=== PATIENT | female | born 1945 | race Hispanic/Latino ===

== ENCOUNTER 2017-08-18 01:42 | Inpatient (IN) | payer MEDICARE ==
[~2017-08-18] VITALS: Ht 160 cm; Wt 68.0 kg
[2017-08-18] MEDS ORDERED: SODIUM CHLORIDE 0.9% 1000ML 1,000 ML IV STA (02:00)
[2017-08-18] MEDS ORDERED: MORPHINE SULFATE 2 MG/ML SYR IV STA (02:00)
[2017-08-18] MEDS ORDERED: PANTOPRAZOLE 40 MG 10ML VIAL IV STA (02:00)
[2017-08-18] MEDS ORDERED: ONDANSETRON HCL 4 MG ORAL DISINTEGRATING TAB PO ONE (02:00)
[2017-08-18] MEDS ORDERED: PROMETHAZINE 12.5MG/ NACL 0.9% 12.5 MG/50 ML BAG IV ONE (02:00)
[2017-08-18 02:33] LABS: BASOPHILS # (AUTO) 0.1 (0.0-0.1); BASOPHILS % 0.4 % (0.0-1.0); EOSINOPHILS # (AUTO) 0.2 (0.0-0.4); EOSINOPHILS % 1.5 % (0.0-6.0); HEMATOCRIT 39.8 % (34.2-44.1); HEMOGLOBIN 13.5 g/dL (12.0-16.0); LYMPHOCYTES # (AUTO) 1.8 (1.0-3.2); MEAN CORPUSCULAR HEMOGLOBIN 29.2 pg (28-32); MEAN CORPUSCULAR HGB CONC 33.9 g/dL (31-35); MEAN CORPUSCULAR VOLUME 86.1 fL (81-99); MONOCYTES # (AUTO) 0.4 (0.2-0.8); MONOCYTES % 2.9 % (4.4-11.3); NEUTROPHILS # (AUTO) 11.6 (2.1-6.9); NEUTROPHILS % 81.6 % (38.7-80.0); PLATELET COUNT 233 x10e3/uL (140-360); RED BLOOD COUNT 4.62 x10e6/uL (3.6-5.1); RED CELL DISTRIBUTION WIDTH 12.9 % (11.7-14.4)
[2017-08-18 02:41] LABS: BILIRUBIN,URINE NEGATIVE (NEGATIVE); CLARITY,URINE CLEAR (CLEAR); COLOR,URINE YELLOW (YELLOW); KETONES,URINE NEGATIVE (NEGATIVE); LEUKOCYTE ESTERASE ,URINE NEGATIVE (NEGATIVE); NITRITE,URINE NEGATIVE (NEGATIVE); PROTEIN,URINE DIPSTICK TRACE (NEGATIVE); URINE UROBILINOGEN 0.2 mg/dL (0.2 - 1)
[2017-08-18 02:44] LABS: INR 1.08; PARTIAL THROMBOPLASTIN TIME 26.3 seconds (23.8-35.5); PROTHROMBIN TIME 13.2 seconds (11.9-14.5)
[2017-08-18 02:48] LABS: RBC,URINE 0-5 /HPF (0-5)
[2017-08-18 02:49] LABS: ALANINE AMINOTRANSFERASE 16 IU/L (0-55); ALBUMIN 3.8 g/dL (3.5-5.0); ALBUMIN/GLOBULIN RATIO 0.9 (0.8-2.0); ALKALINE PHOSPHATASE 86 IU/L (40-150); AMYLASE 116 U/L (25-125); ANION GAP 15.3 mmol/L (8-16); BLOOD UREA NITROGEN 15 mg/dL (7-26); BUN/CREATININE RATIO 18 (6-25); CALCIUM 9.3 mg/dL (8.4-10.2); CARBON DIOXIDE 28 mmol/L (22-29); CHLORIDE 103 mmol/L (98-107); CREATINE KINASE 84 IU/L (29-168); CREATININE, SERUM 0.82 mg/dL (0.57-1.11); EPITHELIAL CELLS,URINE FEW /LPF; EST GLOMERULAR FILTRATION RATE > 60 ML/MIN (60-); GLUCOSE 133 mg/dL (74-118); LIPASE 43 U/L (8-78); MAGNESIUM 2.1 MG/DL (1.3-2.1); POTASSIUM 3.3 mmol/L (3.5-5.1); SODIUM 143 mmol/L (136-145)
[2017-08-18] MEDS ORDERED: IOPAMIDOL 370 MG/ML 200 ML INFUS..BTL INJ ONE (03:59)
[2017-08-18] MEDS ORDERED: SODIUM CHLORIDE 0.9% 50ML 50 ML ONE (03:59)
--- NOTE | 2017-08-18 04:22 | Diagnostic Imaging Report ---
CHEST SINGLE (PORTABLE), 08/18/2017 2:00 AM Technique: CHEST SINGLE (PORTABLE) Comparison: None available. Clinical history: Abdominal pain Findings: Unremarkable portable appearance of the heart, mediastinum, lungs and pleural spaces. Impression: 1. Lines/Tubes: None 2. No acute abnormality. Signed by: Dr Daisy Santos MD on 08/18/2017 4:18 AM
--- NOTE | 2017-08-18 04:29 | Diagnostic Imaging Report ---
EXAM: CT ABDOMEN/PELVIS W DATE: 08/18/2017 2:00 AM INDICATION: \S\ORAL AND IV, ABD PAIN WORSE IN LLQ/N/V/CONSTIPATION \S\[id number] \S\0323 COMPARISON: None TECHNIQUE: The abdomen and pelvis were scanned using a multidetector helical scanner. Coronal and sagittal reformations were obtained. Routine protocol performed. IV Contrast: 100 ml Isovue 370 Oral contrast was administered. FINDINGS: LOWER THORAX: No consolidations LIVER/BILIARY: No masses. No ductal dilatation. GALLBLADDER: Unremarkable SPLEEN: Unremarkable PANCREAS: Unremarkable ADRENALS: No nodules KIDNEYS: No masses. Focal right inferior renal scarring. No hydronephrosis. GI TRACT: Diverticulosis is worse of the sigmoid colon with inflammatory change and thickening of the perisigmoid fascia (image 58, 59). Mild sigmoid thickening which could reflect chronic fibrosis/diverticular disease. Apparent thickening of the right/transverse colon likely related to underdistention. VESSELS: Mild atherosclerotic disease. PERITONEUM/RETROPERITONEUM: No free air or fluid LYMPH NODES: No lymphadenopathy REPRODUCTIVE ORGANS/BLADDER: Hysterectomy. BONES: No. Scattered degenerative changes worse at L5-S1. IMPRESSION: Acute uncomplicated sigmoid diverticulitis. 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 Signed by: Dr Daisy Santos MD on 08/18/2017 4:25 AM
[2017-08-18] MEDS ORDERED: LEVOFLOXACIN 500MG/D5W 100ML 100 ML IV SCH (04:30)
[2017-08-18] MEDS: METRONIDAZOLE 500MG/NS 100ML 100 ML IV SCH ×5 (05:00→23:23)
[2017-08-18] MEDS ORDERED: PROMETHAZINE HCL (IM) 25 MG/ML VIAL IV PRN (05:00)
--- OUTSIDE RECORDS SUMMARY | 2017-08-18 05:05 | XMS REPORT ---
Author Author 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 Allergies, Adverse Reactions, Alerts This patient has no known allergies or adverse reactions. Medications This patient has no known medications. Results Test Description Test Time Test Comments Text Results Atomic Results Result Comments RBC, Crossmatch 2 2016-09-23 13:59:00 Product 1 Code (test code=PRODCODE1) E0336 Unit 1 ID (test code=UNITID1) [id number] Unit 1 ABO (test code=UNITABO1) O Unit 1 Rh (test code=UNITRH1) POS Unit 1 Interp (test code=UNITINTERP1) Compatible Unit 1 Status (test code=UNITSTAT1) RE Product 2 Code (test code=PRODCODE2) E4532 Unit 2 ID (test code=UNITID2) [id number] Unit 2 ABO (test code=UNITABO2) O Unit 2 Rh (test code=UNITRH2) POS Unit 2 Interp (test code=UNITINTERP2) Compatible Unit 2 Status (test code=UNITSTAT2) RE [id number] 04:02:00* Test Item Value Reference Range Comments WBC (test code=WBC) 8.4 K/cumm 4.4-10.5 RBC (test code=RBC) 3.44 M/cumm 3.75-5.20 Hemoglobin (test code=HGB) 10.4 gm/dL 12.2-14.8 Hematocrit (test code=HCT) 30.6 % 36.5-44.4 MCV (test code=MCV) 89.0 fL 80-100 MCH (test code=MCH) 30.2 pg 27.0-32.5 MCHC (test code=MCHC) 34.0 % 32.0-37.5 RDW (test code=RDW) 13.4 % 11.5-14.5 Platelet Count (test code=PLTCT) 179 K/cumm 140-440 MPV (test code=MPV) 12.0 fL [id number] 21:30:00* Test Item Value Reference Range Comments WBC (test code=WBC) 9.9 K/cumm 4.4-10.5 RBC (test code=RBC) 3.73 M/cumm 3.75-5.20 Hemoglobin (test code=HGB) 11.2 gm/dL 12.2-14.8 Hematocrit (test code=HCT) 33.5 % 36.5-44.4 MCV (test code=MCV) 89.8 fL 80-100 MCH (test code=MCH) 30.0 pg 27.0-32.5 MCHC (test code=MCHC) 33.4 % 32.0-37.5 RDW (test code=RDW) 13.5 % 11.5-14.5 Platelet Count (test code=PLTCT) 197 K/cumm 140-440 MPV (test code=MPV) 12.0 fL [id number] 16:08:00* Test Item Value Reference Range Comments WBC (test code=WBC) 11.1 K/cumm 4.4-10.5 RBC (test code=RBC) 3.69 M/cumm 3.75-5.20 Hemoglobin (test code=HGB) 11.0 gm/dL 12.2-14.8 Hematocrit (test code=HCT) 33.0 % 36.5-44.4 MCV (test code=MCV) 89.4 fL 80-100 MCH (test code=MCH) 29.8 pg 27.0-32.5 MCHC (test code=MCHC) 33.3 % 32.0-37.5 RDW (test code=RDW) 13.3 % 11.5-14.5 Platelet Count (test code=PLTCT) 177 K/cumm 140-440 MPV (test code=MPV) 12.1 fL Antibody Screen - [id number] 12:57:00* Test Item Value Reference Range Comments Antibody Screen (test code=ABSCR) Negative Comprehensive Metabolic [id number] 12:46:00* Test Item Value Reference Range Comments Sodium (test code=NA) 141 mmol/L 135-145 Potassium (test code=K) 4.6 mmol/L 3.5-5.1 Chloride (test code=CL) 104 mmol/L 98-105 Carbon Dioxide (test code=CO2) 27 mmol/L 22-29 Anion Gap (test code=AGAP) 10 mmol/L 7-16 Glucose (test code=GLU) 103 mg/dL 70-115 Blood Urea Nitrogen (test code=BUN) 15 mg/dL 8-23 Creatinine (test code=CREAT) 0.6 mg/dL 0.5-0.9 BUN/Creatinine Ratio (test code=BCRATIO) 25.0 Calcium (test code=CA) 9.6 mg/dL 8.3-10.5 Prot Total (test code=TP) 7.2 g/dL 6.4-8.3 Albumin (test code=ALB) 4.2 g/dL 3.5-5.2 A/G Ratio (test code=AGRATIO) 1.4 Ratio Globulin (test code=GLOB) 3.0 2.9-3.1 Bili Total (test code=TBIL) 0.5 mg/dL 0.1-0.9 Alk Phos (test code=APHOS) 80 U/L 35-104 AST (test code=AST) 18 U/L 1-32 ALT (test code=ALT) 13 U/L 1-33 Estimated GFR (test code=GFR) >60 mL/min/1.73m2 eGFR (estimated Glomerular Filtration Rate) is an estimated value,calculated from the patient's serum creatinine using the MDRD equation.It is NOT the patient's actual GFR. The eGFR provides a more clinicallyuseful measure of kidney disease than serum creatinine alone.This calculation takes sex and race into account, if the informationis provided. If the race is not provided, and the patient isAfrican- Slovenian, multiply by 1.212. If sex is not provided, and thepatient is female, multiply by 0.742. Results for patients <18 years ofage have not been validated by the MDRD study and should be interpretedwith caution.eGFR Result Interpretation:eGFR > or=60 is in the Normal RangeeGFR < 60 may mean kidney diseaseeGFR < 15 may mean kidney failureRanges recommended by the National Kidney Foundation,http://nkdep.nih.gov CBC with [id number] 12:42:00* Test Item Value Reference Range Comments WBC (test code=WBC) 8.0 K/cumm 4.4-10.5 RBC (test code=RBC) 4.17 M/cumm 3.75-5.20 Hemoglobin (test code=HGB) 12.6 gm/dL 12.2-14.8 Hematocrit (test code=HCT) 37.1 % 36.5-44.4 MCV (test code=MCV) 89.0 fL 80-100 MCH (test code=MCH) 30.2 pg 27.0-32.5 MCHC (test code=MCHC) 34.0 % 32.0-37.5 RDW (test code=RDW) 13.4 % 11.5-14.5 Platelet Count (test code=PLTCT) 194 K/cumm 140-440 MPV (test code=MPV) 12.0 fL Diff Method (test code=DIFFM) Smear Neutrophil (test code=NEUT) 74.9 % 36-70 Lymphocyte (test code=LYMPH) 17.9 % 12-44 Monocyte (test code=MONO) 4.5 % 0-11 Eosinophil (test code=EOS) 2.4 % 0-7 Basophil (test code=BASO) 0.3 % 0-2 Neutro Abs (test code=ANEUT) 6.0 K/cumm 1.6-7.4 Lymph Abs (test code=ALYMPH) 1.4 K/cumm 0.5-4.6 [place]verse Abs (test code=AMONO) 0.4 K/cumm 0.0-1.2 Eos Abs (test code=AEOS) 0.19 K/cumm 0.00-0.74 Baso Abs (test code=ABASO) 0.0 K/cumm 0.00-0.21 RBC Morphology (test code=RBCMRPH) Normal Platelet Est (test code=PLTEST) Adequate Platelets on Smear Few platelet clumps noted on smear Prothrombin [id number] 12:41:00* Test Item Value Reference Range Comments PT (test code=PT) 10.2 seconds 9.6-13.1 INR (test code=INR) 1.02 Ratio 0.6-1.2 Partial Thromboplastin [id number] 12:41:00* Test Item Value Reference Range Comments aPTT (test code=PTT) 23.1 seconds 22.4-33.2 Blood Type and [id number] 12:35:00* Test Item Value Reference Range Comments ABO type (test code=ABO) A Rh Type (test code=RH) Positive Occult [id number] 12:20:00* Test Item Value Reference Range Comments Occ Bld (test code=HSOB) Positive Negative CHEST SINGLE (PORTABLE) [place] [address] Patient Name: KAI MARIE MR #: [id number] : 1945 Age/Sex: 71/F Req #: [id number] Adm Physician: Ordered by: LISA WRIGHT MD Report #: [id number] Location: ER Room/Bed: Procedure: [id number] DX/ CHEST SINGLE (PORTABLE) Exam Date: 08/18/17 Exam Time: 334 REPORT STATUS: Signed CHEST SINGLE (PORTABLE), 08/18/2017 2: 00 AM Technique: CHEST SINGLE (PORTABLE) Comparison: None available. Clinical history: Abdominal pain Findings: Unremarkable portable appearance of the heart, mediastinum, lungs and pleural spaces. Impression: 1. Lines/Tubes: None 2. No acute abnormality. Signed by: Dr Michelle Santos MD on 08/18/2017 4:18 AM Dictated By: MICHELLE SANTOS MD 7 Transcribed By: KAIT on 08/18/17417 COPY TO: LISA WRIGHT MD CT ABDOMEN /PELVIS W [facility] [address] [place] [address] Patient Name: KAI MARIE MR #: [id number] : 1945 Age/Sex: 71/F Req #: [id number] Adm Physician: Ordered by: LISA WRIGHT MD Report #: [id number] Location: ER Room/Bed: Procedure: [id number] CT/CT ABDOMEN/PELVIS W Exam Date: 08/18/17 Exam Time: 322 REPORT STATUS: Signed EXAM: CT ABDOMEN/PELVIS W DATE: 08/18/2017 2:00 AM INDICATION: S ORAL AND IV, ABD PAIN WORSE IN LLQ/N/V/CONSTIPATION S [id number] COMPARISON: None TECHNIQUE: The abdomen and pelvis were scanned using a multidetector helical scanner. Coronal and sagittal reformations were obtained. Routine protocol performed. IV Contrast: 100 ml Isovue 370 Oral contrast was administered. FINDINGS: LOWER THORAX: No consolidations LIVER/BILIARY: No masses. No ductal dilatation. GALLBLADDER: Unremarkable SPLEEN: Unremarkable PANCREAS: Unremarkable ADRENALS: No nodules KIDNEYS: No masses. Focal right inferior renal scarring. No hydronephrosis. GI TRACT: Diverticulosis is worse of the sigmoid colon with inflammatory change and thickening of the perisigmoid fascia (image 58, 59). Mild sigmoid thickening which could reflect chronic fibrosis/ diverticular disease. Apparent thickening of the right/transverse colon likely related to underdistention. VESSELS: Mild atherosclerotic disease. PERITONEUM/RETROPERITONEUM: No free air or fluid LYMPH NODES: No lymphadenopathy REPRODUCTIVE ORGANS/BLADDER: Hysterectomy. BONES: No. Scattered degenerative changes worse at L5-S1. IMPRESSION: Acute uncomplicated sigmoid diverticulitis. 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 Signed by: Dr Michelle Santos MD on 2017 4:25 AM Dictated By: MICHELLE SANTOS MD 4 Transcribed By: KAIT on 08/18/17424 COPY TO: LISA WRIGHT MD
[2017-08-18] MEDS: SODIUM CHLORIDE 0.9% 1000ML 1,000 ML IV SCH ×2 (06:15→17:15)
[2017-08-18 06:16] VITALS: BP 190/78
[2017-08-18] MEDS: MORPHINE SULFATE 2 MG/ML SYR IV PRN ×3 (06:56→16:38)
[2017-08-18 08:00] VITALS: BP 159/72
--- NOTE | 2017-08-18 08:35 | History and Physical ---
PRIMARY CARE PHYSICIAN: Doctor in [place]. CHIEF COMPLAINT: Abdominal pain, nausea, vomiting and diarrhea. HISTORY OF PRESENT ILLNESS: A 71-year-old woman with a history of diverticulitis, now developing lower abdominal pain over the past month now worsening. Pain now 10/10 with diarrhea and vomiting for the past few days. Therefore, she came to the hospital. Here she was found to have acute diverticulitis. She was admitted for further evaluation and management. PAST MEDICAL HISTORY: Diverticulitis, right renal cancer, status post partial nephrectomy. PAST SURGICAL HISTORY: Hysterectomy, right renal cancer, status post partial nephrectomy. ALLERGIES: PER ELECTRONIC MEDICAL RECORD. FAMILY HISTORY/SOCIAL HISTORY: Patient is . She has 2 children. One is . No alcohol, illicits or cigarettes. MEDICATIONS: Per electronic medical record. REVIEW OF SYSTEMS: Denies any dizziness or chest pain. PHYSICAL EXAMINATION VITAL SIGNS: Reviewed. GENERAL: A tired-appearing woman resting in bed. HEENT: Anicteric. Pupils respond to light. No oral lesions. CARDIOVASCULAR: Normal S1 and S2. LUNGS: Moderate breath sounds. ABDOMEN: Soft and nondistended. She has tenderness in the lower quadrants. EXTREMITIES: No edema or calf tenderness. NEUROLOGICAL: Alert and oriented times 3. Moving all extremities. SKIN: Dry. PSYCHIATRIC: Flat affect. LABS: Reviewed. MEDICATIONS: Reviewed. ASSESSMENT AND PLAN: A 71-year-old woman with: 1. Acute sigmoid diverticulitis: Make the patient n.p.o. Intravenous fluid rehydration. Intravenous Levaquin and intravenous Flagyl. 2. Urinary tract infection: Treat with Levaquin and follow up cultures. 3. Hypertension: Treat empirically. 4. Overweight state: Body mass index 26.6. Hemoglobin A1c and lipid panel. 5. Abdominal pain: Use p.r.n. pain medications. 6. Prophylaxis: Use sequential compression devices and proton pump inhibitor. 7. Disposition: Monitor closely. N.p.o. today. Reassess tomorrow. Follow up urine culture. Job#: [id number] [place]
[2017-08-18 08:49] VITALS: BP 159/72
[2017-08-18] MEDS ORDERED: POTASSIUM CHLORIDE 20MEQ/100ML 100 ML IV ONE (09:00)
[2017-08-18] MEDS ORDERED: FAMOTIDINE 20 MG/2 ML VIAL IV SCH (09:00)
[2017-08-18] MEDS: PANTOPRAZOLE 40 MG 10ML VIAL IV SCH (09:00)
[2017-08-18 12:49] VITALS: BP 151/67
[2017-08-18 15:50] VITALS: BP 169/72
[2017-08-18 20:58] VITALS: BP 172/76
[2017-08-18] MEDS: LABETALOL HCL 100 MG TAB PO SCH (22:21)
[2017-08-19] VITALS (8 sets, daily range): BP systolic 130–164; BP diastolic 66–84
[2017-08-19] MEDS: SODIUM CHLORIDE 0.9% 1000ML 1,000 ML IV SCH ×3 (00:47→20:47)
[2017-08-19] MEDS: METRONIDAZOLE 500MG/NS 100ML 100 ML IV SCH ×4 (05:41→23:26)
[2017-08-19 07:28] LABS: BASOPHILS # (AUTO) 0.1 (0.0-0.1); BASOPHILS % 0.6 % (0.0-1.0); EOSINOPHILS # (AUTO) 0.2 (0.0-0.4); EOSINOPHILS % 2.3 % (0.0-6.0); HEMATOCRIT 35.8 % (34.2-44.1); HEMOGLOBIN 11.9 g/dL (12.0-16.0); LYMPHOCYTES # (AUTO) 1.8 (1.0-3.2); LYMPHOCYTES % 20.6 % (18.0-39.1); MEAN CORPUSCULAR HEMOGLOBIN 29.2 pg (28-32); MEAN CORPUSCULAR HGB CONC 33.2 g/dL (31-35); MEAN CORPUSCULAR VOLUME 87.7 fL (81-99); MONOCYTES # (AUTO) 0.5 (0.2-0.8); MONOCYTES % 6.3 % (4.4-11.3); NEUTROPHILS % 69.7 % (38.7-80.0); PLATELET COUNT 193 x10e3/uL (140-360); RED BLOOD COUNT 4.08 x10e6/uL (3.6-5.1); RED CELL DISTRIBUTION WIDTH 13.2 % (11.7-14.4)
[2017-08-19 07:53] LABS: ALANINE AMINOTRANSFERASE 15 IU/L (0-55); ALBUMIN/GLOBULIN RATIO 0.9 (0.8-2.0); ALKALINE PHOSPHATASE 65 IU/L (40-150); ANION GAP 10.6 mmol/L (8-16); BLOOD UREA NITROGEN 8 mg/dL (7-26); BUN/CREATININE RATIO 11 (6-25); CALCIUM 8.7 mg/dL (8.4-10.2); CARBON DIOXIDE 25 mmol/L (22-29); CHLORIDE 106 mmol/L (98-107); CREATININE, SERUM 0.73 mg/dL (0.57-1.11); EST GLOMERULAR FILTRATION RATE > 60 ML/MIN (60-); GLUCOSE 90 mg/dL (74-118); POTASSIUM 3.6 mmol/L (3.5-5.1); SODIUM 138 mmol/L (136-145)
[2017-08-19] MEDS: LEVOFLOXACIN 500MG/D5W 100ML 100 ML IV SCH (08:25)
[2017-08-19] MEDS: LABETALOL HCL 100 MG TAB PO SCH ×2 (08:26→20:34)
[2017-08-19] MEDS: PANTOPRAZOLE 40 MG 10ML VIAL IV SCH (08:26)
[2017-08-19] MEDS: MORPHINE SULFATE 2 MG/ML SYR IV PRN (09:23)
[2017-08-19] MEDS ORDERED: POTASSIUM CHLORIDE 20MEQ/100ML 100 ML IV ONE (15:30)
[2017-08-19 17:42] LABS: BASOPHILS % 0.4 % (0.0-1.0); EOSINOPHILS # (AUTO) 0.2 (0.0-0.4); EOSINOPHILS % 2.4 % (0.0-6.0); HEMATOCRIT 33.6 % (34.2-44.1); HEMOGLOBIN 11.3 g/dL (12.0-16.0); LYMPHOCYTES # (AUTO) 1.3 (1.0-3.2); LYMPHOCYTES % 13.7 % (18.0-39.1); MEAN CORPUSCULAR HEMOGLOBIN 29.2 pg (28-32); MEAN CORPUSCULAR HGB CONC 33.6 g/dL (31-35); MEAN CORPUSCULAR VOLUME 86.8 fL (81-99); MONOCYTES # (AUTO) 0.5 (0.2-0.8); MONOCYTES % 5.3 % (4.4-11.3); NEUTROPHILS # (AUTO) 7.4 (2.1-6.9); NEUTROPHILS % 77.7 % (38.7-80.0); PLATELET COUNT 181 x10e3/uL (140-360); RED BLOOD COUNT 3.87 x10e6/uL (3.6-5.1); RED CELL DISTRIBUTION WIDTH 13.2 % (11.7-14.4)
--- NOTE | 2017-08-19 18:40 | Progress Note ---
DATE: August 19, 2017 INTERNAL MEDICINE PROGRESS NOTE TIME: 1620 hours. OVERNIGHT: Improvement in symptoms. REVIEW OF SYSTEMS: Patient denies shortness of breath or chest pain. Furthermore, denies headache, dizziness, or vomiting. Denies constipation. Continues with complaint of lower abdomen pain with soft stools and flatus. Denies any nausea or vomiting. PHYSICAL EXAMINATION VITAL SIGNS: Temperature 98.6 orally, pulse 83, respirations 18, blood pressure is 145/66, and pulse ox 98% on room air. Blood pressure taken after patient returned from bathroom. GENERAL: This is a tired-appearing elderly female, lying supine in bed. HEENT: Oral mucosa moist and intact. PERRLA. No sinus tenderness. CARDIOVASCULAR: S1 and S2 auscultated without clicks, murmurs, or rubs. LUNGS: Bilateral breath sounds CTA with good excursion. ABDOMEN: Soft and nondistended. Patient has tenderness in the lower quadrants to include the umbilical area. EXTREMITIES: No edema or calf tenderness. SKIN: Dry. PSYCHIATRIC: Flat affect. NEUROLOGIC: Moves all extremities and follows all commands. Conversant and alert and oriented x3. LABS: WBCs are 8.6 and H and H is 11.9 and 35.8 respectively, and platelet count is 193. Chemistries with sodium 138, potassium 3.6, chloride 106, CO2 25, gap 10.6, BUN is 8, creatinine 0.73, and estimated GFR is greater than 60. Total protein is low at 6.3 with an albumin of 3. Amylase and lipase within normal limits from previous days prior. Lipid panel within normal limits. MEDICATIONS 1. Flagyl q.6h. IV. 2. P.r.n. IV morphine sulfate as needed every 4 hours. 3. Labetalol 150 mg p.o. q.12h. 4. Protonix 40 mg IV daily. 5. Levaquin IV daily. 6. IV fluids at 100 mL/hour normal saline. 7. P.r.n. labetalol q.2h. for elevated blood pressure. 8. P.r.n. Zofran q.4h. p.r.n. 4 mg nausea and vomiting. 9. Phenergan 6.25 mg q.4h. p.r.n. IV nausea and vomiting. ASSESSMENT AND PLAN: This is a 71-year-old woman with; 1. Acute sigmoid diverticulitis: Failed outpatient treatment. Patient NPO day #2 with slight improvement, consider advancing diet to clear liquids in morning. Continue IV Levaquin and Flagyl. 2. Urinary tract infection: Levaquin and follow up urinary cultures. 3. Hypertension: Advancing beta dalila, can titrate on following day. 4. Overweight state, body mass index greater than 25: Hemoglobin A1c 5.5 and lipid panel within normal limits. Caloric restriction as an outpatient. 1. Prophylaxis: Sequential compression devices and proton pump inhibitor. 2. Disposition: Obtain H and H for reports of purnima stool. Continue NPO as the patient has only slight improvement in cramping symptoms. Urine culture is positive for gram-negative rods and contamination. Covered by Silvia. Dictated By: Carrie Liao NP Job#: [id number] VINEET
[2017-08-20] VITALS (9 sets, daily range): BP systolic 133–150; BP diastolic 60–70
[2017-08-20] MEDS: SODIUM CHLORIDE 0.9% 1000ML 1,000 ML IV SCH ×3 (03:16→17:18)
[2017-08-20] MEDS: METRONIDAZOLE 500MG/NS 100ML 100 ML IV SCH ×3 (05:20→17:18)
[2017-08-20 07:04] LABS: BASOPHILS % 0.5 % (0.0-1.0); EOSINOPHILS # (AUTO) 0.2 (0.0-0.4); EOSINOPHILS % 2.8 % (0.0-6.0); HEMATOCRIT 34.2 % (34.2-44.1); HEMOGLOBIN 11.5 g/dL (12.0-16.0); LYMPHOCYTES # (AUTO) 1.5 (1.0-3.2); LYMPHOCYTES % 17.7 % (18.0-39.1); MEAN CORPUSCULAR HEMOGLOBIN 29.1 pg (28-32); MEAN CORPUSCULAR HGB CONC 33.6 g/dL (31-35); MEAN CORPUSCULAR VOLUME 86.6 fL (81-99); MONOCYTES # (AUTO) 0.5 (0.2-0.8); MONOCYTES % 5.4 % (4.4-11.3); NEUTROPHILS # (AUTO) 6.3 (2.1-6.9); PLATELET COUNT 195 x10e3/uL (140-360); RED BLOOD COUNT 3.95 x10e6/uL (3.6-5.1)
[2017-08-20 07:32] LABS: ALANINE AMINOTRANSFERASE 12 IU/L (0-55); ALBUMIN/GLOBULIN RATIO 0.9 (0.8-2.0); ALKALINE PHOSPHATASE 74 IU/L (40-150); ANION GAP 12.5 mmol/L (8-16); BLOOD UREA NITROGEN 7 mg/dL (7-26); BUN/CREATININE RATIO 10 (6-25); CALCIUM 8.7 mg/dL (8.4-10.2); CARBON DIOXIDE 23 mmol/L (22-29); CHLORIDE 107 mmol/L (98-107); CREATININE, SERUM 0.67 mg/dL (0.57-1.11); EST GLOMERULAR FILTRATION RATE > 60 ML/MIN (60-); GLUCOSE 71 mg/dL (74-118); POTASSIUM 3.5 mmol/L (3.5-5.1); SODIUM 139 mmol/L (136-145)
[2017-08-20] MEDS: MORPHINE SULFATE 2 MG/ML SYR IV PRN (09:12)
[2017-08-20] MEDS: PANTOPRAZOLE 40 MG 10ML VIAL IV SCH (09:34)
[2017-08-20] MEDS: LEVOFLOXACIN 500MG/D5W 100ML 100 ML IV SCH (09:34)
[2017-08-20] MEDS: LABETALOL HCL 100 MG TAB PO SCH ×2 (09:34→20:51)
[2017-08-20] MEDS: ONDANSETRON HCL 4 MG ORAL DISINTEGRATING TAB PO PRN (09:35)
--- NOTE | 2017-08-20 11:13 | Progress Note ---
DATE: August 20, 2017 TIME: 6:49 a.m. OVERNIGHT: Some blood per rectum. REVIEW OF SYSTEMS: Denies any dizziness or chest pain. PHYSICAL EXAMINATION VITAL SIGNS: Reviewed. GENERAL: A tired-appearing woman resting in bed. HEENT: Anicteric. CARDIOVASCULAR: Normal S1 and S2. LUNGS: Moderate breath sounds. ABDOMEN: Soft and nondistended. She has left lower abdominal tenderness. EXTREMITIES: No edema. SKIN: Dry. PSYCHIATRIC: Flat affect. LABS: Reviewed. MEDICATIONS: Reviewed. ASSESSMENT: This is a 71-year-old woman with: 1. Acute sigmoid diverticulitis. 2. Rectal bleeding. 3. Urinary tract infection with gram-negative rods. 4. Overweight state: Body mass index 26.6. Hemoglobin A1c is 5.5, LDL is 90. 5. Abdominal pain. PLAN 1. Continue IV metronidazole and IV Levaquin. 2. Continue blood pressure control. 3. Continue IV PPI. 4. Endoscopy is pending. 5. Continue n.p.o. status at this time. 6. Check H and H. 7. Follow up urine culture. Job#: [id number] MARI
[2017-08-21] VITALS (7 sets, daily range): BP systolic 123–155; BP diastolic 58–67
[2017-08-21] MEDS: METRONIDAZOLE 500MG/NS 100ML 100 ML IV SCH ×4 (00:08→17:29)
[2017-08-21] MEDS: SODIUM CHLORIDE 0.9% 1000ML 1,000 ML IV SCH ×4 (03:05→17:30)
[2017-08-21] MEDS ORDERED: AZTREONAM 0.5 GM in WATER STERILE 10ML VIAL 10 ML IV SCH (07:15)
[2017-08-21] MEDS: LABETALOL HCL 100 MG TAB PO SCH ×2 (08:17→21:27)
[2017-08-21] MEDS: PANTOPRAZOLE 40 MG 10ML VIAL IV SCH (08:17)
[2017-08-21] MEDS: AZTREONAM 1 GM VIAL IV SCH ×3 (08:51→21:28)
[2017-08-21] MEDS: ONDANSETRON HCL 4 MG ORAL DISINTEGRATING TAB PO PRN (08:52)
[2017-08-21] MEDS: LEVOFLOXACIN 500MG/D5W 100ML 100 ML IV SCH (08:52)
--- NOTE | 2017-08-21 08:54 | Progress Note ---
DATE: August 21, 2017 TIME: 8:26 a.m. OVERNIGHT: Abdominal discomfort with diet. REVIEW OF SYSTEMS: Denies any dizziness. PHYSICAL EXAMINATION VITAL SIGNS: Reviewed. GENERAL: A tired-appearing woman resting in bed. HEENT: Anicteric. CARDIOVASCULAR: Normal S1 and S2. LUNGS: Moderate breath sounds. ABDOMEN: Soft and nontender. She has mild midabdominal discomfort on palpation. EXTREMITIES: No edema. SKIN: Dry. PSYCHIATRIC: Flat affect. LABS: Reviewed. MEDICATIONS: Reviewed. ASSESSMENT: A 71-year-old woman with: 1. Acute sigmoid diverticulitis. 2. Rectal bleeding. 3. Urinary tract infection with Escherichia coli. 4. Overweight state: Body mass index 26.6. Hemoglobin A1c 5.5, LDL 90. 5. Abdominal pain. PLAN 1. Start IV aztreonam due penicillin and sulfa allergy and for E. coli urinary tract infection. 2. Diet per GI service. 3. Monitor H and H. 4. Leukocytosis has resolved. 5. Continue current management. Job#: [id number] MARI
[2017-08-21] MEDS ORDERED: MORPHINE SULFATE 2 MG/ML SYR IV PRN (12:15)
[2017-08-22] VITALS (8 sets, daily range): BP systolic 135–163; BP diastolic 63–73
[2017-08-22] MEDS: METRONIDAZOLE 500MG/NS 100ML 100 ML IV SCH ×5 (00:12→23:18)
[2017-08-22] MEDS: AZTREONAM 1 GM VIAL IV SCH ×2 (06:36→13:22)
--- NOTE | 2017-08-22 07:35 | Progress Note ---
DATE: August 22, 2017 TIME: 6 a.m. OVERNIGHT: Feeling a little better. Continues on liquid diet. REVIEW OF SYSTEMS: Denies any dizziness or chest pain. PHYSICAL EXAMINATION VITAL SIGNS: Reviewed. GENERAL: A tired-appearing woman resting in bed. HEENT: Anicteric. CARDIOVASCULAR: Normal S1 and S2. LUNGS: Moderate breath sounds. ABDOMEN: Soft and nondistended. She has tenderness and diffuse which is mild. EXTREMITIES: No edema. SKIN: Dry. PSYCHIATRIC: Flat affect. LABS: Reviewed. MEDICATIONS: Reviewed. ASSESSMENT: A 71-year-old woman with: 1. Acute sigmoid diverticulitis. 2. Rectal bleeding. 3. Urinary tract infection with Escherichia coli. 4. Overweight state: Body mass index 26.6. Hemoglobin A1c 5.5. 5. Abdominal pain. PLAN 1. Continue IV aztreonam for E. coli urinary tract infection. 2. Continue liquid diet per GI services. 3. Follow H and H. 4. Leukocytosis has resolved. 5. Renal function appears normal. 6. Continue current care. Continue Flagyl and Levaquin. Job#: [id number] MARI
[2017-08-22] MEDS: SODIUM CHLORIDE 0.9% 1000ML 1,000 ML IV SCH ×2 (07:59→18:47)
[2017-08-22] MEDS: LEVOFLOXACIN 500MG/D5W 100ML 100 ML IV SCH (07:59)
[2017-08-22] MEDS: PANTOPRAZOLE 40 MG 10ML VIAL IV SCH (07:59)
[2017-08-22] MEDS: LABETALOL HCL 100 MG TAB PO SCH ×2 (08:00→21:11)
[2017-08-22] MEDS: AZTREONAM IV SCH (21:53)
[2017-08-22] MEDS: SODIUM CHLORIDE 0.9% IV SCH (21:53)
[2017-08-23] VITALS: BP 147/68
[2017-08-23] MEDS: SODIUM CHLORIDE 0.9% 1000ML 1,000 ML IV SCH ×2 (04:36→14:47)
[2017-08-23] MEDS: LABETALOL HCL 5 MG/ML 20ML VIAL IV PRN ×2 (05:09→23:43)
[2017-08-23] MEDS: SODIUM CHLORIDE 0.9% IV SCH ×3 (05:30→21:29)
[2017-08-23] MEDS: AZTREONAM IV SCH ×3 (05:30→21:29)
[2017-08-23] MEDS: METRONIDAZOLE 500MG/NS 100ML 100 ML IV SCH ×4 (06:05→23:30)
[2017-08-23 06:28] LABS: BASOPHILS % 0.5 % (0.0-1.0); EOSINOPHILS # (AUTO) 0.3 (0.0-0.4); EOSINOPHILS % 4.3 % (0.0-6.0); HEMATOCRIT 33.1 % (34.2-44.1); HEMOGLOBIN 11.3 g/dL (12.0-16.0); LYMPHOCYTES # (AUTO) 1.6 (1.0-3.2); LYMPHOCYTES % 28.3 % (18.0-39.1); MEAN CORPUSCULAR HEMOGLOBIN 29.4 pg (28-32); MEAN CORPUSCULAR HGB CONC 34.1 g/dL (31-35); MEAN CORPUSCULAR VOLUME 86.2 fL (81-99); MONOCYTES # (AUTO) 0.5 (0.2-0.8); MONOCYTES % 8.3 % (4.4-11.3); NEUTROPHILS # (AUTO) 3.3 (2.1-6.9); NEUTROPHILS % 58.1 % (38.7-80.0); PLATELET COUNT 196 x10e3/uL (140-360); RED BLOOD COUNT 3.84 x10e6/uL (3.6-5.1); RED CELL DISTRIBUTION WIDTH 13.5 % (11.7-14.4)
[2017-08-23 07:45] VITALS: BP 156/67
[2017-08-23] MEDS ORDERED: HYDROCODONE/APAP 5MG-325MG TAB PO PRN (08:00)
[2017-08-23] MEDS: PANTOPRAZOLE 40 MG 10ML VIAL IV SCH (08:06)
[2017-08-23] MEDS: LEVOFLOXACIN 500MG/D5W 100ML 100 ML IV SCH (08:06)
[2017-08-23] MEDS: LABETALOL HCL 100 MG TAB PO SCH ×2 (08:06→20:54)
[2017-08-23 08:19] VITALS: BP 151/80
[2017-08-23 15:55] VITALS: BP 138/64
[2017-08-23 19:43] VITALS: BP 158/73
[2017-08-23 20:55] VITALS: BP 158/73
[2017-08-24] VITALS (7 sets, daily range): BP systolic 141–162; BP diastolic 65–74
[2017-08-24] MEDS: SODIUM CHLORIDE 0.9% 1000ML 1,000 ML IV SCH ×3 (03:33→21:25)
[2017-08-24] MEDS: LABETALOL HCL 5 MG/ML 20ML VIAL IV PRN (05:10)
[2017-08-24] MEDS: SODIUM CHLORIDE 0.9% IV SCH ×3 (05:10→21:25)
[2017-08-24] MEDS: AZTREONAM IV SCH ×3 (05:10→21:25)
[2017-08-24] MEDS: METRONIDAZOLE 500MG/NS 100ML 100 ML IV SCH ×3 (06:00→17:46)
--- NOTE | 2017-08-24 07:49 | Progress Note ---
DATE: August 23, 2017 TIME: 7:15 a.m. OVERNIGHT: Feeling a little better. REVIEW OF SYSTEMS: Denies any dizziness. PHYSICAL EXAMINATION VITAL SIGNS: Reviewed. GENERAL: A tired-appearing woman resting in bed. HEENT: Anicteric. CARDIOVASCULAR: Normal S1 and S2. LUNGS: Moderate breath sounds. ABDOMEN: Soft and nondistended. Mild tenderness in the midabdomen. EXTREMITIES: No edema. SKIN: Dry. PSYCHIATRIC: Flat affect. LABS: Reviewed. MEDICATIONS: Reviewed. ASSESSMENT: A 71-year-old woman with: 1. Acute sigmoid diverticulitis. 2. Rectal bleeding. 3. Urinary tract infection with Escherichia coli. 4. Overweight state: Body mass index 26.6. Hemoglobin A1c 5.5. 5. Abdominal pain. PLAN 1. IV antibiotics for E. coli urinary tract infection. 2. Liquid diet . 3. Follow up H and H. 4. Discontinue IV pain medications. Use oral medication. 5. Continue ambulation. Job#: [id number] MARI
--- NOTE | 2017-08-24 07:58 | Progress Note ---
DATE: August 24, 2017 TIME: 7:28 a.m. OVERNIGHT: No events. REVIEW OF SYSTEMS: Denies any dizziness. PHYSICAL EXAMINATION VITAL SIGNS: Reviewed. GENERAL: A tired-appearing woman resting in bed. HEENT: Anicteric. Pupils respond to light. CARDIOVASCULAR: Normal S1 and S2. LUNGS: Moderate breath sounds. ABDOMEN: Soft, nontender and nondistended. EXTREMITIES: No edema. SKIN: Dry. PSYCHIATRIC: Flat affect. LABS: Reviewed. MEDICATIONS: Reviewed. ASSESSMENT: A 71-year-old woman with: 1. Acute sigmoid diverticulitis. 2. Rectal bleeding. 3. Urinary tract infection with Escherichia coli. 4. Overweight state: Body mass index 26.6. Hemoglobin A1c 5.5. 5. Abdominal pain. PLAN 1. IV antibiotics for urinary tract infection. 2. GI service managing diet. The patient is on a soft diet currently. 3. Follow H and H. 4. Leukocytosis has resolved. 5. Renal function is stable. 6. The patient is doing better. 7. Discharge planning. Job#: [id number] [place]
[2017-08-24] MEDS: LEVOFLOXACIN 500MG/D5W 100ML 100 ML IV SCH (08:57)
[2017-08-24] MEDS: PANTOPRAZOLE 40 MG 10ML VIAL IV SCH (08:58)
[2017-08-24] MEDS: LABETALOL HCL 100 MG TAB PO SCH ×2 (08:58→21:25)
[2017-08-25] VITALS: BP 152/70
[2017-08-25] MEDS: METRONIDAZOLE 500MG/NS 100ML 100 ML IV SCH (02:03)
[2017-08-25 04:00] VITALS: BP 167/72
[2017-08-25] MEDS: AZTREONAM IV SCH (06:05)
[2017-08-25] MEDS: SODIUM CHLORIDE 0.9% IV SCH (06:05)
[2017-08-25] MEDS: SODIUM CHLORIDE 0.9% 1000ML 1,000 ML IV SCH (06:47)
[2017-08-25 07:39] VITALS: BP 164/74
[2017-08-25] MEDS ORDERED: FLAGYL500 MG PO (07:49)
[2017-08-25] MEDS ORDERED: PANTOPRAZOLE SO40 MG PO (07:49)
[2017-08-25] MEDS ORDERED: ZOFRAN ODT4 MG PO (07:49)
[2017-08-25] MEDS ORDERED: LEVAQUIN500 MG PO (07:49)
[2017-08-25] MEDS ORDERED: SENNA LAX8.6 MG PO (07:49)
[2017-08-25] MEDS ORDERED: LABETALOL HCL100 MG PO (07:49)
[2017-08-25] MEDS: LEVOFLOXACIN 500MG/D5W 100ML 100 ML IV SCH (08:50)
[2017-08-25] MEDS: PANTOPRAZOLE 40 MG 10ML VIAL IV SCH (08:51)
--- NOTE | 2017-08-25 08:52 | Discharge Summary ---
PRINCIPAL DIAGNOSES 1. Acute sigmoid diverticulitis. 2. Rectal bleeding. 3. Urinary tract infection with Escherichia coli. 4. Abdominal pain. 5. Overweight state. BMI 26.6. Hemoglobin A1c of 5.5. SECONDARY DIAGNOSIS: Diverticulosis. CHIEF COMPLAINT: Abdominal pain, nausea and vomiting and diarrhea. HISTORY OF PRESENT ILLNESS: A 71-year-old woman developing abdominal pain, nausea and vomiting and diarrhea. Please refer to H\T\P for further details. HOSPITAL COURSE: The patient was found to have sigmoid diverticulitis. She was on n.p.o. status and subsequently transitioned to clear liquid diet, and now tolerating a soft GI diet. She was treated with antibiotics. She was also found to have E. coli urinary tract infection treated with aztreonam. The patient had rectal bleeding, but the hemoglobin has remained stable. She has overweight state with BMI of 26.6, hemoglobin A1c 5.5. She is doing well tolerating a soft GI diet. She is currently appropriate for discharge. DISCHARGE MEDICATIONS: Per electronic medical records. Discharge medications include Levaquin and Flagyl for 5 days. DISCHARGE DIET: She needs to increase fiber in diet and caloric restriction for weight loss which will assist in any further flares of diverticulitis. FOLLOWUP INSTRUCTIONS: Follow up with primary care physician in one week. Followup with Dr. Maravilla in 2 weeks. CONDITION ON DISCHARGE: Stable. DISCHARGE LOCATION: Home with physical therapy. FLOR MARTIN MD Job#: [id number]
[2017-08-25 08:56] VITALS: BP 164/74
[2017-08-25] MEDS ORDERED: LABETALOL HCL 100 MG TAB PO SCH (09:00)
== END 2017-08-25 14:14 | disposition home or self-care (01) | DRG 378 ==
LOC: ER 01:42 → ERHOLD 05:03 → MED/SURG 06:09
PROVIDERS: ADMIT Internal Medicine; ATTEND Internal Medicine
DX: K57.33 Diverticulitis of large intestine without perforation or abscess with bleeding (principal); N39.0 Urinary tract infection, site not specified; I10 Essential (primary) hypertension; E66.9 Obesity, unspecified; Z68.26 Body mass index [BMI] 26.0-26.9, adult; B96.20 Unspecified Escherichia coli [E. coli] as the cause of diseases classified elsewhere; Z85.528 Personal history of other malignant neoplasm of kidney; Z90.5 Acquired absence of kidney
CPT/HCPCS: 36415; 71045; 74177; 80053; 80061; 81001; 82150; 82550; 82553; 83036; 83605; 83690; 83735; 84484; 85025; 85610; 85730; 87086; 87186; 93005; 99284; J1956; J2270; J2550; J3480; J7030; Q9967

== ENCOUNTER → 2017-11-19 | Outpatient (CLI) | payer MEDICARE ==
[~2017-11-19] MED LIST: FLAGYL500 MG PO; LABETALOL HCL100 MG PO; LEVAQUIN500 MG PO; PANTOPRAZOLE SO40 MG PO; SENNA LAX8.6 MG PO; ZOFRAN ODT4 MG PO
--- NOTE | 2017-11-19 09:09 | Diagnostic Imaging Report ---
PROCEDURE: Frontal and lateral views of the chest. COMPARISON: None. INDICATIONS: "follow up right kidney cancer september 2015" FINDINGS: Lines/tubes: None. Lungs: The lungs are well inflated and clear. There is no evidence of pneumonia or pulmonary edema. Pleura: There is no pleural effusion or pneumothorax. Heart and mediastinum: The cardiomediastinal silhouette is unremarkable. Bones: No acute bony abnormality. Scattered degenerative changes. IMPRESSION: No acute cardiopulmonary disease. No specific radiographic evidence of metastatic disease in the thorax as clinically queried however CT chest would be more sensitive for evaluation. Dictated by: BEBETO LOFTON M.D. on 11/19/2017 at 9:13 Electronically approved by: BEBETO LOFTON M.D. on 11/19/2017 at 9:13
--- NOTE | 2017-11-19 09:33 | Diagnostic Imaging Report ---
PROCEDURE:US RETROPERITONEAL ( KIDNEY ). COMPARISON:None. INDICATIONS:Follow Up Renal Cancer TECHNIQUE:Ultrasound examination was performed of the kidneys and bladder. FINDINGS: RIGHT KIDNEY:Measures up to 10.9. Normal echogenicity. No hydronephrosis or stone. No evidence of solid mass. LEFT KIDNEY:Bowel gas somewhat limits visualization. Measures up to 9.8 cm. Normal echogenicity and no hydronephrosis or stone. No evidence of solid mass. BLADDER:Normal. Bilateral ureteral jets are visualized. CONCLUSION: Unremarkable renal ultrasound. No evidence of solid mass or hydronephrosis. DICTATED BY: BEBETO LOFTON M.D. ON 11/19/2017 AT 9:37 ELECTRONICALLY APPROVED BY: BEBETO LOFTON M.D. ON 11/19/2017 AT 9:37
== END ==
LOC: US 08:29
PROVIDERS: ATTEND Urology
DX: C64.1 Malignant neoplasm of right kidney, except renal pelvis (principal)
CPT/HCPCS: 71046; 76770

== ENCOUNTER 2018-10-29 06:53 | Inpatient (IN) | payer MEDICARE ==
[2018-10-28 10:08] LABS: BASOPHILS # (AUTO) 0.1 (0.0-0.1); EOSINOPHILS # (AUTO) 0.2 (0.0-0.4); EOSINOPHILS % 2.2 % (0.0-6.0); HEMATOCRIT 38.9 % (34.2-44.1); HEMOGLOBIN 12.8 g/dL (12.0-16.0); LYMPHOCYTES # (AUTO) 2.2 (1.0-3.2); LYMPHOCYTES % 26.8 % (18.0-39.1); MEAN CORPUSCULAR HGB CONC 32.9 g/dL (31-35); MONOCYTES # (AUTO) 0.5 (0.2-0.8); NEUTROPHILS # (AUTO) 5.2 (2.1-6.9); NEUTROPHILS % 63.6 % (38.7-80.0); PLATELET COUNT 212 x10e3/uL (140-360); RED BLOOD COUNT 4.42 x10e6/uL (3.6-5.1); RED CELL DISTRIBUTION WIDTH 13.2 % (11.7-14.4)
[2018-10-28 10:25] LABS: ANION GAP 11.8 mmol/L (8-16); BLOOD UREA NITROGEN 16 mg/dL (7-26); BUN/CREATININE RATIO 22 (6-25); CALCIUM 9.3 mg/dL (8.4-10.2); CARBON DIOXIDE 28 mmol/L (22-29); CHLORIDE 104 mmol/L (98-107); CREATININE, SERUM 0.74 mg/dL (0.57-1.11); EST GLOMERULAR FILTRATION RATE > 60 ML/MIN (60-); GLUCOSE 90 mg/dL (74-118); POTASSIUM 3.8 mmol/L (3.5-5.1); SODIUM 140 mmol/L (136-145)
[~2018-10-29] VITALS: Ht 160 cm; Wt 64.0 kg
[~2018-10-29 06:53] MED LIST changes: +ALENDRONATE SOD70 MG PO; +ATORVASTATIN CA20 MG PO; +CALCIUM CARBON500 MG PO; +CALTRATE PLUS1 EACH PO; +CENTRUM SILVER1 EAC3 PO; +CULTURELLE CAP1 EACH PO; +LABETALOL HCL200 MG PO
--- OUTSIDE RECORDS SUMMARY | 2018-10-29 07:14 | XMS REPORT | Clinical Summary ---
Author Author [facility] [employer] Address Unknown Phone Unavailable Care Team Providers Care Body Welder Name Role Phone Jarad Jacome MD PCP Allergies Comments Active Allergy Reactions Severity Noted Date Amoxicillin Hives 08/09/2018 Clarithromycin Hives 08/09/2018 Penicillins Hives 08/09/2018 Medications End Date Status Medication Sig Dispensed Refills Start Date Active labetalol (NORMODYNE) 100 TK 1 T PO BID 0 MG tablet 9 Active pantoprazole (PROTONIX) TK 1 T PO D 0 40 MG EC tablet 9 Active ondansetron ODT (ZOFRAN Take 1 tablet 10 tablet 0 ODT) 4 MG disintegrating (4 mg total) 9 tablet by mouth every 8 (eight) hours as needed for nausea for up to 10 doses. 08/16/2018 metroNIDAZOLE (FLAGYL) Take 1 tablet 21 tablet 0 500 MG tablet (500 mg 9 total) by mouth 3 (three) times a day for 7 days. 08/16/2018 ciprofloxacin (CIPRO) 500 Take 1 tablet 14 tablet 0 MG tablet (500 mg 9 total) by mouth 2 (two) times a day for 7 days. 09/08/2018 Lactobacillus rhamnosus Take 1 30 capsule 0 GG (CULTURELLE) 10 capsule by 9 billion cell capsule mouth daily for 30 days. Active Problems Not on file Encounters Care Team Description Date Type Specialty John Nuñez MD Colitis (Primary Dx) 08/09/2018 Emergency Emergency Medicine after 10/28/2017 Social History Date Tobacco Use Types Packs/Day Years Used Never Smoker Smokeless Tobacco: Never Used Alcohol Use Drinks/Week oz/Week Comments No Alcohol Habits Answer Date Recorded How often do you have a drink containing alcohol? Never 08/09/2018 How many drinks containing alcohol do you have on Not asked a typical day when you are drinking? How often do you have six or more drinks on one Not asked occasion? Sex Assigned at Date Recorded Not on file Industry Job Start Date Occupation Not on file Not on file Not on file Travel End Travel History Travel Start No recent travel history available. Last Filed Vital Signs Time Taken Vital Sign Reading 08/09/2018 5:45 PM CDT Blood Pressure 175/89 08/09/2018 5:45 PM CDT Pulse 65 08/09/2018 1:20 PM CDT Temperature 37.1 C (98.8 F) 08/09/2018 5:45 PM CDT Respiratory Rate 16 08/09/2018 5:45 PM CDT Oxygen Saturation 99% - Inhaled Oxygen - Concentration 08/09/2018 1:21 PM CDT Weight 65.3 kg (144 lb) 08/09/2018 1:21 PM CDT Height 160 cm (5' 3") 08/09/2018 1:21 PM CDT Body Mass Index 25.51 Plan of Treatment Health Maintenance Due Date Last Done Comments BREAST CANCER SCREENING 11/11/1997 COLONOSCOPY SCREENING 11/11/1997 SHINGLES VACCINES (#1) 11/11/1997 65+ PNEUMOCOCCAL VACCINE 11/11/2012 (1 of 2 - PCV13) INFLUENZA VACCINE 11/28/2018 Procedures Comments Procedure Name Priority Date/Time Associated Diagnosis CT ABDOMEN PELVIS W STAT 08/09/2018 CONTRAST 4:54 PM CDT URINALYSIS SCREEN AND STAT 08/09/2018 MICROSCOPY, WITH REFLEX 4:30 PM CDT TO CULTURE URINE CULTURE STAT 08/09/2018 4:30 PM CDT ESTIMATED GFR STAT 08/09/2018 3:05 PM CDT COMPREHENSIVE METABOLIC STAT 08/09/2018 PANEL 3:05 PM CDT HC COMPLETE BLD COUNT STAT 08/09/2018 W/AUTO DIFF 3:05 PM CDT after 10/28/2017 Results * CT Abdomen Pelvis W Contrast (08/09/2018 4:54 PM CDT) Specimen Narrative Performed At EXAMINATION:CT ABDOMEN PELVIS W CONTRAST [facility] CLINICAL HISTORY:Abd paingastroenteritis or colitis suspected TECHNIQUE: Multiple axial images of the abdomen and pelvis were obtained following intravenous administration of iodinated contrast. Sagittal and coronal computerized reformatted images were also obtained. CT imaging was performed with iterative reconstruction technique and/or automated exposure control to reduce radiation dose. COMPARISON:None. FINDINGS: 1.Small bleb in the posterior right costophrenic angle. Mild dependent atelectasis bilaterally. 2.Normal liver, gallbladder, adrenals, spleen, and pancreas. 3.Symmetric renal enhancement. Cortical irregularity in the inferior pole right kidney, likely sequelae of prior insult or intervention. 4.Normal stomach. Contrast passes through multiple loops of unremarkable appearing small bowel. 5.Colonic diverticulosis. Generalized colonic wall thickening extending from the transverse colon to sigmoid colon. More suggestive of colitis than diverticulitis. 6.Bladder is unremarkable. Hysterectomy. No free fluid. 7.Unremarkable abdominal and pelvic vasculature. 8.Generalized bone demineralization. IMPRESSION: Colonic diverticulosis. Generalized colonic wall thickening extending from the transverse colon to sigmoid colon. More suggestive of colitis than diverticulitis. [id number] Procedure Note [facility], Radiology Results Incoming - 08/09/2018 5:02 PM CDT EXAMINATION: CT ABDOMEN PELVIS W CONTRAST CLINICAL HISTORY: Abd pain gastroenteritis or colitis suspected TECHNIQUE: Multiple axial images of the abdomen and pelvis were obtained following intravenous administration of iodinated contrast. Sagittal and coronal computerized reformatted images were also obtained. CT imaging was performed with iterative reconstruction technique and/or automated exposure control to reduce radiation dose. COMPARISON: None. FINDINGS: 1. Small bleb in the posterior right costophrenic angle. Mild dependent atelectasis bilaterally. 2. Normal liver, gallbladder, adrenals, spleen, and pancreas. 3. Symmetric renal enhancement. Cortical irregularity in the inferior pole right kidney, likely sequelae of prior insult or intervention. 4. Normal stomach. Contrast passes through multiple loops of unremarkable appearing small bowel. 5. Colonic diverticulosis. Generalized colonic wall thickening extending from the transverse colon to sigmoid colon. More suggestive of colitis than diverticulitis. 6. Bladder is unremarkable. Hysterectomy. No free fluid. 7. Unremarkable abdominal and pelvic vasculature. 8. Generalized bone demineralization. IMPRESSION: Colonic diverticulosis. Generalized colonic wall thickening extending from the transverse colon to sigmoid colon. More suggestive of colitis than diverticulitis. [facility]-[id number] Performing Organization Address City/State/Zipcode Phone Number [address] [place] [address] * Urinalysis screen and microscopy, with reflex to culture (08/09/2018 4:30 PM CDT) Specimen site Clean catch [facility] Color, UA Yellow [facility] Appearance, UA Hazy [facility] Specific 1.024 1.001 - 1.035 [place] gravity, UA [facility] pH, UA 5.0 5.0 - 8.5 [facility] Protein, UA 1+ (A) Negative [facility] Glucose, UA Negative Negative [facility] Ketones, UA 1+ (A) Negative [facility] Bilirubin, UA Negative Negative [facility] Blood, UA Moderate (A) Negative [facility] Nitrite, UA Negative Negative [facility] Urobilinogen, <2.[address] [facility] Leukocyte Negative Negative [place] esterase, UA [facility] Epithelial 1 /HPF [place] cells, UA [facility] WBC, UA <1 0 - 4 /HPF [facility] RBC, UA 42 (H) 0 - 5 /HPF [facility] Bacteria, UA None seen None seen [facility] Yeast, UA None seen [facility] Yeast with None seen [place] [facility] Specimen Urine Performing Organization Address City/State/Zipcode Phone Number [facility] [place] [place] [address] [place] [address] PATHOLOGY AND GENOMIC MEDICINE [facility] [id number] [place] [address] * Urine culture (08/09/2018 4:30 PM CDT) Urine culture SEE COMMENTComment: [place] Bacteriuria screen negative. [facility] Specimen Performing Organization Address City/[facility]/Zipcode Phone Number [facility] [place] [address] [place] [address] PATHOLOGY AND GENOMIC MEDICINE [facility] [id number] [place] [address] * Estimated GFR (08/09/2018 3:05 PM CDT) Estimated GFR >=90 mL/min/1.73 m2 [place] Comment: [facility] rpretation G1 >=90 Normal or high G2 60-89Mildly decreased [id number] Mildly to moderately decreased [id number] Moderately to severely decreased G4 15-29Severely decreased G5 <15Kidney failure The eGFR was calculated using the Chronic Kidney Disease Epidemiology Collaboration (CKD-EPI) equation. Interpretation is based on recommendations of the National Kidney Foundation-Kidney Disease Outcomes Quality Initiative (NKF-KDOQI) published in 2014. Specimen Plasma specimen Performing Organization Address City/State/Zipcode Phone Number [facility] [place] [address] [address] [place] [id number] PATHOLOGY AND GENOMIC MEDICINE [facility] [id number] [place] [address] HOSPITAL * CBC with platelet and differential (08/09/2018 3:05 PM CDT) WBC 10.66 4.50 - 11.00 k/uL [facility] RBC 4.92 4.20 - 5.50 m/uL [facility] HGB 14.3 12.0 - 16.0 g/dL [facility] HCT 42.5 37.0 - 47.0 % [facility] MCV 86.4 82.0 - 100.0 fL [facility] MCH 29.1 27.0 - 34.0 pg [facility] MCHC 33.6 31.0 - 37.0 g/dL [facility] RDW - SD 40.6 37.0 - 55.0 fL [facility] MPV 11.8 8.8 - 13.2 fL [facility] Platelet count 218 150 - 400 k/uL [facility] Neutrophils 81.3 (H) 39.0 - 69.0 % [facility] Lymphocytes 12.1 (L) 25.0 - 45.0 % [facility] Monocytes 5.1 0.0 - 10.0 % [facility] Eosinophils 0.4 0.0 - 5.0 % [facility] Basophils 0.6 0.0 - 1.0 % [facility] Immature 0.5 0.0 - 1.0 % [place] granulocytes [facility] Specimen Blood Performing Organization Address City/State/Zipcode Phone Number [facility] [place] [address] [place] [address] PATHOLOGY AND GENOMIC MEDICINE [facility] [address] [place] [address] HOSPITAL * Comprehensive metabolic panel (08/09/2018 3:05 PM CDT) Sodium 142 135 - 148 mEq/L [facility] Potassium 4.4 3.5 - 5.0 mEq/L [facility] Chloride 103 99 - 109 mEq/L [facility] CO2 25 24 - 31 mEq/L [facility] Anion gap 14@ANIO 7 - 15 mEq/L [facility] BUN 13 8 - 24 mg/dL [facility] Creatinine 0.60 0.50 - 0.90 mg/dL [facility] Glucose 99 65 - 99 mg/dL [facility] Calcium 9.5 8.6 - 10.6 mg/dL [facility] Protein 8.2 6.3 - 8.2 g/dL [facility] Albumin 4.2 3.5 - 5.0 g/dL [facility] A/G ratio 1.0 0.7 - 3.8 [facility] Alkaline 94 30 - 115 U/L [place] phosphatase [facility] AST 29 15 - 46 U/L [facility] ALT 17 10 - 55 U/L [facility] Total bilirubin 0.5 0.2 - 1.2 mg/dL [facility] Specimen Plasma specimen Performing Organization Address City/State/Zipcode Phone Number [facility] [place] [address] [place] [address] PATHOLOGY AND GENOMIC MEDICINE [facility] [address] [place] [address] HOSPITAL after 10/28/2017 Insurance Type Payer Benefit Subscriber ID Effective Phone Address Plan / Dates Group HMO [employer] CIGNA xxxxxxxxxxx [id number] HEALTHSPRI resent NG O MCR ADV Advance Directives Patient has advance care planning documents on file. For more information, jayne cooper contact: [facility] [address] [place] [address]
--- OUTSIDE RECORDS SUMMARY | 2018-10-29 07:15 | XMS REPORT | Summary of Care ---
Author Author [facility] Organization [facility] Address Unknown Phone Unavailable Encounter DIOGO Bazan(TRACE) [id number] Date(s): 08/05/18 - 08/05/18 [facility] [address] [place] [address]- [phone] Discharge Disposition: Home or Self Care Attending Physician: Astrid Colmenares MD Referring Physician: Teto Mayorga MD Vital Signs Most recent to 1 oldest [Reference Range]: Height 160.02 cm (08/05/18 3:26 PM) Temperature Oral 98.1 DegF [96.4-99.1 DegF] (08/05/18 3:26 PM) Blood Pressure 181/85 mmHg [90-140/60-90 mmHg] *HI* (08/05/18 3:26 PM) Respiratory Rate 18 BRMIN [14-20 BRMIN] (08/05/18 3:26 PM) Peripheral Pulse 74 bpm Rate [60-100 bpm] (08/05/18 3:26 PM) Weight 65.909 kg (08/05/18 3:26 PM) Body Mass Index 25.74 m2 (08/05/18 3:26 PM) Problem List Condition Effective Dates Status Health Status Informant Diverticulitis(Confi Resolved rmed) Allergies, Adverse Reactions, Alerts Substance Reaction Severity Status amoxicillin Active penicillin Active Biaxin Active Levaquin Active Medications labetalol 200 mg oral tablet 200 mg=1 tab, PO, BID, 0 Refill(s) Start Date: 08/05/18 Status: Ordered pantoprazole 40 mg oral granule =1 Pack, PO, Daily, # 30 ea, 0 Refill(s) Start Date: 08/05/18 Status: Ordered Results No data available for this section Immunizations No data available for this section Procedures Procedure Date Related Diagnosis Body Site Status Laparoscopic partial nephrectomy 10/12/15 Completed Suspension of bladder 04/30/04 Completed Ovarian operation1 2004 Completed Hysterectomy 06/02/93 Completed 1Right ovarian benign tumor Social History Social History Type Response Substance Abuse Use: None. Type: Marijuana. Recreational Drug Route: Inhaled. Alcohol Current, Type Beer, Wine, Liquor. Frequency: 1-2 times per month. Previous treatment: None. Smoking Status Never smoker; Exposure to Tobacco Smoke None; Cigarette Smoking Last 365 Days No; Reg Smoking Cessation Counseling No entered on: 08/05/18 Assessment and Plan No data available for this section
--- OUTSIDE RECORDS SUMMARY | 2018-10-29 07:15 | XMS REPORT | Summary of Care ---
Author Author [facility] Organization [facility] Address Unknown Phone Unavailable Encounter DIOGO Bazan(TRACE) [id number] Date(s): 11/15/17 - 11/15/17 [facility] [address] [place] [address]- Encounter Diagnosis Nausea with vomiting, unspecified (Final) - 11/20/17 Left lower quadrant pain (Final) - Diverticulitis of intestine, part unspecified, without perforation or abscess wi thout bleeding (Final) - Diverticulosis of large intestine without perforation or abscess without bleedin g (Final) - Melena (Final) - Personal history of colonic polyps (Final) - Discharge Disposition: Home or Self Care Attending Physician: Micky Silva MD Referring Physician: Micky Silva MD Vital Signs No data available for this section Problem List Condition Effective Dates Status Health Status Informant Diverticulitis(Confi Resolved rmed) Allergies, Adverse Reactions, Alerts Substance Reaction Severity Status amoxicillin Active penicillin Active Biaxin Active Levaquin Active Medications No data available for this section Results No data available for this section [...] Reg Smoking Cessation Counseling No entered on: 09/04/16 Assessment and Plan No data available for this section
--- OUTSIDE RECORDS SUMMARY | 2018-10-29 07:15 | XMS REPORT | Summary of Care ---
Author Author [facility] Organization [facility] Address Unknown Phone Unavailable Encounter DIOGO Bazan(TRACE) [id number] Date(s): 10/02/16 - 10/02/16 [facility] [address] [place] [address]- [phone] Discharge Disposition: Home or Self Care Attending Physician: Sudhakar Dunlap MD Admitting Physician: Sudhakar Dunlap MD Referring Physician: Sudhakar Dunlap MD Vital Signs No data available for this section Problem List Condition Effective Dates Status Health Status Informant Diverticulitis(Confi Resolved rmed) Allergies, Adverse Reactions, Alerts Substance Reaction Severity Status amoxicillin Active Biaxin Active Levaquin Active penicillin Active Medications No data available for this section Results No data available for this section Immunizations No data available for this section Procedures Procedure Date Related Diagnosis Body Site Laparoscopic partial nephrectomy 10/12/15 Suspension of bladder 04/30/04 Ovarian operation1 2004 Hysterectomy 06/02/93 1Right ovarian benign tumor Social History Social History Type Response Substance Abuse Use: None. Type: Marijuana. Recreational Drug Route: Inhaled. Alcohol Current, Type Beer, Wine, Liquor. Frequency: 1-2 times per month. Previous treatment: None. Smoking Status Never smoker; Exposure to Tobacco Smoke None; Cigarette Smoking Last 365 Days No; Reg Smoking Cessation Counseling No Assessment and Plan No data available for this section
--- OUTSIDE RECORDS SUMMARY | 2018-10-29 07:15 | XMS REPORT | Summary of Care ---
Author Author [facility] Organization [facility] Address Unknown Phone Unavailable Encounter [facility] Hortensia(FIN) [id number] Date(s): 03/15/18 - 03/15/18 [facility] [address] [place] [address]- Encounter Diagnosis Pain in left lower leg (Final) - 03/20/18 Other specified soft tissue disorders (Final) - Discharge Disposition: Home or Self Care Attending Physician: Jarad Jacome MD Referring Physician: Jarad Jacome MD Vital Signs No data available for [...]
--- OUTSIDE RECORDS SUMMARY | 2018-10-29 07:15 | XMS REPORT | Summary of Care ---
Author Author [facility] Organization [facility] Address Unknown Phone Unavailable Encounter [facility] Encntr_alikeanu(TRACE) [id number] Date(s): 07/08/15 - 07/08/15 [facility] [address] [place] [address]- Discharge Disposition: Home Attending Physician: Sudhakar Dunlap MD Admitting Physician: Sudhakar Dunlap MD Referring Physician: Sudhakar Dunlap MD Vital Signs No data available for this section Problem List No data available for this section Allergies, Adverse Reactions, Alerts Substance Reaction Severity Status Biaxin Active penicillin Active Medications No data available for this section Results No data available for this section Immunizations No data available for this section Procedures No data available for this section Social History No data available for this section Assessment and Plan No data available for this section
--- OUTSIDE RECORDS SUMMARY | 2018-10-29 07:15 | XMS REPORT | Summary of Care ---
Author Author [facility] Organization [facility] Address Unknown Phone Unavailable Encounter DIOGO Bazan(TRACE) [id number] Date(s): 08/30/15 - 08/30/15 [facility] [address] [place] [address]- Discharge Disposition: Home Attending Physician: Sudhakar Dunlap MD Referring Physician: Sudhakar Dunlap MD Vital Signs No data available for this section Problem List No data available for this section Allergies, Adverse Reactions, Alerts Substance Reaction Severity Status Biaxin Active penicillin Active Medications Omnipaque 300 100 mL, Route: IV, Drug Form: NAIDA URIARTE, Start date: 08/30/15 11:00:00 CDT, D uration: 1 doses or times Notes: (Same as:Omnipaque 300).WASTE: F/P - Black; E - Municipal Trash Bin Start Date: 08/30/15 Stop Date: 08/30/15 Status: Completed Results CHEM PANEL Most recent to 1 oldest [Reference Range]: eGFR 90 mL/min/1.73m2 1 *NA* (08/30/15 10:09 AM) POC Creatinine 0.7 mg/dL [0.5-1.4 mg/dL] (08/30/15 10:09 AM) 1Result Comment: The eGFR is calculated using the CKD-EPI formula. In most young, healthy individuals the eGFR will be >90 mL/min/1.73m2. The eGFR declines with age. An eGFR of 60-89 may be normal in some populations, particularly the elderly, for whom the CKD-EPI formula has not been extensively validated. Use of the eGFR is not recommended in the following populations: Individuals with unstable creatinine concentrations, including patients and those with serious co-morbid conditions. Patients with extremes in muscle mass or diet. The data above are obtained from the National Kidney Disease Education Program ( NKDEP) which additionally recommends that when the eGFR is used in patients with extremes of body mass index for purposes of drug dosing, the eGFR should be mul tiplied by the estimated BMI. Immunizations No data available for this section Procedures No data available for this section Social History No data available for this section Assessment and Plan No data available for this section
--- OUTSIDE RECORDS SUMMARY | 2018-10-29 07:15 | XMS REPORT | Continuity of Care Document ---
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 Active 10/30/2017 [facility] C64.1 Active 09/08/2016 [facility] MALIGNANT NEOPLASM OF RIGHT KIDNEY Active 02/23/2016 [facility] MALIGNANT NEOPLASM Active 09/13/2015 [facility] MALIGNANT NEOPLASM RIGHT KIDNEY EXCEPT R Active 09/13/2015 [facility] N28.89 Active 08/02/2015 [facility] N28.89 RIGHT RENAL MASS Active 08/02/2015 [facility] R35.0 FREQUENCY OF MICTURITION Active 07/01/2015 [facility] Left lower quadrant pain 06/04/2018 [facility] Diverticulitis of intestine, part unspecified, without perforation or abscess without bleeding 06/04/2018 [facility] Diverticulosis of large intestine without perforation or abscess without bleeding 06/04/2018 [facility] Melena 06/04/2018 [facility] Personal history of colonic polyps 06/04/2018 [facility] Other specified soft tissue disorders 10/03/2018 [id number] Diverticulitis Resolved Problem 10/03/2018 [facility][id number],[facility] Diverticulitis of sigmoid colon Active Problem 08/25/2017 [facility] Failure of outpatient treatment Active Problem 08/25/2017 [facility] FREQUENCY OF MICTURITION Active [facility] OTHER SPECIFIED DISORDERS OF KIDNEY AND Active [facility] MALIGNANT NEOPLASM OF RIGHT KIDNEY, EXCE Active [facility] Medications Medication Details Route Status Patient Instructions Ordering Provider Order Date Source pantoprazole 40 mg oral granule =1 Pack, PO, Daily, # 30 ea, 0 Refill(s) Active 08/05/2018 [facility] labetalol 200 mg oral tablet 200 mg=1 tab, PO, BID, 0 Refill(s) Active 08/05/2018 [facility] Labetalol Hcl 100 Mg Tablet Every 12 Hours Active [facility] 08/25/2017 [facility] Levofloxacin (Levaquin) 500 Mg Tablet Daily Active [facility] 08/25/2017 [facility] Metronidazole (Flagyl) 500 Mg Tablet Three Times A Day Active [facility] 08/25/2017 [facility] Ondansetron (Zofran Odt) 4 Mg Tab.rapdis Q4-6H Prn Active [facility] 08/25/2017 [facility] Pantoprazole Sodium (Protonix) 40 Mg Tablet. Daily Active [facility] 08/25/2017 [facility] Sennosides (Senna Lax) 8.6 Mg Tablet Daily Active [facility] 08/25/2017 [facility] Acetaminophen 325 MG / Hydrocodone Bitartrate 7.5 MG Oral Tablet [Fortine 7.5/325] 1 tab, PO, Q6H, PRN Headache 4-6, # 40 tab, 0 Refill(s) Active 10/15/2015 [facility] Docusate Sodium 100 MG Oral Capsule [Colace] 100 mg=1 cap, PO, BID, PRN Constipation, # 60 cap, 0 Refill(s) Active 10/15/2015 [facility] Trazodone 25 mg, 0.5 tab, Route: PO, Drug form: TAB, Bedtime, Dosing Weight 65, kg, PRN Sleep, Start date: 10/14/15 17:45:00 CDT, Duration: 30 day, Stop date: 11/13/15 17:44:00 CDT, ..Notes: (Same As: Nisreen) No Longer Active 10/14/2015 [facility] Acetaminophen 325 MG / Hydrocodone Bitartrate 7.5 MG Oral Tablet [Fortine 7.5/325] 2 tab, Route: PO, Drug Form: TAB, Dosing Weight 65, kg, Q4H, PRN Pain Score 7-10, Start date: 10/14/15 10:19:00 CDT, Duration: 30 day, Stop date: 11/13/15 10:18:00 CDTNotes: Same as Fortine 325-7.5mg Do not exceed 4gm/day of acetaminophen. No Longer Active 10/14/2015 [facility] docusate sodium 100 mg oral capsule 100 mg, 1 cap, Route: PO, Drug form: CAP, BID, Dosing Weight 66.273, kg, Start date: 10/12/15 17:00:00 CDT, Duration: 30 day, Stop date: 11/11/15 9:00:00 CDTNotes: (Same as: Colace) (Do Not Crush) No Longer Active 10/12/2015 [facility] Hydromorphone 0.5 mg, 0.25 mL, Route: IVP, Drug form: INJ, Q5Min, Dosing Weight 66.273, kg, PRN Pain Score 7-10, Start date: 10/12/15 11:56:00 CDT, Duration: 4 doses or times, Stop date: 10/12/15 20:00:00 CDTNotes: (Same as: Dilaudid) Inactive 10/12/2015 [facility] Meperidine 12.5 mg, 0.5 mL, Route: IVP, Drug form: INJ, Q30Min, Dosing Weight 66.273, kg, PRN Other -See Comment, For shivering, Start date: 10/12/15 11:56:00 CDT, Duration: 2 doses or times, Stop date: 10/12/15 2 0:00:00 CDTNotes: (Same as: Demerol) "Use Precaution in Elderly, Seizure disorders, and Renal impairment" Inactive 10/12/2015 [facility] Morphine 4 mg, 1 mL, Route: IVP, Drug form: INJ, Q5Min, Dosing Weight 66.273, kg, PRN Pain Score 7-10, Start date: 10/12/15 11:56:00 CDT, Duration: 3 doses or times, Stop date: 10/12/15 20:00:00 CDTNotes: (Same as:MORPhine Sulfate) Inactive 10/12/2015 [facility] Ondansetron 4 mg, 2 mL, Route: IVP, Drug form: INJ, ONCE, Dosing Weight 66.273, kg, PRN Nausea & Vomiting, Start date: 10/12/15 11:56:00 CDTNotes: (Same as: Zoadilene) MEDICATION WASTE Product Size: 4 mg Product Wasted: ___ mg No Longer Active 10/12/2015 [facility] Naloxone 0.4 mg, 1 mL, Route: IVP, Drug form: INJ, Q2MIN, Dosing Weight 66.273, kg, PRN Narcotic Reversal, Start date: 10/12/15 11:56:00 CDT, Duration: 8 doses or times, Stop date: 10/12/15 20:00:00 CDTNotes: Same as Narcan Inactive 10/12/2015 [facility] Flumazenil 0.2 mg, 2 mL, Route: IVP, Drug form: INJ, PRN, Dosing Weight 66.273, kg, PRN Benzodiazepine Reversal, Initial dose, Start date: 10/12/15 11:56:00 CDT, Stop date: 10/12/15 20:00:00 CDTNotes: (Same as: Romazicon) Inactive 10/12/2015 [facility] Fentanyl 25 microgram, 0.5 mL, Route: IVP, Drug form: INJ, Q5Min, Dosing Weight 66.273, kg, PRN Pain Score 4-6, Start date: 10/12/15 11:56:00 CDT, Duration: 4 doses or times, Stop date: 10/12/15 20:00:00 CDTNotes: (Same as: Sublimaze) Preservative free. Inactive 10/12/2015 [facility] hydromorphone (ANES) Route: IV, Drug form: INJ, ONCE, Stop date: 10/12/15 11:33:00 CDT Inactive 10/12/2015 [facility] Morphine 30 mg, 30 mL, Route: IV, Initial Loading Dose: 2 mg, [employer] Dose: 1 mg, [employer] Lockout: 10 minutes, Continuous Basal Rate: 0 mg, 4 Hour Limit (In MG): 30, Drug Form: INJ, Continuous, Start date: 10/12/15 11: 30:00 CDT, Duration: 30 day, Stop date: 11/11/15...Notes: Dose: Delay: Basal rate: 4hr limit: (Same as:Maryjane-Chase) No Longer Active 10/12/2015 [facility] Naloxone 0.04 mg, 0.1 mL, Route: IVP, Drug form: INJ, Q2MIN, Dosing Weight 66.273, kg, PRN Narcotic Reversal, Start date: 10/12/15 11:17:00 CDT, Duration: 30 day, Stop date: 11/11/15 11:16:00 CDTNotes: Same as Narcan No Longer Active 10/12/2015 [facility] Saline Flush 0.9% 10 ml, Route: IVP, Drug Form: INJ, Dosing Weight 66.273, kg, PRN, PRN Line Flush, Start date: 10/12/15 11:17:00 CDT, Duration: 30 day, Stop date: 11/11/15 11:16:00 CDTNotes: Same as: BD Posiflush Sterile No Longer Active 10/12/2015 [facility] Sodium Chloride 0.0769 MEQ/ML Injectable Solution 1,000 mL, Rate: 30 ml/hr, Infuse over: 33.3 hr, Route: IV, Dosing Weight 66.273 kg, Total Volume: 1,000, Start date: 10/12/15 11:17:00 CDT, Stop date: 11/11/15 11:16:00 CDT No Longer Active 10/12/2015 [facility] Ondansetron 4 mg, 2 mL, Route: IVP, Drug form: INJ, Q6H, Dosing Weight 66.273, kg, PRN Nausea & Vomiting, Start date: 10/12/15 11:17:00 CDT, Duration: 30 day, Stop date: 11/11/15 11:16:00 CDTNotes: (Same as: Zofran) MEDICATION WASTE Product Size: 4 mg Product Wasted: ___ mg No Longer Active 10/12/2015 [facility] glycopyrrolate (ANES) Route: IV, Drug form: INJ, ONCE, Stop date: 10/12/15 11:14:00 CDT Inactive 10/12/2015 [facility] dexamethasone (ANES) Route: IV, Drug form: INJ, ONCE, Stop date: 10/12/15 11:14:00 CDT Inactive 10/12/2015 [facility] acetaminophen (ANES) Route: IV, Drug form: INJ, ONCE, Stop date: 10/12/15 11:14:00 CDT Inactive 10/12/2015 [facility] neostigmine (ANES) Route: IV, Drug form: INJ, ONCE, Stop date: 10/12/15 11:14:00 CDT Inactive 10/12/2015 [facility] ondansetron (ANES) Route: IV, Drug form: INJ, ONCE, Stop date: 10/12/15 11:14:00 CDT Inactive 10/12/2015 [facility] levofloxacin (ANES) Route: IV, Drug form: INJ, ONCE, Stop date: 10/12/15 10:08:00 CDT Inactive 10/12/2015 [facility] lidocaine (ANES) Route: IV, Drug form: INJ, ONCE, Stop date: 10/12/15 9:57:00 CDT Inactive 10/12/2015 [facility] fentaNYL (ANES) Route: IV, Drug form: INJ, ONCE, Stop date: 10/12/15 9:57:00 CDT Inactive 10/12/2015 [facility] rocuronium (ANES) Route: IV, Drug form: INJ, ONCE, Stop date: 10/12/15 9:57:00 CDT Inactive 10/12/2015 [facility] propofol (ANES) Route: IV, Drug form: INJ, ONCE, Stop date: 10/12/15 9:57:00 CDT Inactive 10/12/2015 [facility] midazolam (ANES) Route: IV, Drug form: SOLN, ONCE, Stop date: 10/12/15 9:36:00 CDT Inactive 10/12/2015 [facility] Hextend (ANES) (ANES) Route: IV, Drug Form: INJ, Start date: 10/12/15 9:00:00 CDT, Stop date: 10/12/15 10:00:00 CDT Inactive 10/12/2015 [facility] LR 1000 mL INJ (ANES) Route: IV, Total Volume: 1,000, Start date: 10/12/15 8:43:00 CDT, Stop date: 10/12/15 9:43:00 CDT Inactive 10/12/2015 [facility] Calcium Chloride 0.0014 MEQ/ML / Potassium Chloride 0.004 MEQ/ML / Sodium Chloride 0.103 MEQ/ML / Sodium Lactate 0.028 MEQ/ML Injectable Solution 1,000 mL, Rate: 25 ml/hr, Infuse over: 40 hr, Route: IV, Dosing Weight 66.273 kg, Total Volume: 1,000, Start date: 10/12/15 7:53:00 CDT, Duration: 30 day, Stop date: 11/11/15 7:52:00 CDT No Longer Active 10/12/2015 [facility] Omnipaque 300 100 mL, Route: IV, Drug Form: SOLN, ONCALL, Start date: 08/30/15 11:00:00 CDT, Duration: 1 doses or timesNotes: (Same as:Omnipaque 300). WASTE: F/P - Black; E - Municipal Trash Bin Inactive 08/30/2015 [facility] Allergies, Adverse Reactions, Alerts Substance Category Reaction Severity Reaction type Status Date Reported Comments Source Penicillin Unknown Allergy to Substance Active 08/18/2017 [facility] Sulfa (Sulfonamide Antibiotics) Unknown Allergy to Substance Active 08/18/2017 [facility] Clarithromycin Unknown Allergy to Substance Active 08/18/2017 [facility] Biaxin Assertion Drug allergy Active [id number] penicillin Assertion Drug allergy Active [id number] amoxicillin Assertion Drug allergy Active [id number] Levaquin Assertion Drug allergy Active [id number] Immunizations No Data Provided for This Section Results Order Name Results Value Reference Range Date Interpretation Comments Source Automated blood basophil count (count/volume) Automated blood basophil count (count/volume) 0.0 0.0 - 0.1 08/23/2017 [facility] Automated blood basophil count as percentage of total leukocytes Automated blood basophil count as percentage of total leukocytes 0.5 0.0 - 1.0 08/23/2017 [facility] Automated blood eosinophil count Automated blood eosinophil count 0.3 0.0 - 0.4 08/23/2017 [facility] Automated blood eosinophil count as percentage of total leukocytes Automated blood eosinophil count as percentage of total leukocytes 4.3 0.0 - 6.0 08/23/2017 [facility] Automated blood hematocrit (volume fraction) Automated blood hematocrit (volume fraction) 33.1 34.2 - 44.1 08/23/2017 [facility] Automated blood lymphocyte count as percentage ot total leukocytes Automated blood lymphocyte count as percentage ot total leukocytes 28.3 18.0 - 39.1 08/23/2017 [facility] Automated blood monocyte count as percentage of total leukocytes Automated blood monocyte count as percentage of total leukocytes 8.3 4.4 - 11.3 08/23/2017 [facility] Automated blood neutrophil count Automated blood neutrophil count 3.3 2.1 - 6.9 08/23/2017 [facility] Automated blood platelet count (count/volume) Automated blood platelet count (count/volume) 196 140 - 360 08/23/2017 [facility] Automated blood segmented neutrophil count as percentage of total leukocytes Automated blood segmented neutrophil count as percentage of total leukocytes 58.1 38.7 - 80.0 08/23/2017 [facility] Automated erythrocyte mean corpuscular hemoglobin (mass per erythrocyte) Automated erythrocyte mean corpuscular hemoglobin (mass per erythrocyte) 29.4 28 - 32 08/23/2017 [facility] Automated erythrocyte mean corpuscular hemoglobin concentration measurement (mass/volume) Automated erythrocyte mean corpuscular hemoglobin concentration measurement (mass/volume) 34.1 31 - 35 08/23/2017 [facility] Automated erythrocyte mean corpuscular volume Automated erythrocyte mean corpuscular volume 86.2 81 - 99 08/23/2017 [facility] Blood erythrocytes automated count (number/volume) Blood erythrocytes automated count (number/volume) 3.84 3.6 - 5.1 08/23/2017 [facility] Blood hemoglobin measurement (moles/volume) Blood hemoglobin measurement (moles/volume) 11.3 12.0 - 16.0 08/23/2017 [facility] Blood leukocytes automated count (number/volume) Blood leukocytes automated count (number/volume) 5.75 4.8 - 10.8 08/23/2017 [facility] Blood lymphocytes count (number/volume) Blood lymphocytes count (number/volume) 1.6 1.0 - 3.2 08/23/2017 [facility] Blood monocytes automated count (number/volume) Blood monocytes automated count (number/volume) 0.5 0.2 - 0.8 08/23/2017 [facility] Red Cell Distribution Width 13.5 11.7 - 14.4 08/23/2017 [facility] IM GRANULOCYTES % 0.5 0.0 - 1.0 08/23/2017 [facility] Absolute Immature Granulocyte (auto 0.03 0 - 0.1 08/23/2017 [facility] Estimated glomerular filtration rate (GFR) determination Estimated glomerular filtration rate (GFR) determination >60 60 08/20/2017 [facility] Glucose measurement Glucose measurement 71 74 - 118 08/20/2017 [facility] Plasma globulin measurement (mass/volume) Plasma globulin measurement (mass/volume) 3.4 2.3 - 3.5 08/20/2017 [facility] Serum or plasma alanine aminotransferase measurement (enzymatic activity/volume) Serum or plasma alanine aminotransferase measurement (enzymatic activity/volume) 12 0 - 55 08/20/2017 [facility] Serum or plasma albumin measurement (mass/volume) Serum or plasma albumin measurement (mass/volume) 3.0 3.5 - 5.0 08/20/2017 [facility] Serum or plasma albumin/globulin mass ratio Serum or plasma albumin/globulin mass ratio 0.9 0.8 - 2.0 08/20/2017 [facility] Serum or plasma alkaline phosphatase measurement (enzymatic activity/volume) Serum or plasma alkaline phosphatase measurement (enzymatic activity/volume) 74 40 - 150 08/20/2017 [facility] Serum or plasma anion gap Serum or plasma anion gap 12.5 8 - 16 08/20/2017 [facility] Serum or plasma calcium measurement (mass/volume) Serum or plasma calcium measurement (mass/volume) 8.7 8.4 - 10.2 08/20/2017 [facility] Serum or plasma carbon dioxide, total measurement (moles/volume) Serum or plasma carbon dioxide, total measurement (moles/volume) 23 22 - 29 08/20/2017 [facility] Serum or plasma chloride measurement (moles/volume) Serum or plasma chloride measurement (moles/volume) 107 98 - 107 08/20/2017 [facility] Serum or plasma creatinine measurement (mass/volume) Serum or plasma creatinine measurement (mass/volume) 0.67 0.57 - 1.11 08/20/2017 [facility] Serum or plasma potassium measurement (moles/volume) Serum or plasma potassium measurement (moles/volume) 3.5 3.5 - 5.1 08/20/2017 [facility] Serum or plasma protein measurement (mass/volume) Serum or plasma protein measurement (mass/volume) 6.4 6.5 - 8.1 08/20/2017 [facility] Serum or plasma sodium measurement (moles/volume) Serum or plasma sodium measurement (moles/volume) 139 136 - 145 08/20/2017 [facility] Serum or plasma total bilirubin measurement (mass/volume) Serum or plasma total bilirubin measurement (mass/volume) 0.8 0.2 - 1.2 08/20/2017 [facility] Serum or plasma urea nitrogen measurement (mass/volume) Serum or plasma urea nitrogen measurement (mass/volume) 7 7 - 26 08/20/2017 [facility] Serum or plasma urea nitrogen/creatinine mass ratio Serum or plasma urea nitrogen/creatinine mass ratio 10 6 - 25 08/20/2017 [facility] Aspartate Amino Transf (AST/SGOT) 18 5 - 34 08/20/2017 [facility] Activated partial thromboplastin time (aPTT) in platelet poor plasma bycoagulation assay Activated partial thromboplastin time (aPTT) in platelet poor plasma bycoagulation assay 26.3 23.8 - 35.5 08/18/2017 [facility] Automated urine sediment leukocyte count by microscopy (number/high power field) Automated urine sediment leukocyte count by microscopy (number/high power field) <10 0 - 5 08/18/2017 [facility] Bacteria detection in urine sediment by light microscopy Bacteria detection in urine sediment by light microscopy NONE NONE 08/18/2017 [facility] Epithelial cells detection in urine sediment by light microscopy Epithelial cells detection in urine sediment by light microscopy FEW NONE 08/18/2017 [facility] Erythrocytes detection in urine sediment by light microscopy Erythrocytes detection in urine sediment by light microscopy <5 0 - 5 08/18/2017 [facility] INR in Platelet poor plasma by Coagulation assay INR in Platelet poor plasma by Coagulation assay 1.08 08/18/2017 [facility] Prothrombin time (PT) in platelet poor plasma by coagulation assay Prothrombin time (PT) in platelet poor plasma by coagulation assay 13.2 11.9 - 14.5 08/18/2017 [facility] Serum or plasma amylase measurement (enzymatic activity/volume) Serum or plasma amylase measurement (enzymatic activity/volume) 116 25 - 125 08/18/2017 [facility] Serum or plasma cholesterol in HDL measurement (mass/volume) Serum or plasma cholesterol in HDL measurement (mass/volume) 56 40 - 60 08/18/2017 [facility] Serum or plasma cholesterol in LDL measurement (mass/volume) Serum or plasma cholesterol in LDL measurement (mass/volume) 90 60 - 130 08/18/2017 [facility] Serum or plasma cholesterol measurement (mass/volume) Serum or plasma cholesterol measurement (mass/volume) 166 0 - 199 08/18/2017 [facility] Serum or plasma creatine kinase MB measurement (mass/volume) Serum or plasma creatine kinase MB measurement (mass/volume) 1.70 0 - 5.0 08/18/2017 [facility] Serum or plasma creatine kinase measurement (enzymatic activity/volume) Serum or plasma creatine kinase measurement (enzymatic activity/volume) 84 29 - 168 08/18/2017 [facility] Serum or plasma lipase measurement (enzymatic activity/volume) Serum or plasma lipase measurement (enzymatic activity/volume) 43 8 - 78 08/18/2017 [facility] Serum or plasma magnesium measurement (mass/volume) Serum or plasma magnesium measurement (mass/volume) 2.1 1.3 - 2.1 08/18/2017 [facility] Serum or plasma total cholesterol/cholesterol in HDL mass ratio Serum or plasma total cholesterol/cholesterol in HDL mass ratio 3.0 3.0 - 3.6 08/18/2017 [facility] Serum or plasma triglyceride measurement (mass/volume) Serum or plasma triglyceride measurement (mass/volume) 102 0 - 149 08/18/2017 [facility] Specific gravity of Urine by Test strip Specific gravity of Urine by Test strip 1.020 1.010 - 1.025 08/18/2017 [facility] Troponin I measurement by highly sensitive enzyme immunoassay Troponin I measurement by highly sensitive enzyme immunoassay 0.003 0 - 0.300 08/18/2017 [facility] Urine clarity Urine clarity CLEAR CLEAR 08/18/2017 [facility] Urine color determination Urine color determination YELLOW YELLOW 08/18/2017 [facility] Urine erythrocytes detection Urine erythrocytes detection TRACE NEGATIVE 08/18/2017 [facility] Urine glucose detection Urine glucose detection NEGATIVE NEGATIVE 08/18/2017 [facility] Urine ketones detection by automated test strip Urine ketones detection by automated test strip NEGATIVE NEGATIVE 08/18/2017 [facility] Urine leukocyte esterase detection by dipstick Urine leukocyte esterase detection by dipstick NEGATIVE NEGATIVE 08/18/2017 [facility] Urine nitrite detection Urine nitrite detection NEGATIVE NEGATIVE 08/18/2017 [facility] Urine pH measurement by automated test strip Urine pH measurement by automated test strip 7 5 - 7 08/18/2017 [facility] Urine protein measurement by test strip (mass/volume) Urine protein measurement by test strip (mass/volume) TRACE NEGATIVE 08/18/2017 [facility] Urine total bilirubin measurement (mass/volume) Urine total bilirubin measurement (mass/volume) NEGATIVE NEGATIVE 08/18/2017 [facility] Urine urobilinogen measurement by test strip (mass/volume) Urine urobilinogen measurement by test strip (mass/volume) 0.2 0.2 - 1 08/18/2017 [facility] Hemoglobin A1c Percent 5.5 4.0 - 7.0 08/18/2017 [facility] Lactic Acid Level 12.1 4.5 - 19.8 08/18/2017 [facility] ELECTROLYTES AGAP 10.1 10.0 - 20.0 10/13/2015 [facility] ELECTROLYTES eGFR 97 10/13/2015 Result Comment: The eGFR is calculated using the [...] from the National Kidney Disease Education Program (NKDEP) which additionally recommends that when the eGFR is used in patients with extremes of body mass index for purposes of drug dosing, the eGFR should be multiplied by the estimated BMI. [facility] ELECTROLYTES Calcium Lvl 7.9 8.5 - 10.5 10/13/2015 [facility] ELECTROLYTES Sodium Lvl 137 135 - 145 10/13/2015 [facility] ELECTROLYTES Potassium Lvl 5.1 3.5 - 5.1 10/13/2015 [facility] ELECTROLYTES Chloride Lvl 103 95 - 109 10/13/2015 [facility] ELECTROLYTES CO2 29 24 - 32 10/13/2015 [facility] ELECTROLYTES BUN 11 7 - 22 10/13/2015 [facility] ELECTROLYTES Glucose Lvl 99 70 - 99 10/13/2015 [facility] ELECTROLYTES Creatinine Lvl 0.56 0.50 - 1.40 10/13/2015 [facility] HEMATOLOGY Monocytes # 1.0 0.0 - 0.8 10/13/2015 [facility] HEMATOLOGY Basophils 0.1 0.0 - 1.0 10/13/2015 [facility] HEMATOLOGY Monocytes 6.8 2.0 - 12.0 10/13/2015 [facility] HEMATOLOGY Lymphocytes # 1.0 1.0 - 5.5 10/13/2015 [facility] HEMATOLOGY Segs-Bands # 12.1 1.5 - 8.1 10/13/2015 [facility] HEMATOLOGY Lymphocytes 7.3 20.0 - 40.0 10/13/2015 [facility] HEMATOLOGY Segs 85.8 45.0 - 75.0 10/13/2015 [facility] HEMATOLOGY RDW 14.5 11.5 - 14.5 10/13/2015 [facility] HEMATOLOGY MPV 10.1 7.4 - 10.4 10/13/2015 [facility] HEMATOLOGY Platelet 179 133 - 450 10/13/2015 [facility] HEMATOLOGY MCHC 32.2 32.0 - 36.0 10/13/2015 [facility] HEMATOLOGY MCH 28.4 27.0 - 31.0 10/13/2015 [facility] HEMATOLOGY Hgb 11.8 12.0 - 16.0 10/13/2015 [facility] HEMATOLOGY MCV 88.2 80.0 - 98.0 10/13/2015 [facility] HEMATOLOGY Hct 36.6 36.0 - 48.0 10/13/2015 [facility] HEMATOLOGY RBC 4.16 4.20 - 5.40 10/13/2015 [facility] HEMATOLOGY WBC 14.1 3.7 - 10.4 10/13/2015 [facility] BLOOD BANK RESULTS ABO/Rh A POS 10/11/2015 [facility] BLOOD BANK RESULTS Antibody Scrn Negative (10/11/15 9:35 AM) 10/11/2015 [facility] BLOOD BANK RESULTS RBC product Product available (10/11/15 9:34 AM) 10/11/2015 [facility] ELECTROLYTES AGAP 8.1 10.0 - 20.0 10/06/2015 [facility] ELECTROLYTES eGFR 96 10/06/2015 Result Comment: The eGFR is calculated using the [...] from the National Kidney Disease Education Program (NKDEP) which additionally recommends that when the eGFR is used in patients with extremes of body mass index for purposes of drug dosing, the eGFR should be multiplied by the estimated BMI. [facility] ELECTROLYTES Sodium Lvl 141 135 - 145 10/06/2015 [facility] ELECTROLYTES Chloride Lvl 107 95 - 109 10/06/2015 [facility] ELECTROLYTES Calcium Lvl 8.6 8.5 - 10.5 10/06/2015 [facility] ELECTROLYTES Potassium Lvl 4.1 3.5 - 5.1 10/06/2015 [facility] ELECTROLYTES CO2 30 24 - 32 10/06/2015 [facility] ELECTROLYTES Glucose Lvl 88 70 - 99 10/06/2015 [facility] ELECTROLYTES Creatinine Lvl 0.57 0.50 - 1.40 10/06/2015 [facility] ELECTROLYTES BUN 15 7 - 22 10/06/2015 [facility] HEMATOLOGY Hct 39.3 36.0 - 48.0 10/06/2015 [facility] HEMATOLOGY Hgb 12.7 12.0 - 16.0 10/06/2015 [facility] CHEM PANEL POC Creatinine 0.7 0.5 - 1.4 08/30/2015 [facility] CHEM PANEL eGFR 90 08/30/2015 Result Comment: The eGFR is calculated using the [...] from the National Kidney Disease Education Program (NKDEP) which additionally recommends that when the eGFR is used in patients with extremes of body mass index for purposes of drug dosing, the eGFR should be multiplied by the estimated BMI. [facility] Bacterial urine culture Bacterial urine culture Urine Culture [facility] Pathology Reports No Data Provided for This Section Diagnostic Reports Report Value Date Source Ext Lower Venous Doppler Bilat US Clinical Indication: - M79.662 Pain in left lower leg. Comparison: None. TECHNIQUE: Sonographic evaluation of the bilateral lower extremity veins was performed using high resolution B-mode imaging, along with pulse and color Doppler imaging. FINDINGS: Right lower extremity: The common femoral vein, superficial femoral vein, popliteal vein and visualized posterior tibial/calf veins are patent. There is no echogenic debris to suggest deep venous thrombosis. The saphenofemoral junction is unremarkable. Left lower extremity: The common femoral vein, superficial femoral vein, popliteal vein and visualized posterior tibial/calf veins are patent. There is no echogenic debris to suggest deep venous thrombosis. The saphenofemoral junction is unremarkable. IMPRESSION: 1. No deep venous thrombosis of bilateral lower extremities. REFERENCE: Deep veins include: common femoral vein, superficial femoral vein (also can be referred to as 'femoral vein'), popliteal vein, posterior tibial vein Superficial veins include: greater and lesser saphenous veins SL: [id number] 03/15/2018 [facility] Barium enema air contrast DX Barium enema air contrast DX COMPARISON: CT abdomen pelvis 10/02/2016 CLINICAL HISTORY: - R11.2 Nausea with vomiting, unspecified/ R10.32 Left lower quadrant pain/Z86.010 Personal history of colonic polyps/K57.92 Diverticulitis of intestine, part unspecified, without perforation or abscess without bleeding/ K92.1 Melena. Fluoro Time and Dose: 1 MIN 10 SEC / 49.06 [facility] TECHNIQUE: Air and barium were administered into the rectum in a retrograde fashion. Fluoroscopic and overhead images of the colon were subsequently performed. 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 No large contour deforming mass is visible. No pathologic calcifications are evident. BARIUM ENEMA: Evaluation is mildly limited secondary to redundancy of sigmoid colon. There are numerous diverticula are identified in the sigmoid colon and distal descending colon. Remainder the colon demonstrates scattered colonic diverticula as well. No leakage of contrast to suggest diverticulitis. No obstructing mass lesion or stricture is visualized. Haustral pattern of the colon is within normal limits. No significant colonic wall thickening. Presacral space is within normal limits. IMPRESSION: Extensive colonic diverticulosis with diverticula most prevalent in the distal descending colon and sigmoid colon. [id number] 11/15/2017 [facility] Abdomen/Pelvis w IV contrast CT Clinical Indication:70 years Female C64.1 Malignant neoplasm of right kidney, except renal pelvis, tumor removed last yr, f/u, diverticulitis episode 2wks ago Comparison: CT abdomen and pelvis 08/30/2015 TECHNIQUE: Helical imaging was performed diaphragm through the symphysis with multiplanar reformations obtained. IV CONTRAST: 100 ML Omnipaque GI CONTRAST: Redicat DLP: 1735 mGy-cm FINDINGS: Lower thorax: Right lower lobe bronchiectasis is unchanged. Hepatobiliary: No focal hepatic lesion. No biliary ductal dilatation. Pancreas: No focal mass or ductal dilatation. Spleen: No splenomegaly. Adrenals: No nodules. Kidneys: Patient has undergone resection of the previously described exophytic right lower pole mass. Multiple nodular enhancing foci in the resection bed are noted. Pelvic organs: The uterus is surgically absent. Ovaries not seen. Bladder unremarkable. Peritoneum/Retroperitoneum: No free air or free fluid. Lymph nodes: No lymphadenopathy. Vessels: No acute vascular abnormalities. Aorta and mesenteric arteries are patent. Main portal vein, splenic vein, SMV are patent. Bilateral renal veins patent. No evidence of thrombus. Bowel: No significant bowel thickening or dilatation. The appendix is not seen. Extensive diverticulosis without evidence of diverticulitis. Bones and soft tissues: No acute osseous abnormalities. IMPRESSION: 1. Patient has undergone resection of the mass in the lower pole of the right kidney on the prior CT. Multiple nodular enhancing foci in and adjacent to the nephrectomy bed. These appear to be prominent vessels, however local recurrence not completely excluded. Attention on follow-up recommended. 2. No evidence of metastatic disease in abdomen or pelvis. 3. Diverticulosis without diverticulitis. SL: [id number] 10/02/2016 [facility] Chest 1view DX Study: Chest 1view DX ND 10/02/2016 Clinical Indication: - C64.1 Malignant neoplasm of right kidney, metastatic workup Comparison: Chest 02/23/2016 FINDINGS: Cardiac size is normal. There is minor aortic atherosclerosis. The lungs are well-expanded and appear clear. No vascular congestion or pleural effusion is seen. There is mild thoracic dextroscoliosis. IMPRESSION: No evidence of metastases or other significant abnormality. SL: [id number] 10/02/2016 [facility] Chest 2 views DX Patient Name: KAI MARIE : 1945; Age: 70 years y/o Female MR: [id number] Study: Chest 2 views DX dated 02/23/2016. Clinical Indication: C64.1 Malignant neoplasm of right kidney, except renal pelvis; Comparison: None Heart size is normal. Aortic calcification. Mediastinal structures otherwise unremarkable. Mild nonspecific biapical pleural thickening. No focal infiltrate identified within the lungs, no edema, no pleural effusions and no pneumothorax. Slight degenerative changes about the thoracic spine. SL: [id number] 02/23/2016 [facility] Abdomen w IV contrast CT Study: Abdomen w IV contrast CT Clinical Indication: N28.89 Other specified disorders of kidney and ureter, right renal cyst Comparison: Renal ultrasound from 07/08/2015 TECHNIQUE: Multiple axial CT images of the abdomen were acquired following the administration of intravenous contrast. Sagittal and coronal reformatted images were performed. Oral contrast was administered to the patient. CT Radiation Dose DLP 950.11 mGy-cm FINDINGS: The visualized lung bases are clear bilaterally. There is an exophytic 2.5 x 3.1 x 2.3 cm complex hypodense cystic lesion arising from the inferior pole of the right kidney with peripheral nodular enhancing components. Smaller 8 mm hypodense cyst in the inferior pole of the right kidney is seen. The liver, gallbladder, pancreas, spleen, adrenal glands, and left kidney are unremarkable. No intrahepatic or extrahepatic biliary duct dilatation is seen. Multiple diverticula of the descending colon are noted. The remaining visualized hollow viscera are unremarkable. Mild arterial calcifications are seen. No intraperitoneal free air, free fluid, or pathologic adenopathy is seen. Degenerative changes of the lower lumbar spine are seen. 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 IMPRESSION: 1. Exophytic 2.5 x 3.1 x 2.3 cm complex hypodense cystic lesion arising from the inferior pole of the right kidney with peripheral nodular enhancing components. This is highly suspicious for malignancy. SL: [id number] 08/30/2015 [facility] Retroperitoneal Complete US Study: Retroperitoneal Complete US Clinical Indication: R35.0 Frequency of micturition; Comparison: None TECHNIQUE: Multiple longitudinal and transverse real time sonographic images of the kidneys and urinary bladder are obtained. FINDINGS: KIDNEY: The right kidney measures 10.6 x 4.4 x 4.5 cm. The left kidney measures 10.6 x 4.4 x 4.5 cm. Each kidney demonstrates a normal sonographic texture. A simple 4.2 cm right cortical cyst is noted. No mass, hydronephrosis, calculus or perinephric fluid collection is identified. BLADDER: The visualized small volume urinary bladder is not remarkable. Bladder volume is 83 cc. The patient voided prior to the procedure. IMPRESSION: Small volume bladder, otherwise unremarkable examination. SL: [id number] 07/08/2015 [facility] Consultation Notes No Data Provided for This Section Discharge Summaries No Data Provided for This Section History and Physicals No Data Provided for This Section Vital Signs Vital Sign Value Date Comments Source Temperature Oral (F) 98.1 F 08/05/2018 [facility] BMI Calculated 25.74 08/05/2018 [facility] Height 160.02 cm 08/05/2018 [facility] Weight 65.909 08/05/2018 [facility] Respitory Rate 18 08/05/2018 [facility] Systolic (mm Hg) 181 08/05/2018 [facility] Diastolic (mm Hg) 85 08/05/2018 [facility] Heart Rate 74 08/05/2018 [facility] Systolic (mm Hg) 133 10/15/2015 [facility] Diastolic (mm Hg) 72 10/15/2015 [facility] Respitory Rate 16 10/15/2015 [facility] Heart Rate 84 10/15/2015 [facility] Temperature Oral (F) 98.0 F 10/15/2015 [facility] Systolic (mm Hg) 144 10/15/2015 [facility] Diastolic (mm Hg) 72 10/15/2015 [facility] Respitory Rate 18 10/15/2015 [facility] Heart Rate 72 10/15/2015 [facility] Temperature Oral (F) 98.3 F 10/15/2015 [facility] Temperature Oral (F) 98 F 10/15/2015 [facility] Heart Rate 81 10/15/2015 [facility] Respitory Rate 18 10/15/2015 [facility] Systolic (mm Hg) 125 10/15/2015 [facility] Diastolic (mm Hg) 71 10/15/2015 [facility] Height 157.48 cm 10/12/2015 [facility] Weight 65 10/12/2015 [facility] BMI Calculated 26.21 10/12/2015 [facility] BMI Calculated 26.72 10/06/2015 [facility] Weight 66.273 10/06/2015 [facility] Height 157.48 cm 10/06/2015 [facility] Encounters Location Location Details Encounter Type Encounter Number Reason For Visit Attending Provider ADM Date DC Date Status Source [facility] Outpatient [id number] Andrew Dunlap 07/08/2015 07/09/2015 [facility] Outpatient [id number] Andrew Dunlap 08/30/2015 08/31/2015 [facility] Inpatient [id number] Andrew Dunlap 10/12/2015 10/15/2015 [facility] Outpatient [id number] Andrew Dunlap 02/23/2016 02/24/2016 [facility] Outpatient [id number] ANDREW DUNLAP 09/04/2016 Active [facility] Outpatient [id number] Andrew Dunlap 10/02/2016 10/03/2016 [facility] Discharged Inpatient [id number] JARAD MARTIN MD 08/18/2017 08/25/2017 [facility] Outpatient [id number] Micky Silva 11/15/2017 11/16/[address] [facility] Outpatient Imaging [facility] [id number] Jarad Martin 03/15/2018 03/16/2018 [id number] Outpatient [id number] Astrid Colmenares 08/05/2018 [facility] Outpatient [id number] Astrid Colmenares 08/05/2018 08/06/2018 [facility] Procedures Procedure Code Date Perfomer Comments Source Computed tomography of abdomen and pelvis with contrast [id number] 08/18/2017 [facility] Laparoscopic partial nephrectomy [id number] 10/12/2015 [facility] Laparoscopic partial nephrectomy [id number] 10/12/2015 [facility] Laparoscopic partial nephrectomy [id number] 10/12/2015 [id number] Laparoscopic partial nephrectomy [id number] 10/12/2015 [facility] Suspension of bladder [id number] 04/30/2004 [facility] Suspension of bladder [id number] 04/30/2004 [facility] Suspension of bladder [id number] 04/30/2004 [id number] Suspension of bladder [id number] 04/30/2004 [facility] Ovarian operation<sup>1</sup> [id number] 04/30/2004 Right ovarian benign tumor [facility] Ovarian operation<sup>1</sup> [id number] 04/30/2004 Right ovarian benign tumor [facility] Ovarian operation<sup>1</sup> [id number] 04/30/2004 Right ovarian benign tumor [id number] Ovarian operation<sup>1</sup> [id number] 04/30/2004 Right ovarian benign tumor [facility] Hysterectomy [id number] 06/02/1993 [facility] Hysterectomy [id number] 06/02/1993 [facility] Hysterectomy [id number] 06/02/1993 [id number] Hysterectomy [id number] 06/02/1993 [facility] Assessment and Plan Assessment and Plan Date Source Extracted from:Title: Clinical Document Author: Andrew Dunlap MD Date: 10/14/15 Progress Daily [facility] Completed: Sep, 10:20 by Andrew Dunlap MD RM: 363 - 00, NW DSW2 KAI MARIE 69y (: 1945) F Attending: Andrew Dunlap MD Service: Urology Service Reason for Admission: MALIGNANT NEOPLASM RIGHT KIDNEY EXCEPT RENAL PELVIS Working DRG: Kidney and ureter procedures for neoplasm w/o CC/[facility] Code status: None Specified=FULL CODE Current diet: Isolation: None Documented Allergies: amoxicillin, Levaquin, penicillin, Biaxin SUBJECTIVE The patient passed flatus this AM. She has incisional pain with moving only but otherwise is doing well. Clear liquids have been tolerated and yesterday she sat in the chair. 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 Stover still necessary (Yes/No): Line still necessary (Yes/No): (no lab data in past 24 hours) Vitals Tmp(F) Pulse BP RR SpO2 FIO2 10/13 07:55 99.6 93 163/77 18 --- --- 10/13 04:45 99.9 97 156/67 18 97 --- 10/12 23:46 99.0 98 163/72 18 98 --- 10/12 19:43 98.6 72 158/67 18 98 --- 10/12 17:00 98.2 77 148/67 18 --- --- 24 Hr Tmax: 99.9F (37.72c) at 10/13 04:45 Vital Signs are the last 5 in the past 48 hours. Date Wt(kg) Wt(lb) Ht(cm) Ht(in) Method 10/11 65.00 143.00 157.48 62.00 Estimated 10/05 (initial) 66.27 145.80 157.48 62.00 Measured I&O Record In Out Bal 10/13 24hr Tot 240 840 -600 10/12 24hr Tot 2700 3395 -695 Medications (7) Active Scheduled Meds (1): 10/12/15 docusate (docusate sodium 100 mg oral capsule) 100 mg PO BID Unscheduled Meds: None PRN Meds (4): 10/14/15 acetaminophen-hydrocodone (Fortine 7.5/325 oral tablet) 2 tab PO Q4H 10/12/15 naloxone 0.04 mg IVP Q2MIN 10/12/15 ondansetron 4 mg IVP Q6H 10/12/15 sodium chloride (Saline Flush 0.9%) 10 ml IVP PRN One Time Meds: None Continuous Infusions (2): 10/12/15 Lactated Ringers 1,000 mL 1,000 mL 25 ml/hr 10/12/15 sodium chloride 0.45% 1000 ml INJ 1000 mL 1,000 mL 30 ml/hr 10/15/2015 [facility] Plan of Care Plan of Care Date Source Discharge Date 08/25/17 2:14pm Disposition HOME, SELF-CARE Instructions/Education Provided Diverticulitis Prescriptions See Medication Section Referrals PCP (Internal Medicine) Order Date: 5-7 Days Entered Date: 08/25/2017 7:50am NAHUM COLEMAN MD (Gastroenterology) Order Date: 2 Weeks Entered Date: 08/25/2017 7:50am Address: [address] [place] [id number] Additional Instructions/Education DIET TOLERATED NO SEEDS, ACTIVITY TOLERATED KEEP ALL FOLLOW UP APPOINTMENTS RETURN TO ER FOR UNCONTROLLED PAIN NOT RELIEVED BY PAIN MEDICATIONS 08/25/2017 [facility] Social History Social History Date Source Social History Problem Response Recorded Date/Time Onset Date Status Hx Psychiatric Problems No 08/18/2017 8:00am Not Applicable Not Applicable 08/25/2017 [facility] Social History TypeResponse Substance Abuse Use: None. Type: Marijuana. Recreational Drug Route: Inhaled. Alcohol Current, Type Beer, Wine, Liquor. Frequency: 1-2 times per month. Previous treatment: None. Smoking Status Never smoker; Exposure to Tobacco Smoke None; Cigarette Smoking Last 365 Days No; Reg Smoking Cessation Counseling No 10/06/2015 [facility] Social History TypeResponse Substance Abuse Use: None. Type: Marijuana. Recreational Drug Route: Inhaled. Alcohol Current, Type Beer, Wine, Liquor. Frequency: 1-2 times per month. Previous treatment: None. Smoking Status Never smoker; Exposure to Tobacco Smoke None; Cigarette Smoking Last 365 Days No; Reg Smoking Cessation Counseling No entered on: 09/04/16 10/06/2015 [facility] Social [facility] TypeResponse Substance Abuse Use: None. Type: Marijuana. Recreational Drug Route: Inhaled. Alcohol Current, Type Beer, Wine, Liquor. Frequency: 1-2 times per month. Previous treatment: None. Smoking Status Never smoker; Exposure to Tobacco Smoke None; Cigarette Smoking Last 365 Days No; Reg Smoking Cessation Counseling No entered on: 08/05/18 10/06/2015 [id number] Social History TypeResponse Substance Abuse Use: None. Type: Marijuana. Recreational Drug Route: Inhaled. Alcohol Current, Type Beer, Wine, Liquor. Frequency: 1-2 times per month. Previous treatment: None. Smoking Status Never smoker; Exposure to Tobacco Smoke None; Cigarette Smoking Last 365 Days No; Reg Smoking Cessation Counseling No entered on: 08/05/18 10/06/2015 [facility] Family History No Data Provided for This Section Advance Directives Order Name Results Value Date Source Advance Directives Advance Directives Directive Response Recorded Date/Time Does the patient have an advance directive? No 08/18/17 8:00am If yes, is advance directive on file with [facility]? No 08/18/17 8:00am If not on file with [facility] will patient provide a copy? Yes 08/18/17 2:33am Do you have a Directive to Physician? No 08/18/17 2:33am Do you have a Medical Power of Store Mgr? No 08/18/17 2:33am Do you have an out of hospital Do Not Resuscitate Order? No 08/18/17 2:33am Do you have any special needs we should be aware of? No 08/18/17 2:33am Do you have a support person here with you today? Yes 08/18/17 2:33am Did patient receive Notice of Privacy Practices? Yes 08/18/17 2:33am Did patient receive patient rights and responsibilities? Yes 08/18/17 2:33am 08/25/2017 [facility] Functional Status No Data Provided for This Section
--- OUTSIDE RECORDS SUMMARY | 2018-10-29 07:16 | XMS REPORT | Summary of Care ---
Author Author [facility] Organization [facility] Address Unknown Phone Unavailable Encounter DIOGO Bazan(TRACE) [id number] Date(s): 02/23/16 - 02/23/16 [facility] [address] [place] [address]- [phone] Discharge Disposition: Home or Self Care Attending Physician: Sudhakar Dunlap MD Admitting Physician: Sudhakar Dunlap MD Vital Signs No [...]
--- OUTSIDE RECORDS SUMMARY | 2018-10-29 07:16 | XMS REPORT | Summary of Care ---
Author Author [facility] Organization [facility] Address Unknown Phone Unavailable Encounter DIOGO Bazan(TRACE) [id number] Date(s): 10/12/15 - 10/15/15 [facility] [address] [place] [address]- Discharge Disposition: Home Attending Physician: Sudhakar Dunlap MD Admitting Physician: Sudhakar Dunlap MD Referring Physician: Sudhakar Dunlap MD Vital Signs 1 2 3 Most recent to oldest [Reference Range]: 157.48 cm (10/12/15 5:33 PM) 157.48 cm (10/06/15 9:46 AM) Height 98.0 DegF (10/15/15 12:03 PM) 98.3 DegF (10/15/15 7:57 AM) 98 DegF (10/15/15 4:25 AM) Temperature Oral [96.4-99.1 DegF] 133/72 mmHg (10/15/15 12:03 PM) 144/72 mmHg *HI* (10/15/15 7:57 AM) 125/71 mmHg (10/15/15 4:25 AM) Blood Pressure [90-140/60-90 mmHg] 16 BRMIN (10/15/15 12:03 PM) 18 BRMIN (10/15/15 7:57 AM) 18 BRMIN (10/15/15 4:25 AM) Respiratory Rate [14-20 BRMIN] 84 bpm (10/15/15 12:03 PM) 72 bpm (10/15/15 7:57 AM) 81 bpm (10/15/15 4:25 AM) Peripheral Pulse Rate [60-100 bpm] 65 kg (10/12/15 5:33 PM) 66.273 kg (10/06/15 9:46 AM) Weight 26.21 m2 (10/12/15 5:33 PM) 26.72 m2 (10/06/15 9:46 AM) Body Mass Index Problem List Condition Effective Dates Status Health Status Informant Diverticulitis(Confi Resolved rmed) Allergies, Adverse Reactions, Alerts Substance Reaction Severity Status amoxicillin Active Biaxin Active Levaquin Active penicillin Active Medications acetaminophen (ANES) Route: IV, Drug form: INJ, ONCE, Stop date: 10/12/15 11:14:00 CDT Start Date: 10/12/15 Stop Date: 10/12/15 Status: Completed ANES fentaNYL 25 microgram, 0.5 mL, Route: IVP, Drug form: INJ, Q5Min, Dosing Weight 66.273, k g, PRN Pain Score 4-6, Start date: 10/12/15 11:56:00 CDT, Duration: 4 doses or t imes, Stop date: 10/12/15 20:00:00 CDT Notes: (Same as: Sublimaze) Preservative free. Start Date: 10/12/15 Stop Date: 10/12/15 Status: Completed ANES flumazenil 0.2 mg, 2 mL, Route: IVP, Drug form: INJ, PRN, Dosing Weight 66.273, kg, PRN Albert zodiazepine Reversal, Initial dose, Start date: 10/12/15 11:56:00 CDT, Stop date : 10/12/15 20:00:00 CDT Notes: (Same as: Romazicon) Start Date: 10/12/15 Stop Date: 10/12/15 Status: Completed ANES HYDROmorphone 0.5 mg, 0.25 mL, Route: IVP, Drug form: INJ, Q5Min, Dosing Weight 66.273, kg, NE N Pain Score 7-10, Start date: 10/12/15 11:56:00 CDT, Duration: 4 doses or times , Stop date: 10/12/15 20:00:00 CDT Notes: (Same as: Dilaudid) Start Date: 10/12/15 Stop Date: 10/12/15 Status: Completed ANES meperidine 12.5 mg, 0.5 mL, Route: IVP, Drug form: INJ, Q30Min, Dosing Weight 66.273, kg, P RN Other -See Comment, For shivering, Start date: 10/12/15 11:56:00 CDT, Duratio n: 2 doses or times, Stop date: 10/12/15 20:00:00 CDT Notes: (Same as: Demerol) "Use Precaution in Elderly, Seizure disorders, and Re nal impairment" Start Date: 10/12/15 Stop Date: 10/12/15 Status: Completed ANES morphine Sulfate 4 mg, 1 mL, Route: IVP, Drug form: INJ, Q5Min, Dosing Weight 66.273, kg, PRN Juan Jose n Score 7-10, Start date: 10/12/15 11:56:00 CDT, Duration: 3 doses or times, Sto p date: 10/12/15 20:00:00 CDT Notes: (Same as:MORPhine Sulfate) Start Date: 10/12/15 Stop Date: 10/12/15 Status: Completed ANES naloxone 0.4 mg, 1 mL, Route: IVP, Drug form: INJ, Q2MIN, Dosing Weight 66.273, kg, PRN N arcotic Reversal, Start date: 10/12/15 11:56:00 CDT, Duration: 8 doses or times, Stop date: 10/12/15 20:00:00 CDT Notes: Same as Narcan Start Date: 10/12/15 Stop Date: 10/12/15 Status: Completed ANES ondansetron 4 mg, 2 mL, Route: IVP, Drug form: INJ, ONCE, Dosing Weight 66.273, kg, PRN Naus ea & Vomiting, Start date: 10/12/15 11:56:00 CDT Notes: (Same as: Noa) MEDICATION WASTE Product Size: 4 mgProduct Was octavia: ___ mg Start Date: 10/12/15 Stop Date: 10/15/15 Status: Discontinued Colace 100 mg oral capsule 100 mg=1 cap, PO, BID, PRN Constipation, # 60 cap, 0 Refill(s) Start Date: 10/15/15 Status: Ordered dexamethasone (ANES) Route: IV, Drug form: INJ, ONCE, Stop date: 10/12/15 11:14:00 CDT Start Date: 10/12/15 Stop Date: 10/12/15 Status: Completed docusate sodium 100 mg oral capsule 100 mg, 1 cap, Route: PO, Drug form: CAP, BID, Dosing Weight 66.273, kg, Start d ate: 10/12/15 17:00:00 CDT, Duration: 30 day, Stop date: 11/11/15 9:00:00 CDT Notes: (Same as: Colace) (Do Not Crush) Start Date: 10/12/15 Stop Date: 10/15/15 Status: Discontinued fentaNYL (ANES) Route: IV, Drug form: INJ, ONCE, Stop date: 10/12/15 9:57:00 CDT Start Date: 10/12/15 Stop Date: 10/12/15 Status: Completed glycopyrrolate (ANES) Route: IV, Drug form: INJ, ONCE, Stop date: 10/12/15 11:14:00 CDT Start Date: 10/12/15 Stop Date: 10/12/15 Status: Completed Hextend (ANES) (ANES) Route: IV, Drug Form: INJ, Start date: 10/12/15 9:00:00 CDT, Stop date: 10/12/15 10:00:00 CDT Start Date: 10/12/15 Stop Date: 10/12/15 Status: Completed hydromorphone (ANES) Route: IV, Drug form: INJ, ONCE, Stop date: 10/12/15 11:33:00 CDT Start Date: 10/12/15 Stop Date: 10/12/15 Status: Completed Lactated Ringers 1,000 mL 1,000 mL, Rate: 25 ml/hr, Infuse over: 40 hr, Route: IV, Dosing Weight 66.273 kg , Total Volume: 1,000, Start date: 10/12/15 7:53:00 CDT, Duration: 30 day, Stop date: 11/11/15 7:52:00 CDT Start Date: 10/12/15 Stop Date: 10/15/15 Status: Discontinued levofloxacin (ANES) Route: IV, Drug form: INJ, ONCE, Stop date: 10/12/15 10:08:00 CDT Start Date: 10/12/15 Stop Date: 10/12/15 Status: Completed lidocaine (ANES) Route: IV, Drug form: INJ, ONCE, Stop date: 10/12/15 9:57:00 CDT Start Date: 10/12/15 Stop Date: 10/12/15 Status: Completed LR 1000 mL INJ (ANES) Route: IV, Total Volume: 1,000, Start date: 10/12/15 8:43:00 CDT, Stop date: 9:43:00 CDT Start Date: 10/12/15 Stop Date: 10/12/15 Status: Completed midazolam (ANES) Route: IV, Drug form: SOLN, ONCE, Stop date: 10/12/15 9:36:00 CDT Start Date: 10/12/15 Stop Date: 10/12/15 Status: Completed MORPhine sulfate BACK MAKER 30 mg/30 ml INJ syringe 30 mg 30 mg, 30 mL, Route: IV, Initial Loading Dose: 2 mg, BACK MAKER Dose: 1 mg, BACK MAKER Lockou t: 10 minutes, Continuous Basal Rate: 0 mg, 4 Hour Limit (In MG): 30, Drug Form: INJ, Continuous, Start date: 10/12/15 11:30:00 CDT, Duration: 30 day, Stop date: 11/11/15... Notes: Dose: Delay: Basal rate: 4hr limit:( Same as:Maryjane-Chase) Start Date: 10/12/15 Stop Date: 10/14/15 Status: Discontinued naloxone 0.04 mg, 0.1 mL, Route: IVP, Drug form: INJ, Q2MIN, Dosing Weight 66.273, kg, NE N Narcotic Reversal, Start date: 10/12/15 11:17:00 CDT, Duration: 30 day, Stop d ate: 11/11/15 11:16:00 CDT Notes: Same as Narcan Start Date: 10/12/15 Stop Date: 10/15/15 Status: Discontinued neostigmine (ANES) Route: IV, Drug form: INJ, ONCE, Stop date: 10/12/15 11:14:00 CDT Start Date: 10/12/15 Stop Date: 10/12/15 Status: Completed [place] 7.5/325 oral tablet 1 tab, PO, Q6H, PRN Headache 4-6, # 40 tab, 0 Refill(s) Start Date: 10/15/15 Stop Date: 10/26/15 Status: Ordered [place] 7.5/325 oral tablet 2 tab, Route: PO, Drug Form: TAB, Dosing Weight 65, kg, Q4H, PRN Pain Score 7-10 , Start date: 10/14/15 10:19:00 CDT, Duration: 30 day, Stop date: 11/13/15 10:18 :00 CDT Notes: Same as [place] 325-7.5mg Do not exceed 4gm/day of acetaminophen. Start Date: 10/14/15 Stop Date: 10/15/15 Status: Discontinued ondansetron 4 mg, 2 mL, Route: IVP, Drug form: INJ, Q6H, Dosing Weight 66.273, kg, PRN Nause a & Vomiting, Start date: 10/12/15 11:17:00 CDT, Duration: 30 day, Stop date: 11/11/15 11:16:00 CDT Notes: (Same as: Noa) MEDICATION WASTE Product Size: 4 mgProduct Was octavia: ___ mg Start Date: 10/12/15 Stop Date: 10/15/15 Status: Discontinued ondansetron (ANES) Route: IV, Drug form: INJ, ONCE, Stop date: 10/12/15 11:14:00 CDT Start Date: 10/12/15 Stop Date: 10/12/15 Status: Completed propofol (ANES) Route: IV, Drug form: INJ, ONCE, Stop date: 10/12/15 9:57:00 CDT Start Date: 10/12/15 Stop Date: 10/12/15 Status: Completed rocuronium (ANES) Route: IV, Drug form: INJ, ONCE, Stop date: 10/12/15 9:57:00 CDT Start Date: 10/12/15 Stop Date: 10/12/15 Status: Completed Saline Flush 0.9% 10 ml, Route: IVP, Drug Form: INJ, Dosing Weight 66.273, kg, PRN, PRN Line Flush , Start date: 10/12/15 11:17:00 CDT, Duration: 30 day, Stop date: 11/11/15 11:16 :00 CDT Notes: Same as: BD Posiflush Sterile Start Date: 10/12/15 Stop Date: 10/15/15 Status: Discontinued sodium chloride 0.45% 1000 ml INJ 1,000 mL 1,000 mL, Rate: 30 ml/hr, Infuse over: 33.3 hr, Route: IV, Dosing Weight 66.273 kg, Total Volume: 1,000, Start date: 10/12/15 11:17:00 CDT, Stop date: 11/11/15 11:16:00 CDT Start Date: 10/12/15 Stop Date: 10/14/15 Status: Discontinued trazodone 25 mg, 0.5 tab, Route: PO, Drug form: TAB, Bedtime, Dosing Weight 65, kg, PRN Sl eep, Start date: 10/14/15 17:45:00 CDT, Duration: 30 day, Stop date: 11/13/15 17 :44:00 CDT, .. Notes: (Same As: Nisreen) Start Date: 10/14/15 Stop Date: 10/15/15 Status: Discontinued Results BLOOD BANK RESULTS Most recent to 1 2 oldest [Reference Range]: ABO/Rh A POS *Unknown* (10/11/15 9:35 AM) Antibody Scrn Negative (10/11/15 9:35 AM) RBC product Product available (10/11/15 9:34 AM) ELECTROLYTES Most recent to 1 2 oldest [Reference Range]: Sodium Lvl [135-145 137 mEq/L 141 mEq/L mEq/L] (10/13/15 4:20 AM) (10/06/15 8:48 AM) Potassium Lvl 5.1 mEq/L 4.1 mEq/L [3.5-5.1 mEq/L] (10/13/15 4:20 AM) (10/06/15 8:48 AM) Chloride Lvl [95-109 103 mEq/L 107 mEq/L mEq/L] (10/13/15 4:20 AM) (10/06/15 8:48 AM) CO2 [24-32 mEq/L] 29 mEq/L 30 mEq/L (10/13/15 4:20 AM) (10/06/15 8:48 AM) AGAP [10.0-20.0 10.1 mEq/L 8.1 mEq/L mEq/L] (10/13/15 4:20 AM) *LOW* (10/06/15 8:48 AM) CHEM PANEL Most recent to 1 2 oldest [Reference Range]: Creatinine Lvl 0.56 mg/dL 0.57 mg/dL [0.50-1.40 mg/dL] (10/13/15 4:20 AM) (10/06/15 8:48 AM) eGFR 97 mL/min/1.73m2 1 96 mL/min/1.73m2 2 *NA* *NA* (10/13/15 4:20 AM) (10/06/15 8:48 AM) BUN [7-22 mg/dL] 11 mg/dL 15 mg/dL (10/13/15 4:20 AM) (10/06/15 8:48 AM) Glucose Lvl [70-99 99 mg/dL 88 mg/dL mg/dL] (10/13/15 4:20 AM) (10/06/15 8:48 AM) Calcium Lvl 7.9 mg/dL 8.6 mg/dL [8.5-10.5 mg/dL] *LOW* (10/06/15 8:48 AM) (10/13/15 4:20 AM) 1Result Comment: The eGFR is calculated [...] be mul tiplied by the estimated BMI. 2Result Comment: The eGFR is calculated using the [...] be mul tiplied by the estimated BMI. HEMATOLOGY Most recent to 1 2 oldest [Reference Range]: WBC [3.7-10.4 K/CMM] 14.1 K/CMM *HI* (10/13/15 4:20 AM) RBC [4.20-5.40 4.16 M/CMM M/CMM] *LOW* (10/13/15 4:20 AM) Hgb [12.0-16.0 g/dL] 11.8 g/dL 12.7 g/dL *LOW* (10/06/15 8:48 AM) (10/13/15 4:20 AM) Hct [36.0-48.0 %] 36.6 % 39.3 % (10/13/15 4:20 AM) (10/06/15 8:48 AM) MCV [80.0-98.0 fL] 88.2 fL (10/13/15 4:20 AM) MCH [27.0-31.0 pg] 28.4 pg (10/13/15 4:20 AM) MCHC [32.0-36.0 32.2 g/dL g/dL] (10/13/15 4:20 AM) RDW [11.5-14.5 %] 14.5 % (10/13/15 4:20 AM) Platelet [133-450 179 K/CMM K/CMM] (10/13/15 4:20 AM) MPV [7.4-10.4 fL] 10.1 fL (10/13/15 4:20 AM) Segs [45.0-75.0 %] 85.8 % *HI* (10/13/15 4:20 AM) Lymphocytes 7.3 % [20.0-40.0 %] *LOW* (10/13/15 4:20 AM) Monocytes [2.0-12.0 6.8 % %] (10/13/15 4:20 AM) Basophils [0.0-1.0 0.1 % %] (10/13/15 4:20 AM) Segs-Bands # 12.1 K/CMM [1.5-8.1 K/CMM] *HI* (10/13/15 4:20 AM) Lymphocytes # 1.0 K/CMM [1.0-5.5 K/CMM] (10/13/15 4:20 AM) Monocytes # [0.0-0.8 1.0 K/CMM K/CMM] *HI* (10/13/15 4:20 AM) Immunizations No data available for this section [...] Smoking Cessation Counseling No Assessment and Plan Extracted from: Title: Clinical Document Author: Sudhakar Dunlap MD Date: 10/14/15 Progress Daily [facility] Completed: Sep, 10:20 by Sudhakar Dunlap MD RM: [id number], [address] [id number] (: 1945) F Attending: Sudhakar Dunlap MDPhone: Service: Urology Service Reason for Admission: 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 She has incisional pain with moving only but otherwise is doing well. Clear liquids have been tolerated and yesterday she sat in the chair. OBJECTIVE YING 60 cc over 24 hours UOP 4175 cc ASSESSMENT & EXAM ABD soft Incisions are clean YING and stover/ureteral catheter are in place - urine is sl blood tinged PLAN & TREATMENT Advance diet to regular Decrease IVF D/C BACK MAKER [place] prn DIAGNOSES & PROBLEMS s/p R partial nephrectomy POD #2 Ready for Discharge (Yes/No)? Stover still necessary (Yes/No): Line still necessary (Yes/No): (no lab data in past 24 hours) VitalsTmp(F)[id number] 10/13 07:5599.153621/7718------ 10/13 04:4599.158628/578950--- 10/12 23:4699.207855/893271--- 10/12 19:4398.527110/094110--- 10/12 17:0098.959657/6718------ 24 Hr Tmax: 99.9F (37.72c) at 10/13 04:45Vital Signs are the last 5 in the past 48 hours. DateWt(kg)Wt(lb)Ht(cm)Ht(in)Method 10/11 65.00 [id number] 62.00Estimated 10/05 (initial) 66.27 [phone] 62.00Measured I&ORecordInOutBal 1624hr Tot 240 840 -600 1524hr Tot 2700 3395 -695 Medications (7) Active Scheduled Meds (1): 10/12/15 docusate (docusate sodium 100 mg oral capsule) 100 mg PO BID Unscheduled Meds: None PRN Meds (4): 10/14/15 acetaminophen-hydrocodone ([place] 7.5/325 oral tablet) 2 tab PO Q4H [...]
[2018-10-29] MEDS ORDERED: LEVOFLOXACIN 500MG/D5W 100ML 100 ML IV ONE (07:25)
[2018-10-29] MEDS ORDERED: BUPIVACAINE HCL 0.5% INJ 30 ML VIAL INJ ONE (08:28)
[2018-10-29] MEDS ORDERED: ACETAMINOPHEN 1000 MG/100 ML IV PRN (11:15)
[2018-10-29] MEDS ORDERED: MORPHINE SULFATE 1 MG/ML 30ML PCA IV PRN (11:15)
[2018-10-29] MEDS ORDERED: KETOROLAC TROMETHAMINE 30 MG/ML VIAL IV PRN (11:15)
[2018-10-29] MEDS ORDERED: NALOXONE HCL INJ 0.4 MG/ML AMP IV PRN (11:15)
--- NOTE | 2018-10-29 11:38 | Operative Report ---
DATE OF PROCEDURE: 10/29/2018 SURGEON: Parker Emerson MD PREOPERATIVE DIAGNOSIS: Recurrent sigmoid diverticulitis. POSTOPERATIVE DIAGNOSIS: Recurrent sigmoid diverticulitis. PROCEDURE: Diagnostic laparoscopy, open sigmoid colon resection. INVESTOR RELATIONS ASSOCIATE: None. ANESTHESIA: General. INDICATIONS AND FINDINGS: The patient is a 72-year-old female, who had recurrent episodes of sigmoid diverticulitis. At surgery, the patient had a dense inflammatory reaction with a contained perforation involving the proximal sigmoid colon where there was considerable inflammation and fibrosis of the colon in this area. Colon proximal to this was soft without inflammation and the distal sigmoid colon also did not have any inflammation. There were extensive adhesions filling up the entire lower abdomen making laparoscopic surgery unsafe. TECHNIQUE: After adequate general endotracheal anesthesia with the patient in supine position, the abdomen was prepped and draped in a sterile fashion with ChloraPrep solution. Skin just below the umbilicus was infiltrated with 0.5% Marcaine. Incision was made, abdominal wall was elevated, a Veress needle was introduced, pneumoperitoneum was then created. A 10 mm trocar and cannula was passed through this wound. Laparoscopic camera was introduced. Laparoscopy revealed adhesions filling entire lower abdomen. Free peritoneal cavity could not be entered. A 5 mm trocar and cannula was placed in the epigastrium and laparoscope was introduced through this cannula site and there found to be extensive adhesions involving the entire lower abdomen such that laparoscopic surgery would not be safe. A lower midline incision was made, the peritoneal cavity was entered, the adhesions were lysed. There were adhesions involving omentum and small bowel. All the adhesions were lysed freeing the omentum and small bowel completely. Sigmoid colon was examined. There was dense inflammatory reaction around the proximal sigmoid colon. The left colon was mobilized by dividing peritoneal attachments. Left ureter was identified and preserved. The colon was mobilized all the way down to where the dense inflammation was and there was found to be contained perforation with purulent fluid in this area. Distal sigmoid colon also was mobilized. The mobilization continued until all the colon was completely free from the abdominal wall. The ureter was identified and preserved. Once the colon was completely mobilized, the inflamed segment of the colon was resected. The colon proximal to this was divided with a ABY stapler, mesentery was divided with LigaSure device and distal colon divided with a ABY stapler. The specimen removed. The left colon was mobilized further by dividing peritoneal attachments all way up to the splenic flexure such that the colon anastomosis could easily be done without any tension. Anastomosis was made between the proximal and distal colon in two layers with 3-0 silk and 3-0 Vicryl. Hemostasis was seen to be adequate. The wound was irrigated with saline, inspected for hemostasis which was seen to be adequate. The midline fascia was closed with running suture of #1 PDS. Subcutaneous tissue was irrigated with saline. Skin was closed with del. A sterile dressing was applied. The patient tolerated the procedure well, estimated blood loss was 250 mL, there were no complications, all counts were correct and the patient was taken to the recovery room in satisfactory condition. MD IVAN Whitehead/LISANDRA /[id number] cc: Jarad Jacome MD
--- OUTSIDE RECORDS SUMMARY | 2018-10-29 11:48 | XMS REPORT | Clinical Summary ---
Author Author [facility] Organization [facility] Address Unknown Phone Unavailable Care Team Providers Care Xerox Machine Operator Name Role Phone Jarad Jacome MD PCP [...] colon. More suggestive of colitis than diverticulitis. [id number] Procedure Note [facility], Radiology Results Incoming - 08/09/2018 5:02 [...] colon. More suggestive of colitis than diverticulitis. [facility]-[id number] Performing Organization Address City/State/Zipcode Phone Number [address] [place] [address] * Urinalysis screen and microscopy, with reflex to culture (08/09/2018 4:30 PM CDT) Specimen site Clean catch [facility] Color, UA Yellow [facility] Appearance, UA Hazy [facility] Specific 1.024 1.001 - 1.035 [place] gravity, UA [facility] pH, UA 5.0 5.0 - 8.5 [facility] Protein, UA 1+ (A) Negative [facility] Glucose, UA Negative Negative [facility] Ketones, UA 1+ (A) Negative [facility] Bilirubin, UA Negative Negative [facility] Blood, UA Moderate (A) Negative [facility] Nitrite, UA Negative Negative [facility] Urobilinogen, <2.0 <2.0 [facility] Leukocyte Negative Negative [place] esterase, UA [facility] Epithelial 1 /HPF [place] cells, UA [facility] WBC, UA <1 0 - 4 /HPF [facility] RBC, UA 42 (H) 0 - 5 /HPF [facility] Bacteria, UA None seen None seen [facility] Yeast, UA None seen [facility] Yeast with None seen [place] [facility] Specimen Urine Performing Organization Address City/State/Zipcode Phone Number [facility] [place] [address] [place] [address] PATHOLOGY AND GENOMIC MEDICINE [facility] [id number] [place] [address] * Urine culture (08/09/2018 4:30 PM CDT) Urine culture SEE COMMENTComment: [place] Bacteriuria screen negative. [facility] Specimen Performing Organization Address City/[facility]/Zipcode Phone Number [facility] [place] [address] [place] [address] PATHOLOGY AND GENOMIC MEDICINE [facility] [id number] [place] [address] * Estimated GFR (08/09/2018 3:05 PM CDT) Estimated GFR >=90 mL/min/1.73 m2 [place] Comment: [facility] rpretation G1 >=90 Normal or high G2 60-89Mildly decreased [id number] Mildly to moderately decreased Q9r31-10 Moderately to severely decreased G4 15-29Severely decreased G5 <15Kidney failure The eGFR was calculated using the Chronic Kidney Disease Epidemiology Collaboration (CKD-EPI) equation. Interpretation is based on recommendations of the National Kidney Foundation-Kidney Disease Outcomes Quality Initiative (NKF-KDOQI) published in 2014. Specimen Plasma specimen Performing Organization Address City/State/Zipcode Phone Number [facility] [place] [address] [address] [place] [id number] PATHOLOGY AND GENOMIC MEDICINE [facility] [id number] [place] [address] HOSPITAL * CBC with platelet and differential (08/09/2018 3:05 PM CDT) WBC 10.66 4.50 - 11.00 k/uL [facility] RBC 4.92 4.20 - 5.50 m/uL [facility] HGB 14.3 12.0 - 16.0 g/dL [facility] HCT 42.5 37.0 - 47.0 % [facility] MCV 86.4 82.0 - 100.0 fL [facility] MCH 29.1 27.0 - 34.0 pg [facility] MCHC 33.6 31.0 - 37.0 g/dL [facility] RDW - SD 40.6 37.0 - 55.0 fL [facility] MPV 11.8 8.8 - 13.2 fL [facility] Platelet count 218 150 - 400 k/uL [facility] Neutrophils 81.3 (H) 39.0 - 69.0 % [facility] Lymphocytes 12.1 (L) 25.0 - 45.0 % [facility] Monocytes 5.1 0.0 - 10.0 % [facility] Eosinophils 0.4 0.0 - 5.0 % [facility] Basophils 0.6 0.0 - 1.0 % [facility] Immature 0.5 0.0 - 1.0 % [place] granulocytes [facility] Specimen Blood Performing Organization Address City/State/Zipcode Phone Number [facility] [place] [address] [place] [address] PATHOLOGY AND GENOMIC MEDICINE [facility] [address] [place] [address] HOSPITAL * Comprehensive metabolic panel (08/09/2018 3:05 PM CDT) Sodium 142 135 - 148 mEq/L [facility] Potassium 4.4 3.5 - 5.0 mEq/L [facility] Chloride 103 99 - 109 mEq/L [facility] CO2 25 24 - 31 mEq/L [facility] Anion gap 14@ANIO 7 - 15 mEq/L [facility] BUN 13 8 - 24 mg/dL [facility] Creatinine 0.60 0.50 - 0.90 mg/dL [facility] Glucose 99 65 - 99 mg/dL [facility] Calcium 9.5 8.6 - 10.6 mg/dL [facility] Protein 8.2 6.3 - 8.2 g/dL [facility] Albumin 4.2 3.5 - 5.0 g/dL [facility] A/G ratio 1.0 0.7 - 3.8 [facility] Alkaline 94 30 - 115 U/L [place] phosphatase [facility] AST 29 15 - 46 U/L [facility] ALT 17 10 - 55 U/L [facility] Total bilirubin 0.5 0.2 - 1.2 mg/dL [facility] Specimen Plasma specimen Performing Organization Address City/State/Zipcode Phone Number [facility] [place] [address] [place] [address] PATHOLOGY AND GENOMIC MEDICINE [facility] [id number] [place] [address] HOSPITAL after 10/28/2017 Insurance Type Payer Benefit Subscriber ID Effective Phone Address Plan / Dates Group HMO [employer] C[employer] xxxxxxxxxxx [id number] [employer] resent NG O MCR ADV Advance Directives Patient has advance care planning documents on file. For more information, jayne cooper contact: [facility] [address] [place] [address]
--- OUTSIDE RECORDS SUMMARY | 2018-10-29 11:49 | XMS REPORT | Continuity of Care Document ---
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 Active 10/30/2017 [facility] C64.1 Active 09/08/2016 [facility] MALIGNANT NEOPLASM OF RIGHT KIDNEY Active 02/23/2016 [facility] MALIGNANT NEOPLASM Active 09/13/2015 [facility] MALIGNANT NEOPLASM RIGHT KIDNEY EXCEPT R Active 09/13/2015 [facility] N28.89 Active 08/02/2015 [facility] N28.89 RIGHT RENAL MASS Active 08/02/2015 [facility] R35.0 FREQUENCY OF MICTURITION Active 07/01/2015 [facility] Left lower quadrant pain 06/04/2018 [facility] Diverticulitis of intestine, part unspecified, without perforation or abscess without bleeding 06/04/2018 [facility] Diverticulosis of large intestine without perforation or abscess without bleeding 06/04/2018 [facility] Melena 06/04/2018 [facility] Personal history of colonic polyps 06/04/2018 [facility] Other specified soft tissue disorders 10/03/2018 [id number] Diverticulitis Resolved Problem 10/03/2018 [facility],[id number],[facility] Diverticulitis of sigmoid colon Active Problem 08/25/[address] [facility] Failure of outpatient treatment Active Problem 08/25/[address] [facility] FREQUENCY OF MICTURITION Active [facility] OTHER SPECIFIED DISORDERS OF KIDNEY AND Active [facility] MALIGNANT NEOPLASM OF RIGHT KIDNEY, EXCE Active [facility] Medications Medication Details Route Status Patient Instructions Ordering Provider Order Date Source pantoprazole 40 mg oral granule =1 Pack, PO, Daily, # 30 ea, 0 Refill(s) Active 08/05/[facility] labetalol 200 mg oral tablet 200 mg=1 tab, PO, BID, 0 Refill(s) Active 08/05/2018 [facility] Labetalol Hcl 100 Mg Tablet Every 12 Hours Active [facility] 08/25/[address] [facility] Levofloxacin (Levaquin) 500 Mg Tablet Daily Active [facility] 08/25/[address] [facility] Metronidazole (Flagyl) 500 Mg Tablet Three Times A Day Active [facility] 08/25/[address] [facility] Ondansetron (Zofran Odt) 4 Mg Tab.rapdis Q4-6H Prn Active [facility] 08/25/[address] [facility] Pantoprazole Sodium (Protonix) 40 Mg Tablet. Daily Active [facility] 08/25/[address] [facility] Sennosides (Senna Lax) 8.6 Mg Tablet Daily Active [facility] 08/25/[address] [facility] Acetaminophen 325 MG / Hydrocodone Bitartrate 7.5 MG Oral Tablet [Knox 7.5/325] 1 tab, PO, Q6H, PRN Headache 4-6, # 40 tab, 0 Refill(s) Active 10/15/2015 [facility] Docusate Sodium 100 MG Oral Capsule [Colace] 100 mg=1 cap, PO, BID, PRN Constipation, # 60 cap, 0 Refill(s) Active 10/15/2015 [facility] Trazodone 25 mg, 0.5 tab, Route: PO, Drug form: TAB, Bedtime, Dosing Weight 65, kg, PRN Sleep, Start date: 10/14/15 17:45:00 CDT, Duration: 30 day, Stop date: 11/13/15 17:44:00 CDT, ..Notes: (Same As: Nisreen) No Longer Active 10/14/2015 [facility] Acetaminophen 325 MG / Hydrocodone Bitartrate 7.5 MG Oral Tablet [Knox 7.5/325] 2 tab, Route: PO, Drug Form: TAB, Dosing Weight 65, kg, Q4H, PRN Pain Score 7-10, Start date: 10/14/15 10:19:00 CDT, Duration: 30 day, Stop date: 11/13/15 10:18:00 CDTNotes: Same as Knox 325-7.5mg Do not exceed 4gm/day of acetaminophen. [...] Wasted: ___ mg No Longer Active 10/12/2015 [facility] Naloxone 0.4 mg, 1 mL, Route: IVP, Drug form: INJ, Q2MIN, Dosing Weight 66.273, kg, PRN Narcotic Reversal, Start date: 10/12/15 11:56:00 CDT, Duration: 8 doses or times, Stop date: 10/12/15 20:00:00 CDTNotes: Same as Narcan Inactive 10/12/2015 [facility] Flumazenil 0.2 mg, 2 mL, Route: IVP, Drug form: INJ, PRN, Dosing Weight 66.273, kg, PRN Benzodiazepine Reversal, Initial dose, Start date: 10/12/15 11:56:00 CDT, Stop date: 10/12/15 20:00:00 CDTNotes: (Same as: Romazicon) Inactive 10/12/2015 [facility] Fentanyl 25 microgram, 0.5 mL, Route: IVP, Drug form: INJ, Q5Min, Dosing Weight 66.273, kg, PRN Pain Score 4-6, Start date: 10/12/15 11:56:00 CDT, Duration: 4 doses or times, Stop date: 10/12/15 20:00:00 CDTNotes: (Same as: Sublimaze) Preservative free. 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 DRIVER Lockout: 10 minutes, Continuous Basal Rate: 0 [...] Stop date: 10/12/15 11:14:00 CDT Inactive 10/12/2015 [facility] acetaminophen (ANES) Route: IV, Drug form: INJ, ONCE, Stop date: 10/12/15 11:14:00 CDT Inactive 10/12/2015 [facility] neostigmine (ANES) Route: IV, Drug form: INJ, ONCE, Stop date: 10/12/15 11:14:00 CDT Inactive 10/12/2015 [facility] ondansetron (ANES) Route: IV, Drug form: INJ, ONCE, Stop date: 10/12/15 11:14:00 CDT Inactive 10/12/2015 [facility] levofloxacin (ANES) Route: IV, Drug form: INJ, ONCE, Stop date: 10/12/15 10:08:00 CDT Inactive 10/12/2015 [facility] lidocaine (ANES) Route: IV, Drug form: INJ, ONCE, Stop date: 10/12/15 9:57:00 CDT Inactive 10/12/2015 [facility] fentaNYL (ANES) Route: IV, Drug form: INJ, ONCE, Stop date: 10/12/15 9:57:00 CDT Inactive 10/12/2015 [facility] rocuronium (ANES) Route: IV, Drug form: INJ, ONCE, Stop date: 10/12/15 9:57:00 CDT Inactive 10/12/2015 [facility] propofol (ANES) Route: IV, Drug form: INJ, ONCE, Stop date: 10/12/15 9:57:00 CDT Inactive 10/12/2015 [facility] midazolam (ANES) Route: IV, Drug form: SOLN, ONCE, Stop date: 10/12/15 9:36:00 CDT Inactive 10/12/2015 [facility] Hextend (ANES) (ANES) Route: IV, Drug Form: INJ, Start date: 10/12/15 9:00:00 CDT, Stop date: 10/12/15 10:00:00 CDT Inactive 10/12/2015 [facility] LR 1000 mL INJ (ANES) Route: IV, Total Volume: 1,000, Start date: 10/12/15 8:43:00 CDT, Stop date: 10/12/15 9:43:00 CDT Inactive 10/12/2015 [facility] Calcium Chloride 0.0014 MEQ/ML / Potassium Chloride 0.004 MEQ/ML / Sodium Chloride 0.103 MEQ/ML / Sodium Lactate 0.028 MEQ/ML Injectable Solution 1,000 mL, Rate: 25 ml/hr, Infuse over: 40 hr, Route: IV, Dosing Weight 66.273 kg, Total Volume: 1,000, Start date: 10/12/15 7:53:00 CDT, Duration: 30 day, Stop date: 11/11/15 7:52:00 CDT No Longer Active 10/12/2015 [facility] Omnipaque 300 100 mL, Route: IV, Drug Form: SOLN, ONCALL, Start date: 08/30/15 11:00:00 CDT, Duration: 1 doses or timesNotes: (Same as:Omnipaque 300). WASTE: F/P - Black; E - Municipal Trash Bin Inactive 08/30/2015 [facility] Allergies, Adverse Reactions, Alerts Substance Category Reaction Severity Reaction type Status Date Reported Comments Source Penicillin Unknown Allergy to Substance Active 08/18/[address] [facility] Sulfa (Sulfonamide Antibiotics) Unknown Allergy to Substance Active 08/18/[address] [facility] Clarithromycin Unknown Allergy to Substance Active 08/18/[address] [facility] Biaxin Assertion Drug allergy Active [id number] penicillin Assertion Drug allergy Active [id number] amoxicillin Assertion Drug allergy Active [id number] Levaquin Assertion Drug allergy Active [id number] Immunizations No Data Provided for This Section Results Order Name Results Value Reference Range Date Interpretation Comments Source Automated blood basophil count (count/volume) Automated blood basophil count (count/volume) 0.0 0.0 - 0.1 08/23/[address] [facility] Automated blood basophil count as percentage of total leukocytes Automated blood basophil count as percentage of total leukocytes 0.5 0.0 - 1.0 08/23/[address] [facility] Automated blood eosinophil count Automated blood eosinophil count 0.3 0.0 - 0.4 08/23/[address] [facility] Automated blood eosinophil count as percentage of total leukocytes Automated blood eosinophil count as percentage of total leukocytes 4.3 0.0 - 6.0 08/23/[address] [facility] Automated blood hematocrit (volume fraction) Automated blood hematocrit (volume fraction) 33.1 34.2 - 44.1 08/23/[address] [facility] Automated blood lymphocyte count as percentage ot total leukocytes Automated blood lymphocyte count as percentage ot total leukocytes 28.3 18.0 - 39.1 08/23/[address] [facility] Automated blood monocyte count as percentage of total leukocytes Automated blood monocyte count as percentage of total leukocytes 8.3 4.4 - 11.3 08/23/[address] [facility] Automated blood neutrophil count Automated blood neutrophil count 3.3 2.1 - 6.9 08/23/[address] [facility] Automated blood platelet count (count/volume) Automated blood platelet count (count/volume) 196 140 - 360 08/23/[address] [facility] Automated blood segmented neutrophil count as percentage of total leukocytes Automated blood segmented neutrophil count as percentage of total leukocytes 58.1 38.7 - 80.0 08/23/[address] [facility] Automated erythrocyte mean corpuscular hemoglobin (mass per erythrocyte) Automated erythrocyte mean corpuscular hemoglobin (mass per erythrocyte) 29.4 28 - 32 08/23/[address] [facility] Automated erythrocyte mean corpuscular hemoglobin concentration measurement (mass/volume) Automated erythrocyte mean corpuscular hemoglobin concentration measurement (mass/volume) 34.1 31 - 35 08/23/[address] [facility] Automated erythrocyte mean corpuscular volume Automated erythrocyte mean corpuscular volume 86.2 81 - 99 08/23/[address] [facility] Blood erythrocytes automated count (number/volume) Blood erythrocytes automated count (number/volume) 3.84 3.6 - 5.1 08/23/[address] [facility] Blood hemoglobin measurement (moles/volume) Blood hemoglobin measurement (moles/volume) 11.3 12.0 - 16.0 08/23/[address] [facility] Blood leukocytes automated count (number/volume) Blood leukocytes automated count (number/volume) 5.75 4.8 - 10.8 08/23/[address] [facility] Blood lymphocytes count (number/volume) Blood lymphocytes count (number/volume) 1.6 1.0 - 3.2 08/23/[address] [facility] Blood monocytes automated count (number/volume) Blood monocytes automated count (number/volume) 0.5 0.2 - 0.8 08/23/[address] [facility] Red Cell Distribution Width 13.5 11.7 - 14.4 08/23/[address] [facility] IM GRANULOCYTES % 0.5 0.0 - 1.0 08/23/[address] [facility] Absolute Immature Granulocyte (auto 0.03 0 - 0.1 08/23/[address] [facility] Estimated glomerular filtration rate (GFR) determination Estimated glomerular filtration rate (GFR) determination >60 60 08/20/[address] [facility] Glucose measurement Glucose measurement 71 74 - 118 08/20/[address] [facility] Plasma globulin measurement (mass/volume) Plasma globulin measurement (mass/volume) 3.4 2.3 - 3.5 08/20/[address] [facility] Serum or plasma alanine aminotransferase measurement (enzymatic activity/volume) Serum or plasma alanine aminotransferase measurement (enzymatic activity/volume) 12 0 - 55 08/20/[address] [facility] Serum or plasma albumin measurement (mass/volume) Serum or plasma albumin measurement (mass/volume) 3.0 3.5 - 5.0 08/20/[address] [facility] Serum or plasma albumin/globulin mass ratio Serum or plasma albumin/globulin mass ratio 0.9 0.8 - 2.0 08/20/[address] [facility] Serum or plasma alkaline phosphatase measurement (enzymatic activity/volume) Serum or plasma alkaline phosphatase measurement (enzymatic activity/volume) 74 40 - 150 08/20/[address] [facility] Serum or plasma anion gap Serum or plasma anion gap 12.5 8 - 16 08/20/[address] [facility] Serum or plasma calcium measurement (mass/volume) Serum or plasma calcium measurement (mass/volume) 8.7 8.4 - 10.2 08/20/[address] [facility] Serum or plasma carbon dioxide, total measurement (moles/volume) Serum or plasma carbon dioxide, total measurement (moles/volume) 23 22 - 29 08/20/[address] [facility] Serum or plasma chloride measurement (moles/volume) Serum or plasma chloride measurement (moles/volume) 107 98 - 107 08/20/[address] [facility] Serum or plasma creatinine measurement (mass/volume) Serum or plasma creatinine measurement (mass/volume) 0.67 0.57 - 1.11 08/20/[address] [facility] Serum or plasma potassium measurement (moles/volume) Serum or plasma potassium measurement (moles/volume) 3.5 3.5 - 5.1 08/20/[address] [facility] Serum or plasma protein measurement (mass/volume) Serum or plasma protein measurement (mass/volume) 6.4 6.5 - 8.1 08/20/[address] [facility] Serum or plasma sodium measurement (moles/volume) Serum or plasma sodium measurement (moles/volume) 139 136 - 145 08/20/[address] [facility] Serum or plasma total bilirubin measurement (mass/volume) Serum or plasma total bilirubin measurement (mass/volume) 0.8 0.2 - 1.2 08/20/[address] [facility] Serum or plasma urea nitrogen measurement (mass/volume) Serum or plasma urea nitrogen measurement (mass/volume) 7 7 - 26 08/20/[address] [facility] Serum or plasma urea nitrogen/creatinine mass ratio Serum or plasma urea nitrogen/creatinine mass ratio 10 6 - 25 08/20/[address] [facility] Aspartate Amino Transf (AST/SGOT) 18 5 - 34 08/20/[address] [facility] Activated partial thromboplastin time (aPTT) in platelet poor plasma bycoagulation assay Activated partial thromboplastin time (aPTT) in platelet poor plasma bycoagulation assay 26.3 23.8 - 35.5 08/18/[address] [facility] Automated urine sediment leukocyte count by microscopy (number/high power field) Automated urine sediment leukocyte count by microscopy (number/high power field) <10 0 - 5 08/18/[address] [facility] Bacteria detection in urine sediment by light microscopy Bacteria detection in urine sediment by light microscopy NONE NONE 08/18/[address] [facility] Epithelial cells detection in urine sediment by light microscopy Epithelial cells detection in urine sediment by light microscopy FEW NONE 08/18/[address] [facility] Erythrocytes detection in urine sediment by light microscopy Erythrocytes detection in urine sediment by light microscopy <5 0 - 5 08/18/[address] [facility] INR in Platelet poor plasma by Coagulation assay INR in Platelet poor plasma by Coagulation assay 1.08 08/18/[address] [facility] Prothrombin time (PT) in platelet poor plasma by coagulation assay Prothrombin time (PT) in platelet poor plasma by coagulation assay 13.2 11.9 - 14.5 08/18/[address] [facility] Serum or plasma amylase measurement (enzymatic activity/volume) Serum or plasma amylase measurement (enzymatic activity/volume) 116 25 - 125 08/18/[address] [facility] Serum or plasma cholesterol in HDL measurement (mass/volume) Serum or plasma cholesterol in HDL measurement (mass/volume) 56 40 - 60 08/18/[address] [facility] Serum or plasma cholesterol in LDL measurement (mass/volume) Serum or plasma cholesterol in LDL measurement (mass/volume) 90 60 - 130 08/18/[address] [facility] Serum or plasma cholesterol measurement (mass/volume) Serum or plasma cholesterol measurement (mass/volume) 166 0 - 199 08/18/[address] [facility] Serum or plasma creatine kinase MB measurement (mass/volume) Serum or plasma creatine kinase MB measurement (mass/volume) 1.70 0 - 5.0 08/18/[address] [facility] Serum or plasma creatine kinase measurement (enzymatic activity/volume) Serum or plasma creatine kinase measurement (enzymatic activity/volume) 84 29 - 168 08/18/[address] [facility] Serum or plasma lipase measurement (enzymatic activity/volume) Serum or plasma lipase measurement (enzymatic activity/volume) 43 8 - 78 08/18/[address] [facility] Serum or plasma magnesium measurement (mass/volume) Serum or plasma magnesium measurement (mass/volume) 2.1 1.3 - 2.1 08/18/[address] [facility] Serum or plasma total cholesterol/cholesterol in HDL mass ratio Serum or plasma total cholesterol/cholesterol in HDL mass ratio 3.0 3.0 - 3.6 08/18/[address] [facility] Serum or plasma triglyceride measurement (mass/volume) Serum or plasma triglyceride measurement (mass/volume) 102 0 - 149 08/18/[address] [facility] Specific gravity of Urine by Test strip Specific gravity of Urine by Test strip 1.020 1.010 - 1.025 08/18/[address] [facility] Troponin I measurement by highly sensitive enzyme immunoassay Troponin I measurement by highly sensitive enzyme immunoassay 0.003 0 - 0.300 08/18/[address] [facility] Urine clarity Urine clarity CLEAR CLEAR 08/18/[address] [facility] Urine color determination Urine color determination YELLOW YELLOW 08/18/[address] [facility] Urine erythrocytes detection Urine erythrocytes detection TRACE NEGATIVE 08/18/[address] [facility] Urine glucose detection Urine glucose detection NEGATIVE NEGATIVE 08/18/[address] [facility] Urine ketones detection by automated test strip Urine ketones detection by automated test strip NEGATIVE NEGATIVE 08/18/[address] [facility] Urine leukocyte esterase detection by dipstick Urine leukocyte esterase detection by dipstick NEGATIVE NEGATIVE 08/18/[address] [facility] Urine nitrite detection Urine nitrite detection NEGATIVE NEGATIVE 08/18/[address] [facility] Urine pH measurement by automated test strip Urine pH measurement by automated test strip 7 5 - 7 08/18/[address] [facility] Urine protein measurement by test strip (mass/volume) Urine protein measurement by test strip (mass/volume) TRACE NEGATIVE 08/18/[address] [facility] Urine total bilirubin measurement (mass/volume) Urine total bilirubin measurement (mass/volume) NEGATIVE NEGATIVE 08/18/[address] [facility] Urine urobilinogen measurement by test strip (mass/volume) Urine urobilinogen measurement by test strip (mass/volume) 0.2 0.2 - 1 08/18/[address] [facility] Hemoglobin A1c Percent 5.5 4.0 - 7.0 08/18/[address] [facility] Lactic Acid Level 12.1 4.5 - 19.8 08/18/[address] [facility] ELECTROLYTES AGAP 10.1 10.0 - 20.0 10/13/2015 [facility] ELECTROLYTES eGFR 97 10/13/2015 Result Comment: The [...] should be multiplied by the estimated BMI. [facility] ELECTROLYTES Calcium Lvl 7.9 8.5 - 10.5 10/13/2015 [facility] ELECTROLYTES Sodium Lvl 137 135 - 145 10/13/2015 [facility] ELECTROLYTES Potassium Lvl 5.1 3.5 - 5.1 10/13/2015 [facility] ELECTROLYTES Chloride Lvl 103 95 - 109 10/13/2015 [facility] ELECTROLYTES CO2 29 24 - 32 10/13/2015 [facility] ELECTROLYTES BUN 11 7 - 22 10/13/2015 [facility] ELECTROLYTES Glucose Lvl 99 70 - 99 10/13/2015 [facility] ELECTROLYTES Creatinine Lvl 0.56 0.50 - 1.40 10/13/2015 [facility] HEMATOLOGY Monocytes # 1.0 0.0 - 0.8 10/13/2015 [facility] HEMATOLOGY Basophils 0.1 0.0 - 1.0 10/13/2015 [facility] HEMATOLOGY Monocytes 6.8 2.0 - 12.0 10/13/2015 [facility] HEMATOLOGY Lymphocytes # 1.0 1.0 - 5.5 10/13/2015 [facility] HEMATOLOGY Segs-Bands # 12.1 1.5 - 8.1 10/13/2015 [facility] HEMATOLOGY Lymphocytes 7.3 20.0 - 40.0 10/13/2015 [facility] HEMATOLOGY Segs 85.8 45.0 - 75.0 10/13/2015 [facility] HEMATOLOGY RDW 14.5 11.5 - 14.5 10/13/2015 [facility] HEMATOLOGY MPV 10.1 7.4 - 10.4 10/13/2015 [facility] HEMATOLOGY Platelet 179 133 - 450 10/13/2015 [facility] HEMATOLOGY MCHC 32.2 32.0 - 36.0 10/13/2015 [facility] HEMATOLOGY MCH 28.4 27.0 - 31.0 10/13/2015 [facility] HEMATOLOGY Hgb 11.8 12.0 - 16.0 10/13/2015 [facility] HEMATOLOGY MCV 88.2 80.0 - 98.0 10/13/2015 [facility] HEMATOLOGY Hct 36.6 36.0 - 48.0 10/13/2015 [facility] HEMATOLOGY RBC 4.16 4.20 - 5.40 10/13/2015 [facility] HEMATOLOGY WBC 14.1 3.7 - 10.4 10/13/2015 [facility] BLOOD BANK RESULTS ABO/Rh A POS 10/11/2015 [facility] BLOOD BANK RESULTS Antibody Scrn Negative (10/11/15 9:35 AM) 10/11/2015 [facility] BLOOD BANK RESULTS RBC product Product available (10/11/15 9:34 AM) 10/11/2015 [facility] ELECTROLYTES AGAP 8.1 10.0 - 20.0 10/06/2015 [facility] ELECTROLYTES eGFR 96 10/06/2015 Result Comment: The [...] Creatinine 0.7 0.5 - 1.4 08/30/[address] [facility] [place] [place] CHEM PANEL eGFR 90 08/30/2015 Result Comment: [...] urine culture Bacterial urine culture Urine Culture [facility] Pathology Reports No Data Provided for [...] include: greater and lesser saphenous veins SL: [id number] 03/15/2018 [facility] Barium enema air contrast DX Barium enema [...] of the colon were subsequently performed. 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 No [...] the distal descending colon and sigmoid colon. [id number] 11/15/2017 [facility] Abdomen/Pelvis w IV contrast CT Clinical Indication:70 [...] or pelvis. 3. Diverticulosis without diverticulitis. SL: [id number] 10/02/2016 [facility] Chest 1view DX Study: Chest 1view DX [place] 10/02/2016 Clinical Indication: - C64.1 Malignant neoplasm of right kidney, metastatic workup Comparison: Chest 02/23/2016 FINDINGS: Cardiac size is normal. There is minor aortic atherosclerosis. The lungs are well-expanded and appear clear. No vascular congestion or pleural effusion is seen. There is mild thoracic dextroscoliosis. IMPRESSION: No evidence of metastases or other significant abnormality. SL: [id number] 10/02/2016 [facility] Chest 2 views DX Patient Name: KAI MARIE : 1945; Age: 70 years y/o Female MR: [id number] Study: Chest 2 views DX dated 02/23/2016. Clinical Indication: C64.1 Malignant neoplasm of right kidney, except renal pelvis; Comparison: None Heart size is normal. Aortic calcification. Mediastinal structures otherwise unremarkable. Mild nonspecific biapical pleural thickening. No focal infiltrate identified within the lungs, no edema, no pleural effusions and no pneumothorax. Slight degenerative changes about the thoracic spine. SL: [id number] 02/23/2016 [facility] Abdomen w IV contrast CT Study: Abdomen [...] This is highly suspicious for malignancy. SL: [id number] 08/30/2015 [facility] Retroperitoneal Complete US Study: Retroperitoneal Complete US [...] Small volume bladder, otherwise unremarkable examination. SL: [id number] 07/08/2015 [facility] Consultation Notes No Data Provided for This [...] [facility] Respitory Rate 16 10/15/[address] [facility] [place] [place] Heart Rate 84 10/15/2015 [facility] Temperature [...] 10/12/2015 [facility] Weight 65 10/12/2015 [facility] BMI Calculated 26.21 10/12/2015 [facility] BMI Calculated 26.72 10/06/2015 [facility] Weight 66.273 10/06/2015 [facility] Height 157.48 cm 10/06/2015 [facility] Encounters Location Location Details Encounter Type Encounter Number Reason For Visit Attending Provider ADM Date DC Date Status Source [facility] Outpatient [id number] Andrew Dunlap 07/08/2015 07/09/2015 [facility] Outpatient [id number] Andrew Dunlap 08/30/2015 08/31/2015 [facility] Inpatient [id number] Andrew Dunlap 10/12/2015 10/15/2015 [facility] Outpatient [id number] Andrew Dunlap 02/23/2016 02/24/2016 [facility] Outpatient [id number] ANDREW DUNLAP 09/04/2016 [facility] Outpatient [id number] Andrew Dunlap 10/02/2016 10/03/2016 [facility] Discharged Inpatient [id number] JARAD MARTIN MD 08/18/2017 08/25/2017 [facility] Outpatient [id number] Micky Silva 11/15/2017 11/16/2017 [facility] Outpatient Imaging [facility] Out Diag Services [id number] Jarad Martin 03/15/2018 03/16/2018 [id number] Outpatient [id number] Astrid Colmenares 08/05/2018 [facility] Outpatient [id number] Astrid Colmenares 08/05/2018 08/06/2018 [facility] Procedures Procedure Code Date Perfomer Comments Source Computed tomography of abdomen and pelvis with contrast [id number] 08/18/2017 [facility] Laparoscopic partial nephrectomy [id number] 10/12/2015 [facility] Laparoscopic partial nephrectomy [id number] 10/12/2015 [facility] Laparoscopic partial nephrectomy [id number] 10/12/2015 [id number] Laparoscopic partial nephrectomy [id number] 10/12/2015 [facility] Suspension of bladder [id number] 04/30/2004 [facility] Suspension of bladder [id number] 04/30/2004 [facility] Suspension of bladder [id number] 04/30/2004 [id number] Suspension of bladder [id number] 04/30/2004 [facility] Ovarian operation<sup>1</sup> [id number] 04/30/2004 Right ovarian benign tumor [facility] Ovarian operation<sup>1</sup> [id number] 04/30/2004 Right ovarian benign tumor [facility] Ovarian operation<sup>1</sup> [id number] 04/30/2004 Right ovarian benign tumor [id number] Ovarian operation<sup>1</sup> [id number] 04/30/2004 Right ovarian benign tumor [facility] Hysterectomy [id number] 06/02/1993 [facility] Hysterectomy [id number] 06/02/1993 [facility] Hysterectomy [id number] 06/02/1993 [id number] Hysterectomy [id number] 06/02/1993 [facility] Assessment and Plan Assessment and Plan Date Source Extracted from:Title: Clinical Document Author: Andrew Dunlap MD Date: 10/14/15 Progress Daily [facility] Completed: Sep, 10:20 by Andrew Dunlap MD [...] Advance diet to regular Decrease IVF 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 DIAGNOSES and PROBLEMS s/p R partial [...] Meds: None PRN Meds (4): 10/14/15 acetaminophen-hydrocodone ([place]ox 7.5/325 oral tablet) 2 tab PO Q4H 10/12/15 naloxone 0.04 mg IVP Q2MIN 10/12/15 ondansetron 4 mg IVP Q6H 10/12/15 sodium chloride (Saline Flush 0.9%) 10 ml IVP PRN One Time Meds: None Continuous Infusions (2): 10/12/15 Lactated Ringers 1,000 mL 1,000 mL 25 ml/hr 10/12/15 sodium chloride 0.45% 1000 ml INJ 1000 mL 1,000 mL 30 ml/hr 10/15/2015 [facility] Plan of Care Plan of Care Date Source Discharge Date 08/25/17 2:14pm Disposition HOME, SELF-CARE Instructions/Education Provided Diverticulitis Prescriptions See Medication Section Referrals PCP (Internal Medicine) Order Date: 5-7 Days Entered Date: 08/25/2017 7:50am NAHUM COLEMAN MD (Gastroenterology) Order Date: 2 Weeks Entered Date: 08/25/2017 7:50am Address: [address] [place] [id number] Additional Instructions/Education DIET TOLERATED NO SEEDS, ACTIVITY TOLERATED KEEP ALL FOLLOW UP APPOINTMENTS RETURN TO ER FOR UNCONTROLLED PAIN NOT RELIEVED BY PAIN MEDICATIONS 08/25/[address] [facility] Social History Social History Date Source Social History Problem Response Recorded Date/Time Onset Date Status Hx Psychiatric Problems No 08/18/2017 8:00am Not Applicable Not Applicable 08/25/[address] [facility] Social History TypeResponse Substance Abuse Use: None. Type: Marijuana. Recreational Drug Route: Inhaled. Alcohol Current, Type Beer, Wine, Liquor. Frequency: 1-2 times per month. Previous treatment: None. Smoking Status Never smoker; Exposure to Tobacco Smoke None; Cigarette Smoking Last 365 Days No; Reg Smoking Cessation Counseling No 10/06/2015 [facility] Social History TypeResponse Substance Abuse Use: None. Type: Marijuana. Recreational Drug Route: Inhaled. Alcohol Current, Type Beer, Wine, Liquor. Frequency: 1-2 times per month. Previous treatment: None. Smoking Status Never smoker; Exposure to Tobacco Smoke None; Cigarette Smoking Last 365 Days No; Reg Smoking Cessation Counseling No entered on: 09/04/16 10/06/2015 [facility] Social [facility] TypeResponse Substance Abuse Use: None. Type: Marijuana. Recreational Drug Route: Inhaled. Alcohol Current, Type Beer, Wine, Liquor. Frequency: 1-2 times per month. Previous treatment: None. Smoking Status Never smoker; Exposure to Tobacco Smoke None; Cigarette Smoking Last 365 Days No; Reg Smoking Cessation Counseling No entered on: 08/05/18 10/06/2015 [id number] Social History TypeResponse Substance Abuse Use: None. [...] is advance directive on file with [facility]? No 08/18/17 8:00am If not on file with [facility] will patient provide a copy? Yes 08/18/17 2:33am Do you have a Directive to Physician? No 08/18/17 2:33am Do you have a Medical Power of Report Clerk? No 08/18/17 2:33am Do you have an [...] rights and responsibilities? Yes 08/18/17 2:33am 08/25/[address] [facility] Functional Status No Data Provided for This Section
[2018-10-29 13:43] VITALS: BP 101/53
--- NOTE | 2018-10-29 14:05 | NUR ---
Visit made by the Spiritual Care Department Pastoral Visitor, Leda Sánchez. Pt sleeping soundly and no family present. Pastoral Visitor left a card describing availability of professor of oceanography and instructions on how to contact a professor of oceanography. RAOUL ARGUELLES Packing House Laborer Spiritual Care Department O: [phone] Pager: [phone] ([phone] number calling from)
[2018-10-29] MEDS: DEXTROSE 5%/LACTATED RINGERS 1,000 ML IV SCH ×2 (14:22→19:04)
[2018-10-29] MEDS: LEVOFLOXACIN 500MG/D5W 100ML 100 ML IV SCH (14:22)
[2018-10-29] MEDS ORDERED: EPHEDRINE SULFATE INJ 50 MG/10 ML SYR ONE (14:32)
[2018-10-29] MEDS ORDERED: ONDANSETRON HCL INJ 2MG/ML 2ML 2 MG/ML VIAL ONE (14:32)
[2018-10-29] MEDS ORDERED: LIDOCAINE HCL 2% LOCAL INJ 5 ML SDV VIAL INJ ONE (14:32)
[2018-10-29] MEDS ORDERED: ROCURONIUM BROMIDE 10 MG/ML 5ML VIAL ONE (14:32)
[2018-10-29] MEDS ORDERED: PHENYLEPHRINE HCL 1% 10 MG/ML VIAL ONE (14:32)
[2018-10-29] MEDS ORDERED: KETOROLAC TROMETHAMINE 30 MG/ML VIAL ONE (14:32)
[2018-10-29] MEDS ORDERED: DEXAMETHASONE SOD PHOS INJ 4 MG/ML VIAL ONE (14:32)
[2018-10-29] MEDS ORDERED: PROPOFOL IV EMULSION 10 MG/ML 20 ML VIAL ONE (14:32)
[2018-10-29] MEDS ORDERED: SEVOFLURANE INHAL SOLN 250 ML PEN BTL ONE (14:32)
[2018-10-29] MEDS: METRONIDAZOLE 500MG/NS 100ML 100 ML IV SCH ×3 (15:33→23:56)
[2018-10-29 19:00] VITALS: BP 117/56
[2018-10-29] MEDS ORDERED: MIDAZOLAM HCL 2 MG/2 ML VIAL ONE (19:57)
[2018-10-29] MEDS ORDERED: FENTANYL CITRATE/PF 100MCG/2 ML INJ ONE (19:57)
[2018-10-29 20:00] VITALS: BP 118/56
[2018-10-29 22:32] VITALS: BP 118/56
[2018-10-30] VITALS (8 sets, daily range): BP systolic 111–130; BP diastolic 53–60
[2018-10-30] MEDS: DEXTROSE 5%/LACTATED RINGERS 1,000 ML IV SCH ×3 (01:43→21:15)
[2018-10-30] MEDS: METRONIDAZOLE 500MG/NS 100ML 100 ML IV SCH ×4 (05:29→23:04)
[2018-10-30 06:12] LABS: BASOPHILS % 0.2 % (0.0-1.0); EOSINOPHILS % 0.2 % (0.0-6.0); LYMPHOCYTES # (AUTO) 1.1 (1.0-3.2); LYMPHOCYTES % 7.2 % (18.0-39.1); MEAN CORPUSCULAR HEMOGLOBIN 29.4 pg (28-32); MEAN CORPUSCULAR HGB CONC 33.3 g/dL (31-35); MEAN CORPUSCULAR VOLUME 88.2 fL (81-99); MONOCYTES # (AUTO) 0.8 (0.2-0.8); MONOCYTES % 5.3 % (4.4-11.3); NEUTROPHILS # (AUTO) 13.4 (2.1-6.9); NEUTROPHILS % 86.5 % (38.7-80.0); PLATELET COUNT 164 x10e3/uL (140-360); RED BLOOD COUNT 3.06 x10e6/uL (3.6-5.1); RED CELL DISTRIBUTION WIDTH 13.6 % (11.7-14.4)
[2018-10-30 06:33] LABS: BLOOD UREA NITROGEN 15 mg/dL (7-26); BUN/CREATININE RATIO 19 (6-25); CARBON DIOXIDE 25 mmol/L (22-29); CHLORIDE 108 mmol/L (98-107); CREATININE, SERUM 0.78 mg/dL (0.57-1.11); EST GLOMERULAR FILTRATION RATE > 60 ML/MIN (60-); GLUCOSE 132 mg/dL (74-118); SODIUM 140 mmol/L (136-145)
--- NOTE | 2018-10-30 07:05 | NUR ---
PT RESTING IN BED AA0X3, SON AT BEDSIDE PT IS RESTING COMFORTABLY IN BED, STATES PAIN AT THIS TIME IS A 4/10 TO ABD. PT HAD SIGMOID RESECTION YESTERDAY, ABD MIDLINE DRESSING IN PLACE DRY AND INTACT PT IS ON RIVET HOLE MACHINE OPERATOR FOR PAIN CONTROL WITH IV FLUIDS WITH D5LR AT 125CC.HR. SITE IS CLEAN AND DRY. PT BUSTILLOS DC BY SOFTWARE TEST SPECIALIST. PT DUE TO VOID AT THIS TIME PT RUNNING SR ON TELEMETRY PT IS NOW ON CLEAR LIQUID DIET. WILL CONTINUE TO MONITOR PT CLOSELY, SIDE RAILSX2, BED WHEELS LOCKED, CALL LIGHT IS WITHIN EASY REACH, INSTRUCTED TO CALL FOR ASSISTANCE IF NEEDED
--- NOTE | 2018-10-30 07:53 | NUR ---
Medical consultation Requesting: DrGelber Reason; Medical mgmt cc: diverticulosis surgical mgmt HISTORY OF PRESENT ILLNESS: A 71-year-old woman with a history of diverticulitis, now for surgical mgmt of diverticular disease. Underwent procedure, recovering; \ PAST MEDICAL HISTORY: Diverticulitis, right renal cancer, status post partial nephrectomy, GIB, E.coli UTI PAST SURGICAL HISTORY: Hysterectomy, right renal cancer, status post partial nephrectomy. ALLERGIES: PER ELECTRONIC MEDICAL RECORD. FAMILY HISTORY/SOCIAL HISTORY: Patient is . She has 2 children. One is . No alcohol, illicits or cigarettes. MEDICATIONS: Per electronic medical record. REVIEW OF SYSTEMS: Denies any dizziness or chest pain. PHYSICAL EXAMINATION VITAL SIGNS: Reviewed. GENERAL: A tired-appearing woman resting in bed. HEENT: Anicteric. Pupils respond to light. No oral lesions. CARDIOVASCULAR: Normal S1 and S2. LUNGS: Moderate breath sounds. ABDOMEN: surgical dressing; soft; tender appropriately quadrants. EXTREMITIES: No edema or calf tenderness. NEUROLOGICAL: Alert and oriented times 3. Moving all extremities. SKIN: Dry. PSYCHIATRIC: Flat affect. LABS: Reviewed. MEDICATIONS: Reviewed. ASSESSMENT AND PLAN: A 71-year-old woman with: 1. Diverticulosis- s/p partial colon resection 2.HTN 3.Moderate anemia 4.Abdominal pain PLAN: s/p partial colon resection rehydrate pain control Consult PT; consult for SNF; pt lives alone (concerned about going home alone). SCD Jarad Jacome MD, PhD.
[2018-10-30] MEDS: PANTOPRAZOLE SOD 40 MG TABEC PO SCH (08:16)
--- NOTE | 2018-10-30 08:31 | NUR ---
SPOKE WITH PT ABOUT SNF ORDER, SIGNED CHOICE FOR [facility], FILED IN CHART AND LET REP KNOW TO COME EVAL PT.
[2018-10-30] MEDS ORDERED: VANCOMYCIN 1GM/NS 250 ML 250 ML IV ONE (09:00)
--- NOTE | 2018-10-30 10:12 | NUR ---
PT VOIDED INTO TOILET AFTER BUSTILLOS CATH REMOVAL
[2018-10-30] MEDS: LEVOFLOXACIN 500MG/D5W 100ML 100 ML IV SCH (12:02)
--- NOTE | 2018-10-30 15:49 | NUR ---
EDUCATED ABOUT IMM, SIGNED, FILED IN CHART, WITH COPY LEFT WITH FAMILY AT BEDSIDE.
[2018-10-30] MEDS ORDERED: SIMETHICONE 80 MG CHEW PO PRN (18:45)
[2018-10-30] MEDS: ATORVASTATIN 10 MG TAB PO SCH (21:15)
[2018-10-30] MEDS ORDERED: ALPRAZOLAM 0.25 MG TAB PO PRN (22:15)
--- NOTE | 2018-10-30 22:15 | NUR ---
INFORMED DR. MARTIN THAT PT IS ANXIOUS, HAD A V TACH RUN AND IS NOW BACK TO NORMAL SINUS RHYTHM WITH HR OF 94, BP 130/60. NEW ORDER RCV FOR METOPROLOL AND APRAZOLAM PRN.
[2018-10-30] MEDS: METOPROLOL TARTRATE 25 MG TAB PO SCH (22:33)
[2018-10-31] VITALS (7 sets, daily range): BP systolic 109–150; BP diastolic 54–66
[2018-10-31] MEDS: DEXTROSE 5%/LACTATED RINGERS 1,000 ML IV SCH ×2 (03:04→08:44)
[2018-10-31] MEDS: METRONIDAZOLE 500MG/NS 100ML 100 ML IV SCH ×4 (05:10→23:11)
[2018-10-31 05:41] LABS: HEMATOCRIT 25.6 % (34.2-44.1); HEMOGLOBIN 8.5 g/dL (12.0-16.0); MEAN CORPUSCULAR HEMOGLOBIN 29.6 pg (28-32); MEAN CORPUSCULAR HGB CONC 33.2 g/dL (31-35); MEAN CORPUSCULAR VOLUME 89.2 fL (81-99); PLATELET COUNT 145 x10e3/uL (140-360); RED BLOOD COUNT 2.87 x10e6/uL (3.6-5.1); RED CELL DISTRIBUTION WIDTH 13.6 % (11.7-14.4)
[2018-10-31 05:59] LABS: ANION GAP 10.7 mmol/L (8-16); BLOOD UREA NITROGEN 9 mg/dL (7-26); BUN/CREATININE RATIO 12 (6-25); CALCIUM 8.3 mg/dL (8.4-10.2); CARBON DIOXIDE 25 mmol/L (22-29); CHLORIDE 105 mmol/L (98-107); CREATININE, SERUM 0.75 mg/dL (0.57-1.11); EST GLOMERULAR FILTRATION RATE > 60 ML/MIN (60-); GLUCOSE 115 mg/dL (74-118); POTASSIUM 3.7 mmol/L (3.5-5.1); SODIUM 137 mmol/L (136-145)
--- NOTE | 2018-10-31 06:04 | NUR ---
IM- progress pancho O/N; no events REVIEW OF SYSTEMS: Denies any dizziness or chest pain. PHYSICAL EXAMINATION VITAL SIGNS: Reviewed. GENERAL: A tired-appearing woman resting in bed. HEENT: Anicteric. Pupils respond to light. No oral lesions. CARDIOVASCULAR: Normal S1 and S2. LUNGS: Moderate breath sounds. ABDOMEN: surgical dressing; soft; tender appropriately quadrants. EXTREMITIES: No edema or calf tenderness. NEUROLOGICAL: Alert and oriented times 3. Moving all extremities. SKIN: Dry. PSYCHIATRIC: Flat affect. LABS: Reviewed. MEDICATIONS: Reviewed. ASSESSMENT AND PLAN: A 71-year-old woman with: 1. Diverticulosis- s/p partial colon resection 2.HTN 3.Moderate anemia 4.Abdominal pain 5. Early sepsis PLAN: s/p partial colon resection rehydrate pain control Consult PT; consult for SNF; pt lives alone (concerned about going home alone). SCD 7/4 fever O/N; leukocytosis improving; Early sepsis. blood culures; cont abx; may need to change. Has CENTER CONSULTANT; pain well controlled; Jarad Jacome MD, PhD.
--- NOTE | 2018-10-31 06:10 | NUR ---
SPOKE TO DR. MARTIN REGARDING PT TEMP. NEW ORDERS RCV FOR PRN TYLENOL AND BLOOD CULTURE.
[2018-10-31] MEDS: PANTOPRAZOLE SOD 40 MG TABEC PO SCH (08:43)
[2018-10-31] MEDS: ACETAMINOPHEN 325 MG TAB PO PRN (08:44)
[2018-10-31] MEDS: ONDANSETRON HCL INJ 2MG/ML 2ML 2 MG/ML VIAL IV PRN (08:44)
[2018-10-31] MEDS: METOPROLOL TARTRATE 25 MG TAB PO SCH ×2 (11:51→23:11)
[2018-10-31] MEDS: LEVOFLOXACIN 500MG/D5W 100ML 100 ML IV SCH (11:51)
[2018-10-31] MEDS: HYDROCODONE/APAP 5MG-325MG TAB PO PRN (13:47)
[2018-10-31] MEDS: ATORVASTATIN 10 MG TAB PO SCH (23:11)
[2018-11-01] VITALS (9 sets, daily range): BP systolic 106–171; BP diastolic 63–76
[2018-11-01] MEDS: DIPHENHYDRAMINE HCL INJ 50 MG/ML VIAL IM PRN (03:45)
[2018-11-01] MEDS: METRONIDAZOLE 500MG/NS 100ML 100 ML IV SCH ×4 (05:30→23:35)
[2018-11-01] MEDS ORDERED: ZOLPIDEM TARTRATE 5 MG TAB PO PRN (07:00)
--- NOTE | 2018-11-01 07:13 | NUR ---
IM- progress pancho O/N; no events REVIEW OF SYSTEMS: Denies any dizziness or chest pain. PHYSICAL EXAMINATION VITAL SIGNS: Reviewed. GENERAL: A tired-appearing woman resting in bed. HEENT: Anicteric. Pupils respond to light. No oral lesions. CARDIOVASCULAR: Normal S1 and S2. LUNGS: Moderate breath sounds. ABDOMEN: surgical dressing; soft; tender appropriately quadrants. EXTREMITIES: No edema or calf tenderness. NEUROLOGICAL: Alert and oriented times 3. Moving all extremities. SKIN: Dry. PSYCHIATRIC: Flat affect. LABS: Reviewed. MEDICATIONS: Reviewed. ASSESSMENT AND PLAN: A 71-year-old woman with: 1. Diverticulosis- s/p partial colon resection 2.HTN 3.Moderate anemia 4.Abdominal pain 5. Early sepsis PLAN: s/p partial colon resection rehydrate pain control Consult PT; consult for SNF; pt lives alone (concerned about going home alone). SCD 7/ fever O/N; leukocytosis improving; Early sepsis. blood culures; cont abx; may need to change. Has INVASIVE CARDIOLOGIST; pain well controlled; 11/01 fever resolving; check labs; d/c planning; Jarad Jacome MD, PhD.
[2018-11-01 07:44] LABS: BASOPHILS % 0.3 % (0.0-1.0); EOSINOPHILS # (AUTO) 0.7 (0.0-0.4); EOSINOPHILS % 4.7 % (0.0-6.0); HEMATOCRIT 26.4 % (34.2-44.1); HEMOGLOBIN 8.8 g/dL (12.0-16.0); LYMPHOCYTES # (AUTO) 1.5 (1.0-3.2); LYMPHOCYTES % 10.2 % (18.0-39.1); MEAN CORPUSCULAR HEMOGLOBIN 29.2 pg (28-32); MEAN CORPUSCULAR HGB CONC 33.3 g/dL (31-35); MEAN CORPUSCULAR VOLUME 87.7 fL (81-99); MONOCYTES # (AUTO) 0.6 (0.2-0.8); NEUTROPHILS # (AUTO) 11.3 (2.1-6.9); NEUTROPHILS % 79.8 % (38.7-80.0); PLATELET COUNT 169 x10e3/uL (140-360); RED BLOOD COUNT 3.01 x10e6/uL (3.6-5.1); RED CELL DISTRIBUTION WIDTH 13.5 % (11.7-14.4)
[2018-11-01 07:57] LABS: ANION GAP 9.4 mmol/L (8-16); BLOOD UREA NITROGEN 6 mg/dL (7-26); BUN/CREATININE RATIO 9 (6-25); CALCIUM 8.5 mg/dL (8.4-10.2); CARBON DIOXIDE 27 mmol/L (22-29); CHLORIDE 107 mmol/L (98-107); CREATININE, SERUM 0.68 mg/dL (0.57-1.11); EST GLOMERULAR FILTRATION RATE > 60 ML/MIN (60-); GLUCOSE 100 mg/dL (74-118); POTASSIUM 3.4 mmol/L (3.5-5.1); SODIUM 140 mmol/L (136-145)
[2018-11-01] MEDS: PANTOPRAZOLE SOD 40 MG TABEC PO SCH (08:45)
[2018-11-01] MEDS: METOPROLOL TARTRATE 25 MG TAB PO SCH ×2 (08:47→21:14)
--- NOTE | 2018-11-01 09:05 | NUR ---
[facility]
[2018-11-01] MEDS: DEXTROSE 5%/LACTATED RINGERS 1,000 ML IV SCH (11:15)
[2018-11-01] MEDS: LEVOFLOXACIN 500MG/D5W 100ML 100 ML IV SCH (12:25)
--- NOTE | 2018-11-01 13:16 | NUR ---
EDUCATED ABOUT IMM, SIGNED, FILED IN CHART, WITH COPY LEFT WITH FAMILY AT BEDSIDE.
--- NOTE | 2018-11-01 13:37 | NUR ---
PATIENT'S SON STATED THAT HE AND HIS MOTHER ARE CONCERNED ABOUT DEVELOPING SEPSIS LIKE PATIENT'S MOTHER AFTER SHE HAD THE NEIL TYPE OF PROCEDURE, PATIENT'S SON STATED THAT HE IS SCARED AND IS HOPING THAT WE CAN DO A XRAY OR CT SCAN, CALLED DR. NICOLE'S ANSWERING SERVICE AT PATIENT FAMILY REQUEST.
--- NOTE | 2018-11-01 13:45 | NUR ---
SPOKE TO DR. NICOLE, HE DOES NOT WANT ANY SCANS AND HE WANTS TO KEEP PATIENT ON FULL LIQUID DIET.
[2018-11-01] MEDS: ONDANSETRON HCL INJ 2MG/ML 2ML 2 MG/ML VIAL IV PRN (14:15)
--- NOTE | 2018-11-01 19:00 | NUR ---
BEDSIDE SHIFT REPORT PERFORMED, RECEIVED PT LAYING SEMI FOWLERS IN BED AAOX3, RR EVEN AND NON-LABORED, ON ROOM AIR. NO S/SX OF DISTRESS NOTED. PT ASSISTED TO AMBULATE TO BATHROOM AND BACK TO BED. INCISION TO ABD NOTED TO BE CDI OPEN TO AIR. LEFT PT LAYING SEMI FOWLERS IN BED, BED IN LOW LOCKED POSITION, SIDE RAILS UPX2, CALL LIGHT AND PHONE WITHIN REACH.
[2018-11-01] MEDS: ATORVASTATIN 10 MG TAB PO SCH (21:14)
[2018-11-01] MEDS: ZOLPIDEM TARTRATE 5 MG TAB PO PRN (23:35)
[2018-11-02] VITALS (7 sets, daily range): BP systolic 125–175; BP diastolic 60–78
[2018-11-02] MEDS: METRONIDAZOLE 500MG/NS 100ML 100 ML IV SCH ×3 (05:21→16:28)
[2018-11-02] MEDS: DEXTROSE 5%/LACTATED RINGERS 1,000 ML IV SCH (05:21)
[2018-11-02] MEDS: PANTOPRAZOLE SOD 40 MG TABEC PO SCH (08:29)
[2018-11-02] MEDS: METOPROLOL TARTRATE 25 MG TAB PO SCH ×2 (08:30→20:28)
[2018-11-02] MEDS ORDERED: SODIUM CHLORIDE FLUSH 10 ML SYR INJ PRN (08:30)
[2018-11-02] MEDS: LEVOFLOXACIN 500MG/D5W 100ML 100 ML IV SCH (12:06)
--- NOTE | 2018-11-02 13:30 | NUR ---
IM- progress pancho O/N; no events REVIEW OF SYSTEMS: Denies any dizziness or chest pain. PHYSICAL EXAMINATION VITAL SIGNS: Reviewed. GENERAL: A tired-appearing woman resting in bed. HEENT: Anicteric. Pupils respond to light. No oral lesions. CARDIOVASCULAR: Normal S1 and S2. LUNGS: Moderate breath sounds. ABDOMEN: surgical dressing; soft; tender appropriately quadrants. EXTREMITIES: No edema or calf tenderness. NEUROLOGICAL: Alert and oriented times 3. Moving all extremities. SKIN: Dry. PSYCHIATRIC: Flat affect. LABS: Reviewed. MEDICATIONS: Reviewed. ASSESSMENT AND PLAN: A 71-year-old woman with: 1. Diverticulosis- s/p partial colon resection 2.HTN 3.Moderate anemia 4.Abdominal pain 5. Early sepsis PLAN: s/p partial colon resection rehydrate pain control Consult PT; consult for SNF; pt lives alone (concerned about going home alone). SCD 7/ fever O/N; leukocytosis improving; Early sepsis. blood culures; cont abx; may need to change. Has ACCOUNT ADMINISTRATOR; pain well controlled; 11/01 fever resolving; check labs; d/c planning; 11/02 check labs; Jarad Jacome MD, PhD.
[2018-11-02 14:12] LABS: BASOPHILS % 0.4 % (0.0-1.0); EOSINOPHILS # (AUTO) 0.6 (0.0-0.4); EOSINOPHILS % 5.3 % (0.0-6.0); HEMOGLOBIN 9.9 g/dL (12.0-16.0); LYMPHOCYTES # (AUTO) 0.8 (1.0-3.2); LYMPHOCYTES % 8.1 % (18.0-39.1); MEAN CORPUSCULAR HEMOGLOBIN 29.8 pg (28-32); MEAN CORPUSCULAR HGB CONC 34.1 g/dL (31-35); MEAN CORPUSCULAR VOLUME 87.3 fL (81-99); MONOCYTES # (AUTO) 0.7 (0.2-0.8); MONOCYTES % 7.1 % (4.4-11.3); NEUTROPHILS % 77.4 % (38.7-80.0); PLATELET COUNT 218 x10e3/uL (140-360); RED BLOOD COUNT 3.32 x10e6/uL (3.6-5.1); RED CELL DISTRIBUTION WIDTH 13.3 % (11.7-14.4)
[2018-11-02 14:31] LABS: ANION GAP 10.7 mmol/L (8-16); BLOOD UREA NITROGEN 8 mg/dL (7-26); BUN/CREATININE RATIO 11 (6-25); CALCIUM 8.6 mg/dL (8.4-10.2); CARBON DIOXIDE 29 mmol/L (22-29); CHLORIDE 105 mmol/L (98-107); EST GLOMERULAR FILTRATION RATE > 60 ML/MIN (60-); GLUCOSE 143 mg/dL (74-118); MAGNESIUM 1.8 MG/DL (1.3-2.1); POTASSIUM 3.7 mmol/L (3.5-5.1); SODIUM 141 mmol/L (136-145)
[2018-11-02] MEDS: HYDROCODONE/APAP 5MG-325MG TAB PO PRN ×2 (16:28→23:15)
--- NOTE | 2018-11-02 19:00 | NUR ---
BEDSIDE SHIFT REPORT PERFORMED, RECEIVED PT LAYING SEMI FOWLERS IN BED AAOX3, RR EVEN AND NON-LABORED, ON ROOM AIR. NO S/SX OF DISTRESS NOTED. INCISION TO ABD NOTED TO BE CDI OPEN TO AIR. LEFT PT LAYING SEMI FOWLERS IN BED, BED IN LOW LOCKED POSITION, SIDE RAILS UPX2, CALL LIGHT AND PHONE WITHIN REACH.
[2018-11-02] MEDS: ATORVASTATIN 10 MG TAB PO SCH (20:28)
[2018-11-02] MEDS: ZOLPIDEM TARTRATE 5 MG TAB PO PRN (21:38)
[2018-11-03] VITALS (8 sets, daily range): BP systolic 130–175; BP diastolic 64–81
[2018-11-03] MEDS: METRONIDAZOLE 500MG/NS 100ML 100 ML IV SCH ×5 (00:10→23:41)
[2018-11-03] MEDS: PANTOPRAZOLE SOD 40 MG TABEC PO SCH (08:44)
[2018-11-03] MEDS: HYDROCODONE/APAP 5MG-325MG TAB PO PRN (08:44)
[2018-11-03] MEDS: METOPROLOL TARTRATE 25 MG TAB PO SCH ×2 (09:15→20:59)
--- NOTE | 2018-11-03 11:16 | NUR ---
IM- progress pancho O/N; no events REVIEW OF SYSTEMS: Denies any dizziness or chest pain. PHYSICAL EXAMINATION VITAL SIGNS: Reviewed. GENERAL: A tired-appearing woman resting in bed. HEENT: Anicteric. Pupils respond to light. No oral lesions. CARDIOVASCULAR: Normal S1 and S2. LUNGS: Moderate breath sounds. ABDOMEN: surgical dressing; soft; tender appropriately quadrants. EXTREMITIES: No edema or calf tenderness. NEUROLOGICAL: Alert and oriented times 3. Moving all extremities. SKIN: Dry. PSYCHIATRIC: Flat affect. LABS: Reviewed. MEDICATIONS: Reviewed. ASSESSMENT AND PLAN: A 71-year-old woman with: 1. Diverticulosis- s/p partial colon resection 2.HTN 3.Moderate anemia 4.Abdominal pain 5. Early sepsis PLAN: s/p partial colon resection rehydrate pain control Consult PT; consult for SNF; pt lives alone (concerned about going home alone). SCD 10/31 fever O/N; leukocytosis improving; Early sepsis. blood culures; cont abx; may need to change. Has CAP COVERER; pain well controlled; 11/01 fever resolving; check labs; d/c planning; 11/02 check labs; 11/03 control BP Jarad Jacome MD, PhD.
[2018-11-03] MEDS: LEVOFLOXACIN 500MG/D5W 100ML 100 ML IV SCH (11:45)
--- NOTE | 2018-11-03 11:45 | NUR ---
PT SHOWERED, NOW SITTING IN BS CHAIR, CALL LIGHT WITHIN REACH
--- NOTE | 2018-11-03 13:04 | NUR ---
PT C/O FEELING "COLD", TEMP CHECKED AT 98.0 F, WARM BLANKET PROVIDED
[2018-11-03] MEDS: ONDANSETRON HCL INJ 2MG/ML 2ML 2 MG/ML VIAL IV PRN ×2 (16:38→20:59)
--- NOTE | 2018-11-03 17:53 | NUR ---
PT REPORTS "UNABLE TO EAT ANYTHING ALL DAY EXCEPT FEW BITES" DUE TO NAUSEA OFF AND ON, PT ALSO STATES "HAS BEEN THIS WAY SINCE SURGERY" , STATES ZOFRAN IS HELPING, BUT "NAUSEA EVERYDAY", TELEPHONED MD NICOLE TO MAKE AWARE, AWAITING CALL BACK, SPOKE WITH JEAN PAUL
--- NOTE | 2018-11-03 17:58 | NUR ---
SPOKE WITH MD NICOLE, MADE AWARE OF PT COMPLAINING OF NAUSEA "SINCE SURGERY" AND SHE "HASN'T EATEN ALL DAY EXCEPT FOR A FEW BITES", ORDERS NOTED TO CONTINUE ZOFRAN AND MONITOR
--- NOTE | 2018-11-03 18:51 | NUR ---
WALKING ROUNDS PERFORMED, RECEIVED PT LAYING SEMI FOWLERS IN BED, AAOX3, RR EVEN AND NON-LABORED, ON ROOM AIR. NO S/SX OF DISTRESS NOTED. DRESSING TO (R) HIP NOTED TO BE CDI. LEFT PT LAYING SEMI FOWLERS IN BED, BED IN LOW LOCKED POSITION, SIDE RAILS UPX2, CALL LIGHT AND PHONE WITHIN REACH. Addendum: 11/03/18 at 1958 by Monika Ceron RN PLEASE DISREGARD NOTE
--- NOTE | 2018-11-03 20:58 | Diagnostic Imaging Report ---
EXAM: Abdomen 2 Views INDICATION: ^NAUSEA, POOR APPETITE POST SURGERY ^[id number] ^2024 COMPARISON: CT dated 08/18/2017 FINDINGS: Nonobstructive bowel gas pattern. No signs of pneumoperitoneum. Midline surgical del are in place. Left pelvic surgical clips. No acute osseous abnormality. Degenerative changes of lower lumbar spine Lung bases are clear. IMPRESSION: 1. Nonobstructive bowel gas pattern. Signed by: Dr. Gerber Ornelas MD on 11/03/2018 8:55 PM
[2018-11-03] MEDS: ATORVASTATIN 10 MG TAB PO SCH (20:59)
[2018-11-03] MEDS: DEXTROSE 5%/0.45% SOD CHL 1,000 ML IV SCH (20:59)
[2018-11-04] VITALS (8 sets, daily range): BP systolic 120–174; BP diastolic 60–73
[2018-11-04 05:50] LABS: HEMATOCRIT 27.4 % (34.2-44.1); HEMOGLOBIN 9.4 g/dL (12.0-16.0); MEAN CORPUSCULAR HEMOGLOBIN 29.5 pg (28-32); MEAN CORPUSCULAR HGB CONC 34.3 g/dL (31-35); MEAN CORPUSCULAR VOLUME 85.9 fL (81-99); PLATELET COUNT 240 x10e3/uL (140-360); RED BLOOD COUNT 3.19 x10e6/uL (3.6-5.1); RED CELL DISTRIBUTION WIDTH 13.3 % (11.7-14.4)
[2018-11-04] MEDS: METRONIDAZOLE 500MG/NS 100ML 100 ML IV SCH ×4 (06:05→23:52)
--- NOTE | 2018-11-04 07:27 | NUR ---
IM- progress pancho O/N; no events REVIEW OF SYSTEMS: Denies any dizziness or chest pain. PHYSICAL EXAMINATION VITAL SIGNS: Reviewed. GENERAL: A tired-appearing woman resting in bed. HEENT: Anicteric. Pupils respond to light. No oral lesions. CARDIOVASCULAR: Normal S1 and S2. LUNGS: Moderate breath sounds. ABDOMEN: surgical dressing; soft; tender appropriately quadrants. EXTREMITIES: No edema or calf tenderness. NEUROLOGICAL: Alert and oriented times 3. Moving all extremities. SKIN: Dry. PSYCHIATRIC: Flat affect. LABS: Reviewed. MEDICATIONS: Reviewed. ASSESSMENT AND PLAN: A 71-year-old woman with: 1. Diverticulosis- s/p partial colon resection 2.HTN 3.Moderate anemia 4.Abdominal pain 5. Early sepsis PLAN: s/p partial colon resection rehydrate pain control Consult PT; consult for SNF; pt lives alone (concerned about going home alone). SCD 7/ fever O/N; leukocytosis improving; Early sepsis. blood culures; cont abx; may need to change. Has SUPERVISOR SLEEPING BAG DEPARTMENT; pain well controlled; 11/01 fever resolving; check labs; d/c planning; 11/02 check labs; 11/03 control BP 11/04 ready for snf; check Koki Jacome MD, PhD.
[2018-11-04] MEDS: DEXTROSE 5%/0.45% SOD CHL 1,000 ML IV SCH ×2 (09:05→11:16)
[2018-11-04] MEDS: PANTOPRAZOLE SOD 40 MG TABEC PO SCH (09:24)
--- NOTE | 2018-11-04 10:58 | NUR ---
PATIENT PENDING AUTH FOR [facility] FACILITY. PATIENT TO DISCHARGE TO SNF UPON ACCEPTANCE: [facility] Address: [address], [place] [address] FAX: [phone]
[2018-11-04] MEDS: LEVOFLOXACIN 500MG/D5W 100ML 100 ML IV SCH (11:16)
[2018-11-04] MEDS: METOPROLOL TARTRATE 25 MG TAB PO SCH ×2 (11:16→23:15)
--- NOTE | 2018-11-04 12:30 | NUR ---
SPOKE WITH MD NICOLE REGARDING PT TRANSFER TO [facility]STIE STATES PT IS NOT CLEAR . CAN BE TRANSFERRED TOMORROW AFTER HE SEES HER
--- NOTE | 2018-11-04 13:25 | NUR ---
ASSESSMENT: Spiritual distress Pt feels isolated and discouraged. Pt recounts multiple losses (father, , son, etc.) in previous 5 years. Pt states her son, Alessandro, is supportive but she doesn't want to be burdensome to him. Pt states she wants "to go home." Pt states her brother who "has a large house" wants her to stay with him during recovery but she would prefer to "go home." Pt identifies as Samaritan. Intervention: Provided unhurried empathic listening. Facilitated review of losses. Provided prayer and information on how to reach arborer, if needed. Outcome: Pt expressed appreciation for visit. Will follow as able. RAOUL ARGUELLES Uat Tester Spiritual Care Department O: [phone] Pager: [phone] ([phone] number calling from)
--- NOTE | 2018-11-04 15:45 | NUR ---
Nutrition Screen Note RD Recommendation for Physician: -Continue diet as ordered Plan of Care: RD following, monitoring for tolerance and adequacy Nutrition reason for involvement: LOS Primary Diagnose(s): Diverticulosis- s/p partial colon resection PMH: HTN Ht: 63in Wt: 141lb BMI: 25.0kg/m2 IBW: 115lb +/- 10% RD Assessment: (11/04) Chart reviewed. Labs and meds reviewed. 72yo F, who was admitted for abdominal pain. Pt had partial colon resection on 10/29. POD 6. Placement pending. Visited pt in the room. Pt reported poor appetite with 25% recorded meal intake. Pt also complained of some nausea and diarrhea but denied any abdominal pain or vomiting episode today. No complains of chewing or swallowing difficulty reported. Obtained diet preferences. Will communicate with kitchen. Current Diet: Regular diet Malnutrition Evaluation (11/04/2018) The patient does not meet criteria for a specified degree of malnutrition at this time. Will re-evaluate at follow-up as appropriate. Diet Education Needs Assessment: Diet education not indicated. Nutrition Care Level: low Signed: Thu Phillips, MS, RD, LD
[2018-11-04] MEDS: ACETAMINOPHEN 325 MG TAB PO PRN (16:31)
[2018-11-04] MEDS: ATORVASTATIN 10 MG TAB PO SCH (20:19)
[2018-11-04] MEDS ORDERED: POTASSIUM CHLORIDE 20 MEQ TAB CR PO ONE (21:30)
[2018-11-04] MEDS: DIPHENHYDRAMINE HCL INJ 50 MG/ML VIAL IM PRN (23:52)
[2018-11-05] VITALS: BP 150/65
[2018-11-05 04:00] VITALS: BP 164/73
[2018-11-05] MEDS: DEXTROSE 5%/0.45% SOD CHL 1,000 ML IV SCH (04:48)
[2018-11-05] MEDS: METRONIDAZOLE 500MG/NS 100ML 100 ML IV SCH (05:45)
[2018-11-05 06:53] LABS: ANION GAP 9.8 mmol/L (8-16); BLOOD UREA NITROGEN 6 mg/dL (7-26); BUN/CREATININE RATIO 10 (6-25); CALCIUM 8.3 mg/dL (8.4-10.2); CARBON DIOXIDE 28 mmol/L (22-29); CHLORIDE 106 mmol/L (98-107); CREATININE, SERUM 0.62 mg/dL (0.57-1.11); EST GLOMERULAR FILTRATION RATE > 60 ML/MIN (60-); GLUCOSE 104 mg/dL (74-118); MAGNESIUM 1.8 MG/DL (1.3-2.1); PHOSPHORUS 2.3 MG/DL (2.3-4.7); POTASSIUM 3.8 mmol/L (3.5-5.1); SODIUM 140 mmol/L (136-145)
[2018-11-05 08:17] VITALS: BP 153/69
[2018-11-05] MEDS: PANTOPRAZOLE SOD 40 MG TABEC PO SCH (08:17)
[2018-11-05 08:28] VITALS: BP 153/69
--- NOTE | 2018-11-05 09:25 | NUR ---
ASSESSMENT: Spiritual concern Pt hopeful concerning illness. Pt states she is "much better than yesterday." Pt states she will be transferring to SNF later today and will be going to her brother's home for recovery. Pt expressed appreciation for previous visit, "sometimes you need to talk to someone who is not family." Intervention: Provided supportive listening. Reminded pt of retail performance specialist's availability during hospitalization. Outcome: No need to follow at this time. RAOUL ARGUELLES Amr Physician Spiritual Care Department O: [phone] Pager: [phone] ([phone] number calling from)
[2018-11-05] MEDS: METOPROLOL TARTRATE 25 MG TAB PO SCH (10:20)
[2018-11-05] MEDS ORDERED: ONDANSETRON HCL 4 MG ORAL DISINTEGRATING TAB PO PRN (10:30)
--- NOTE | 2018-11-05 11:29 | NUR ---
Received MOT for transfer to SNF [facility] [id number], [place] [address] Jacome to attend RTF completed by SW placed at nurse's station with pt's packet.
--- NOTE | 2018-11-05 11:46 | Discharge Summary ---
ADMISSION DIAGNOSIS: Recurrent sigmoid diverticulitis. DISCHARGE DIAGNOSIS: Sigmoid diverticulitis with contained perforation. PRINCIPAL PROCEDURE: Diagnostic laparoscopy and open sigmoid colon resection. HISTORY OF PRESENT ILLNESS: The patient is a 72-year-old female, who has had recurrent episodes of sigmoid diverticulitis. HOSPITAL COURSE: The patient was admitted to the hospital, underwent surgery same day as admission. She had diagnostic laparoscopy and open sigmoid colon resection. Postoperatively, the patient was stable, seen in consultation by Dr. Jarad Jacome. She was started on liquid diet on the 1st postop day. Bowel function returned to normal. Diet was advanced slowly. She did have some low-grade fever and was maintained on IV antibiotics because there was a perforation, which was contained, found at the time of surgery with some localized fecal contamination. The patient was out of bed ambulating. She did have some nausea, this gradually resolved. Abdominal x-ray in the postop period was unremarkable. She was discharged to longterm facility on the 7th postop day. At time of discharge, she was afebrile, tolerating diet with normal bowel function, wound was clean. Discharge medication was Tylenol No. 3 and she will continue on same home medications that she took prior to admission. She will follow up with Dr. Emerson approximately one week after discharge. Sent to the nursing facility in satisfactory condition on regular diet. MD IVAN Whitehead/LISANDRA /[id number]
[2018-11-05 12:00] VITALS: BP 125/70
--- NOTE | 2018-11-05 12:02 | NUR ---
REPORT CALLED TO [facility] . SPOKE WITH [facility] CALLING AMBULANCE TO GET PT TRANSPORTED DC TELE DC IV PRESSURE DRESSING APPLIED AND TAPED
--- NOTE | 2018-11-05 13:15 | NUR ---
PT OFF UNIT TO [facility] VIA AMBULANCE
== END 2018-11-05 13:15 | DRG 329 ==
LOC: OR 06:53 → PACU V 11:37 → MED/SURG 12:47
PROVIDERS: ADMIT Surgery; ATTEND Surgery
PROC: 0DJD4ZZ Inspection of Lower Intestinal Tract, Percutaneous Endoscopic Approach (ICD-10-PCS; 2018-10-29)
PROC: 0DTN0ZZ Resection of Sigmoid Colon, Open Approach (ICD-10-PCS; principal; 2018-10-29 09:00)
DX: K57.20 Diverticulitis of large intestine with perforation and abscess without bleeding (principal); K65.0 Generalized (acute) peritonitis; A41.9 Sepsis, unspecified organism; K66.0 Peritoneal adhesions (postprocedural) (postinfection); I10 Essential (primary) hypertension; Z53.31 Laparoscopic surgical procedure converted to open procedure; Z01.810 Encounter for preprocedural cardiovascular examination; Z01.812 Encounter for preprocedural laboratory examination; Z88.0 Allergy status to penicillin; Z88.2 Allergy status to sulfonamides; Z88.8 Allergy status to other drugs, medicaments and biological substances; Z85.53 Personal history of malignant neoplasm of renal pelvis; Z90.5 Acquired absence of kidney; D64.9 Anemia, unspecified
CPT/HCPCS: 36415; 74019; 80048; 83735; 84100; 84132; 85007; 85025; 85027; 87040; 88307; 93005; 96361; 97139; J1100; J1200; J1885; J1956; J2001; J2250; J2270; J2370; J2405; J3010